=== PATIENT | male | born 1980 | race Caucasian/White ===

== ENCOUNTER 2019-11-09 22:14 | Emergency (ER) | payer BC, SELFPAY ==
[2019-11-09 22:17] VITALS: BP 108/89; PULSE 127; RESP 16; TEMP 36.7; O2SAT 100
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
[2019-11-09] MEDS: ziprasidone 20 mg/mL SDV IM (23:19)
--- NOTE | 2019-11-09 23:22 | PC.NURSE ---
PORTABLE XRAY AT BEDSIDE
--- NOTE | 2019-11-10 00:18 | PC.NURSE ---
pt return from CT by stretcher with RN
[2019-11-10 01:16] VITALS: BP 108/67; PULSE 117; O2SAT 95
[2019-11-10 02:26] VITALS: BP 118/78; PULSE 94; RESP 18; O2SAT 97
== END 2019-11-10 02:27 | disposition home or self-care (01) ==
PROVIDERS: Emergency Provider Emergency Medicine; Family Provider Family Medicine; PCP Family Medicine
DX: S51.812A Laceration without foreign body of left forearm, initial encounter (principal); S06.0X0A Concussion without loss of consciousness, initial encounter; F17.200 Nicotine dependence, unspecified, uncomplicated; F10.129 Alcohol abuse with intoxication, unspecified
CPT/HCPCS: 12002; 70450; 70486; 72125; 73090; 96372; 99281; 99283; J3486

== ENCOUNTER 2019-12-01 13:40 | Inpatient (IN) | payer BC, SELFPAY ==
[2019-12-01 13:42] VITALS: BP 142/90; PULSE 123; RESP 18; TEMP 36.4; O2SAT 98; BMI 24.3
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
[2019-12-01 14:33] LABS: Basophils # 0.1 10^3/uL (0.0-0.1); Basophils % 0.7 %; Eosinophils # 0.2 10^3/uL (0.0-0.8); Eosinophils % 2.7 %; Hematocrit 42.1 % (42.0-52.0); Lymphocytes # 1.5 10^3/uL (0.8-4.8); Mean Corpuscular HGB Conc 33.3 g/dL (30.0-36.0); Mean Corpuscular Hemoglobin 31.6 pg (28.0-34.0); Monocytes # 0.4 10^3/uL (0.2-0.9); Monocytes % 3.9 %; Neutrophils # 6.8 10^3/uL (1.8-7.7); Neutrophils % 75.5 %; Nucleated Red Blood Cells % 0 %; Platelet Count 316 10^3/cmm (130-400); Red Blood Count 4.43 10^6/uL (4.1-5.3); Red Cell Distribution Width 12.9 % (12.1-15.1)
[2019-12-01 14:50] LABS: Alanine Aminotransferase 25 U/L (0-41); Albumin Level 4.3 g/dL (3.5-5.2); Alkaline Phosphatase 78 IU/L (40-130); Anion Gap 15.5 (5-19); Aspartate Amino Transferase 21 U/L (0-40); Blood Urea Nitrogen 13 mg/dL (6-20); Calcium 9.4 mg/dL (8.5-10.5); Carbon Dioxide 26 mmol/L (22-29); Chloride 101 mmol/L (98-107); Globulin 3.1 g/dL (1.3-4.6); Glomerular Filtration Rate 107.1 mL/min (90-130); Glucose 101 mg/dL (65-115); Osmolality Calculated 282 mOsm/kg (285-295); Potassium 4.5 mmol/L (3.5-5.1); Sodium 138 mmol/L (136-145); Total Bilirubin 0.2 mg/dL (0.15-1.2); Total Protein 7.4 g/dL (6.6-8.7)
[2019-12-01 14:57] LABS: Acetaminophen < 5.0 ug/mL (10-30); Alcohol Level < 10 mg/dL (0-10); Salicylate < 0.3 mg/dL (3-10)
[2019-12-01 15:25] LABS: Amphetamines Screen Urine Positive (Negative); Barbiturates Screen Urine Negative (Negative); Benzodiazepines Screen Urine Positive (Negative); Cocaine Screen Urine Negative (Negative); Opiate Screen Urine Positive (Negative); PCP Screen Urine Negative (Negative); THC Screen Urine Negative (Negative)
[2019-12-01 15:29] VITALS: BP 119/75; PULSE 107; RESP 18
[2019-12-01 15:38] VITALS: BP 118/85; PULSE 109; RESP 18; O2SAT 96
[2019-12-01 22:00] VITALS: BP 107/63; PULSE 101; RESP 19; O2SAT 96
[2019-12-01] MEDS: nicotine 2 mg Gum BUCCAL (22:19)
[2019-12-01] MEDS: HYDROcodone-acetaminophen 10-325 mg Tablet 1 TAB PO (22:48)
--- NOTE | 2019-12-02 01:37 | PC.NURSE ---
Pt woke, after sleeping all evening, demanding to see the Dr, requesting meds, wanting to be discharged. was able to get pt calmed. pt c/o not having dinner, not being offered anything to drink. pt was reminded he was offered, and had eaten a sandwich. pt requested more food. pt reports he takes Xanax, and hydrocodone daily, and if I don't get it there will be hell to pay . Dr notified, a one time dose was ordered. Pt was thankful, and returned to room. Continue to monitor.
[2019-12-02 06:00] VITALS: BP 113/81; PULSE 95; RESP 15; TEMP 36.7; O2SAT 99
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
[2019-12-02] MEDS: nicotine 21 mg Patch 1 PATCH TRANSDERMA (10:16)
[2019-12-02] MEDS: HYDROcodone-acetaminophen 10-325 mg Tablet 1 TAB PO ×3 (10:32→22:37)
[2019-12-02 14:00] VITALS: BP 119/76; PULSE 68; RESP 18
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
[2019-12-02 22:00] VITALS: BP 105/67; PULSE 93; RESP 15; TEMP 36.8; O2SAT 96
[2019-12-02] MEDS: escitalopram 10 mg Tablet 20 MG PO (22:36)
[2019-12-03 06:00] VITALS: BP 120/76; PULSE 77; RESP 18; TEMP 36.8; O2SAT 97
[2019-12-03] MEDS: HYDROcodone-acetaminophen 10-325 mg Tablet 1 TAB PO (09:24)
[2019-12-03] MEDS: nicotine 21 mg Patch 1 PATCH TRANSDERMA (11:00)
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
[2019-12-03 14:33] VITALS: BP 120/76; PULSE 77; RESP 18; TEMP 36.8; O2SAT 97
== END 2019-12-03 15:13 | disposition home or self-care (01) | DRG 885 ==
LOC: ER 14:45 → NP 15:37
PROVIDERS: Emergency Provider Physician Assistant; Family Provider Family Medicine; PCP Family Medicine
DX: F31.63 Bipolar disorder, current episode mixed, severe, without psychotic features (principal); F19.20 Other psychoactive substance dependence, uncomplicated; F11.20 Opioid dependence, uncomplicated; R45.851 Suicidal ideations; F17.210 Nicotine dependence, cigarettes, uncomplicated
CPT/HCPCS: 12345; 36415; 80053; 80306; 80307; 85025; 99284; A9270

== ENCOUNTER 2020-04-06 18:26 | Inpatient (IN) | payer SELFPAY ==
[2020-04-06 18:29] VITALS: BMI 24.3
--- NOTE | 2020-04-06 18:31 | ECG_ITS ---
[facility] Test Date: 2020-04-06 Pat Name: Jay Kramer Department: Room: Gender: Male Manager Creative: : 1980 Requested By: Jaqueline Nicholson Order Number: [id number] Mehta MD: Gaby East M.D. Measurements Intervals Velma Rate: 90 P: 58 ID: [id number] QRS: 58 QRSD: 93 T: 45 QT: 344 QTc: 423 Interpretive Statements SINUS RHYTHM Compared to ECG 08/28/2019 08:37:14 No significant changes Electronically Signed On 04-06-2020 22:03:59 CDT by Gaby East M.D. [id number]
--- NOTE | 2020-04-06 18:37 | W.ED.GENADLT ---
HPI - General Adult General: Chief complaint: Psychiatric Symptoms Stated complaint: PSYCH EVAL Time Seen by Provider: 04/06/20 18:29 Review of Systems General: Reports: ROS unobtainable due to mental status PFSH ED PFSH: Social History Smoking and tobacco status: current every day smoker Physical Exam Const: COMMON NORMALS: patient oriented x3 HENMT: COMMON NORMALS: normocephalic, atraumatic, external ears normal, EAC's normal and Normal external nose present HEAD & SCALP: normal to inspection, normocephalic and atraumatic FACE & SINUS: normal facial exam and face symmetric NOSE: Normal external nose present and Normal nares present EXTERNAL EAR: Yes external ears normal EXTERNAL AUDITORY CANAL: EAC's normal MOUTH: Normal oral and palatal mucosa present, lip normal and tongue normal Eye: COMMON NORMALS: Equal, round and reactive pupils present and conjunctivae normal GENERAL EYE: appearance normal, both eyes and all related structures ALIGNMENT: Yes alignment normal PERIORBITAL: periorbital findings normal EYELID: eyelids normal CONJUNCTIVA: Yes conjunctivae normal SCLERA: sclerae normal PUPIL: Yes Equal, round and reactive pupils present Neck/C-Spine: COMMON NORMALS: full ROM, no lymphadenopathy, supple, no meningeal signs and no JVD GENERAL: Yes normal visual inspection and Yes trachea midline Chest: COMMONS NORMALS: normal inspection of the chest and normal palpation of entire chest wall Resp: COMMON NORMALS: normal respiratory effort, No retractions and No use of accessory muscles EFFORT & INSPECTION: Yes able to speak in complete sentences and Yes symmetric chest movement AUSCULTATION: no crackles, no rales, no rhonchi and no wheezes Cardio: COMMON NORMALS: no JVD, regular rate, regular rhythm, S1 normal heart sound present and S2 normal heart sound present RATE: regular rate RHYTHM: regular rhythm HEART SOUNDS: S1 normal heart sound present, S2 normal heart sound present, no click, no gallops, no murmurs, no rubs and abnormal split S2 GI: COMMON NORMALS: Soft to palpation and No hepatosplenomegaly present PALPATION: Yes Soft to palpation, No Tenderness to palpation present (GI), No Guarding due to palpation present (GI), No Rigid due to palpation, Yes No hepatosplenomegaly present, No Hernia present, No Palpable mass present and No Pulsatile mass present : COMMON NORMALS: Yes no CVA tenderness BLADDER/KIDNEY EXAM: Yes no CVA tenderness Back/Pelvis: COMMON NORMALS: no CVA tenderness, thoracic and lumbar spine normal to inspection, no thoracic nor lumbar tenderness and thoraco-lumbar ROM normal Extremity: COMMON NORMALS: normal to inspection, full ROM, capillary refill normal, no joint enlargement, no clubbing, cyanosis or edema and no calf tenderness Neuro: COMMON NORMALS: patient oriented x3, CN's II-XII intact bilaterally, moves all extremities, no focal motor deficits and no sensory deficits noted MENINGEAL SIGNS: Yes no meningeal signs SPEECH: speech normal Psych: APPEARANCE: Yes bizarre ATTITUDE: Yes evasive, Yes Guarded attititude/behavior present and Yes agitated ACTIVITY/MOTOR BEHAVIOR: Yes Avoids eye contact (attititude/behavior) SPEECH: Yes Pressured speech present Skin: COMMON NORMALS: no rashes or lesions noted, turgor normal, no jaundice, no petechiae and no mottling GENERAL SKIN EXAM: no rashes or lesions noted and turgor normal [facility] - General Adult EKG Data^: EKG 1: Attestation: I personally reviewed and interpreted this EKG as follows: EKG interpretation date: 04/06/20 EKG interpretation time: 18:55 Interpretation: Normal sinus rhythm at 90 beats a minute, normal intervals, no blocks. No acute ST-T wave changes. Discharge Plan Discharge Prescriptions: No Action Elvia-[place] Extra Strength See Rx Instructions .ROUTE .COMPLEX RF: 0 alprazolam 1 mg tablet 1 mg PO QID RF: 0 hydrocodone-acetaminophen 10-325 mg tablet 1 tab PO 6XD RF: 0 escitalopram oxalate 20 mg tablet 20 mg PO DAILY RF: 0 Coding Level of Care Code ED Appeals Examiner for Chg Fwd Exam Comprehensive
[2020-04-06] MEDS: haloperidol inj 5 mg/mL INJ 1 mL IM (18:43)
[2020-04-06] MEDS: LORazepam 2 mg/mL INJ 1 mL IM (18:44)
[2020-04-06 18:54] LABS: Basophils # 0.1 10^3/uL (0.0-0.1); Basophils % 0.6 %; Eosinophils # 0.2 10^3/uL (0.0-0.8); Eosinophils % 2.5 %; Hematocrit 43.3 % (42.0-52.0); Hemoglobin 14.8 g/dL (11.7-16.6); Lymphocytes # 2.1 10^3/uL (0.8-4.8); Lymphocytes % 22.9 %; Mean Corpuscular HGB Conc 34.2 g/dL (30.0-36.0); Mean Corpuscular Hemoglobin 31.2 pg (28.0-34.0); Mean Corpuscular Volume 91.4 fL (80-94); Mean Platelet Volume 9.9 fL (7.4-10.4); Monocytes # 0.3 10^3/uL (0.2-0.9); Monocytes % 3.5 %; Neutrophils # 6.56 10^3/uL (1.8-7.7); Neutrophils % 70.2 %; Nucleated Red Blood Cells % 0 %; Platelet Count 243 10^3/cmm (130-400); Red Blood Count 4.74 10^6/uL (4.1-5.3); White Blood Count 9.4 10^3/uL (4.0-10.0)
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
--- NOTE | 2020-04-06 19:15 | PC.NURSE ---
report recd from admitting RN. Pt resting comfortably in no apparent distress
[2020-04-06 19:18] LABS: Alanine Aminotransferase 17 U/L (0-41); Albumin Level 4.4 g/dL (3.5-5.2); Alkaline Phosphatase 89 IU/L (40-130); Anion Gap 14.6 (5-19); Aspartate Amino Transferase 15 U/L (0-40); Blood Urea Nitrogen 14 mg/dL (6-20); Calcium 8.9 mg/dL (8.5-10.5); Carbon Dioxide 27 mmol/L (22-29); Chloride 104 mmol/L (98-107); Globulin 3.2 g/dL (1.3-4.6); Glomerular Filtration Rate 74.1 mL/min (90-130); Glucose 109 mg/dL (65-115); Osmolality Calculated 291 mOsm/kg (285-295); Potassium 3.6 mmol/L (3.5-5.1); Sodium 142 mmol/L (136-145); Thyroid Stimulating Hormone 0.56 uIU/mL (0.27-4.20); Total Bilirubin 0.4 mg/dL (0.15-1.2); Total Protein 7.6 g/dL (6.6-8.7)
[2020-04-06 19:32] LABS: Acetaminophen < 5.0 ug/mL (10-30); Alcohol Level < 10 mg/dL (0-10); Salicylate < 0.3 mg/dL (3-10)
[2020-04-06 20:20] VITALS: BP 96/62; PULSE 81; RESP 12; TEMP 37; O2SAT 97
[2020-04-06 20:29] VITALS: BP 96/62; PULSE 81; RESP 12; TEMP 37; O2SAT 97
--- NOTE | 2020-04-06 21:31 | PC.NURSE ---
HOME MEDICATIONS UNABLE TO VERIFY PT HOME MEDS DUE TO PT SEDATION.
[2020-04-07 06:00] VITALS: BP 97/64; PULSE 81; RESP 16; TEMP 37.5; O2SAT 94
--- NOTE | 2020-04-07 10:52 | P.HP_ITS ---
Providers/Chief Complaint Admitting Physician: Oracio Senior MD Primary Care Provider: Ariel Bui DO Chief Complaint: PSYCH EVAL HPI NPU History of Present Illness Jay Kramer is a 39 year old male Jay presents today reporting having had presented to the emergency room on a 96-hour hold, wherein it was reported that he was telling the police that people were in the ceiling and reporting that things were being stolen from his house, and that he was called on a well-visit from his mother and they found him seemingly very disturbed and confused as to what was going on around him, somewhat agitated, and so he was brought to the emergency room on a 96-hour hold by the police. He was admitted to the neuropsychiatric unit for definitive treatment of these issues. This morning he is very adamant that the things that he said are accurate and that his family is stealing things from him, and that he needs to get home and manage his dogs. Attempts to try to redirect the conversation as to concerns about his drug use which was documented in his last hospitalization, but due to his irritability in the emergency room, they were unable to get a urine drug screen from him, so the likely diagnosis is going to be only arrived by rule outs and not by evidence of the methamphetamine in his urine. At one point, the situation got very dicey as he jumped to his feet and declared that he was going to be discharged today, right now, one way or another. I tried to explore what he meant by that, but he gave a look that somewhat answered the question and he was very posturing and so we finished the discussion by talking about his last hospitalization of which is included below, and some of the medications that were initiated in hopes that he would agree to at least restart his medication, but he refused medication, and only said that he would accept a discharge. PSYCHIATRIC HISTORY: As above. There is not a lot of information obtained from him, either now or even in the last evaluation. What we know is [facility] and he has had some connections to [facility] which was years ago, but he actually presented there such that there is no actual day that it was captured. No recent mental health treatment that can be seen or that he is sharing. SUBSTANCE ABUSE HISTORY: He endorses smoking and is very adamant about getting out and getting a smoke. He appears very much that he is on methamphetamine and was positive and exhibiting methamphetamine signs of using methamphetamine the last time he was here in November, but we do not have any drug screen to verify, and again he is not willing to discuss much more. Per November 2019 eval: History of Present Illness Jay Kramer is a 39 year old male who yesterday got into an argument with his family and became so angry he said he felt like blowing his head off. He does have firearms at home. I believe one of them is a shotgun. He was brought in by law enforcement, who had been called to the home by the patient's children, who became very concerned upon hearing his suicidal expression. He has been 96'd, as I understand it. I thought initially that this was nothing more than a family fracas. However, upon examining this man, it is apparent t hat he is floridly manic, with racing thoughts and flight of ideas, talking over me and interrupting me, distracting me as I tried to document his treatment and basically impaired in thought processes, communication, insight and judgment. He says he is responsible for his family and there are things he has to take care of and someone stole some money and he blew up and did not mean it. He says he feels terrible because he did not get his medicine. That may be because he is overmedicated with controlled substances, receiving alprazolam 1 mg p.o. 4 times daily, which I have not prescribed in years. He will need to be weaned down off of that and in the meantime got on a mood stabilizer. He does have multiple fractures in his history and the hydrocodone needs to be readjusted. He is basically unable to give me a coherent history. Review of Systems Narrative: It is nearly impossible to get a coherent review of systems from this man. The ED physicians ROS is probably correct with respect to physical symptoms but he is anxious, dysphoric and denies suicidal or homicidal ideation, plan or intent. Meds NPU Home Medications Medication Instructions Recorded Confirmed Type Elvia-Inez Extra Strength See Rx Instructions .ROUTE .COMPLEX 12/01/19 12/01/19 History alprazolam 1 mg PO QID 12/01/19 12/01/19 History escitalopram oxalate 20 mg PO DAILY 12/01/19 12/01/19 History hydrocodone-acetaminophen 1 tab PO 6XD 12/01/19 12/01/19 History Allergies Allergy/AdvReac Type Severity Reaction Status Date / Time No Known Allergies Allergy Verified 11/09/19 22:22 PFSH NPU PFSH: Social History Smoking and tobacco status: current every day smoker Other Psychiatric History: Other Psychiatric History: Right now, every time I start talking he starts talking and complete questions and coherent answers are hard to come by. He has been treated before and says with respect to bipolar disorder, I have heard of it. He then looks down at the floor. I asked him about lithium. Again, I have heard of it. Again he averts his gaze. Supplemental [facility] Information: This is a highly dysfunctional family but I am not able to elicit history that illuminates his past or family history. I strongly suspect he has been hospitalized before with bipolar disorder. Home Safety: Firearms in home: Yes (I believe this should be rectified. Firearm should be reviewed locked down and inaccessible to the patient.) Firearms unloaded and locked?: No Mental Status Exam MSE Comments: This is a 39-year-old male who looks much older, definitely heavily weathered. Mood is profoundly dysphoric and agitated and affect is labile and hyperbolic. Thought processes are completely disrupted, racing, with flight of ideas. Speech is greatly pressured. It is not possible to complete a sentence in his presence. Cognitive functions are impossible to accurately assess but they appear to be within an average range. Insight and judgment are gone. He now denies suicidal or homicidal ideation, plan or intent. Vitals/I&O/Wt Last Vital Signs Temp 98.1 F 12/02/19 06:00 Pulse 95 12/02/19 06:00 Resp 15 12/02/19 06:00 BP 113/81 12/02/19 06:00 Pulse Ox 99 12/02/19 06:00 Weight last 48 hrs Weight 227 lb 4 oz Weight 170 lb Data NPU : 12/01/19 14:22 document embedded image 12/01/19 14:22 document embedded image A&P Assessment and plan (1) Polysubstance abuse: Needless to say this man's UDS, behavior and prescribed controlled substances confirmed the diagnosis. The latter need to be rectified. I cannot see him on long-term controlled substances without resolution of his psychiatric disorder and establishment of competent pain management. Status: Acute Code(s): F19.10 - Other psychoactive substance abuse, uncomplicated (2) Suicidal ideation: This may have been a bit of hyperbole. However, taken with his current clinical condition combined with his substance abuse, this is a disaster waiting to happen. His pharmacotherapy needs to be revised. He refuses to take lithium or anything else that might stabilize his mood. He is definitely appropriately involuntarily hospitalized. Status: Acute Code(s): R45.851 - Suicidal ideations (3) Bipolar disorder, curr episode mixed, severe, w/o psychotic features: The patient displays multiple indicia of a florid mixed episode. Taken with his current clinical condition combined with his substance abuse, this is a disaster waiting to happen. His pharmacotherapy needs to be revised. He refuses to take lithium or anything else that might stabilize his mood. He is definitely appropriately involuntarily hospitalized. Status: Acute Code(s): F31.63 - Bipolar disorder, current episode mixed, severe, without psychotic features (4) Polysubstance dependence including opioid type drug, episodic abuse: A complete revision of the patient's pharmacotherapy and weaning off of controlled substances as much as is practicable and appropriate given his chronic pain problems must be undertaken Status: Acute Code(s): F11.20 - Opioid dependence, uncomplicated; F19.20 - Other psychoactive substance dependence, uncomplicated Meds NPU Home Medications Medication Instructions Recorded Confirmed Last Taken Type Elvia-Inez Extra Strength See Rx Instructions .ROUTE .COMPLEX 12/01/19 12/01/19 Unknown History alprazolam 1 mg PO QID 12/01/19 12/01/19 Unknown History escitalopram oxalate 20 mg PO DAILY 12/01/19 12/01/19 Unknown History hydrocodone-acetaminophen 1 tab PO 6XD 12/01/19 12/01/19 Unknown History Allergies Allergy/AdvReac Type Severity Reaction Status Date / Time No Known Allergies Allergy Verified 11/09/19 22:22 PFSH NPU PFSH: Social History Smoking and tobacco status: current every day smoker Mental Status Exam MSE Comments: This is a well-nourished, well-developed, white male, with ad equate dress, grooming, and eye contact. No abnormal movements except for psychomotor agitation. Mostly uncooperative with exam in moderate distress. Speech was fractured and increased rate, but decreased volume. Mood not described, but affect was irritable. Thought process, linear. Thought content: patient denied any suicidal or homicidal ideation, there were no delusions reported but clear paranoia and persecutory delusions existed. He did not appear to be attending to internal stimuli. Attention and concentration were limited, and memory was unreliable, but none were formally tested. He is alert and oriented to person and place. Insight and judgment are impaired. Impulse control is impaired. Vitals/I&O/Wt Last Vital Signs Temp 98.6 F 04/07/20 20:03 Pulse 84 04/07/20 20:03 Resp 17 04/07/20 20:03 BP 121/72 04/07/20 20:03 Pulse Ox 96 04/07/20 20:03 Weight last 48 hrs Weight 77.111 kg Data NPU : 04/06/20 18:47 04/06/20 18:47 A&P Assessment and plan (1) Methamphetamine dependence: Status: Acute (2) Psychosis: Status: Acute Additional A&P Information This is a 39 year old, white male, who presents with psychosis and likely methamphetamine intoxication, who is on a 96-hour hold, but demanding to leave. Continue current medications and continue to offer antipsychotics. Continue q 15-minute checks for safety. Encourage individual, group, and milieu therapy. Encourage discharge to a sober living facility at the highest level of treatment to which he is willing to commit. . Involuntary Hold Information 96 Hour Hold: 96 Hour Involuntary Admission: Yes 96 Hour Hold Ending Date: 04/11/20 96 Hour Hold Ending Time: 12:01 Attestations NPU Medical Necessity Statement*: Inpatient hospitalization is medically n ecessary, and the clinically appropriate intervention at this time. We will work with patient to try to get some medications on board, but he is currently resistant. He will be in the hospital for over two midnights. Likely length of stay two to four days Coding Level of Care Code Acute Medical Legal Investigator for Jessika Adrian Diagnoses Methamphetamine dependence F15.20 Psychosis F29
[2020-04-07 14:00] VITALS: BP 108/74; PULSE 92; RESP 20; TEMP 37; O2SAT 98
[2020-04-07] MEDS: nicotine 2 mg Gum BUCCAL (19:13)
[2020-04-07] MEDS: hyDROXYzine 25 mg Capsule 50 MG PO (19:26)
[2020-04-07 20:03] VITALS: BP 121/72; PULSE 84; RESP 17; TEMP 37; O2SAT 96
[2020-04-08 06:00] VITALS: BP 123/77; PULSE 78; RESP 17; TEMP 37; O2SAT 99
--- NOTE | 2020-04-08 11:58 | P.PN_ITS ---
Subjective NPU Subjective: Interval history: Jay presents today certainly less irritable than yesterday and not appearing as dangerous and volatile, however he did get into a conflict because of his irritability with another patient, who was also fairly high strung in this moment. He continued to downplay any report by the police or other affidavits and demanding to go home. He was much more reasoned and allowed for my opinion, that I have significant concerns about his safety and the safety of others, based on where he is and that is our job with a 96- hour hold to determine the safety for discharge. I again offered him medication to likely expedite his recovery from the methamphetamine, he continues to refuse, and continues to demand that he be discharged because he has so many things to do. Mental Status Exam MSE Comments: This is a well-nourished, well-developed, white male, with ad equate dress, grooming, and eye contact. No abnormal movements except for psychomotor agitation. Mostly uncooperative with exam in mild to moderate distress. Speech was less fractured and more normal rate and volume. Mood described as fine, but affect was irritable. Thought process, linear. Thought content: patient denied any suicidal or homicidal ideation, there were no delusions reported but clear paranoia and persecutory delusions existed. He did not appear to be attending to internal stimuli. Attention and concentration were limited but improving, and memory was unreliable, but none were formally tested. He is alert and oriented to person and place. Insight and judgment are impaired. Impulse control is impaired. Vitals/I&O/Wt Last Vital Signs Temp 98.2 F 04/08/20 20:04 Pulse 80 04/08/20 20:04 Resp 14 04/08/20 20:04 BP 126/84 04/08/20 20:04 Pulse Ox 97 04/08/20 20:04 Data NPU : 04/06/20 18:47 04/06/20 18:47 A&P Additional A&P Information (1) Methamphetamine dependence: (2) Psychosis: This is a 39 year old, white male, who presents with psychosis and likely methamphetamine intoxication, who is on a 96-hour hold, but demanding to leave. Continue current medications and continue to offer antipsychotics. Continue q 15-minute checks for safety. Encourage individual, group, and milieu therapy. Encourage discharge to a sober living facility at the highest level of treatment to which he is willing to commit. Involuntary Hold Information 96 Hour Hold: 96 Hour Involuntary Admission: Yes 96 Hour Hold Ending Date: 04/11/20 96 Hour Hold Ending Time: 12:01 Attestations NPU Medical Necessity Statement*: Inpatient hospitalization is medically necessary, and the clinically appropriate intervention at this time. We will work with patient to try to get some medications on board, but he is currently resistant. He will be in the hospital for over two midnights. Likely length of stay 1-3 days Coding Level of Care Code Acute Recreation Instructor for Jessika Adrian
[2020-04-08 13:58] VITALS: BP 128/86; PULSE 86; RESP 18; TEMP 36.3; O2SAT 97
[2020-04-08] MEDS: OLANZapine 5 mg ODT PO (15:30)
--- NOTE | 2020-04-08 15:31 | PC.NURSE ---
PATIENT C/O ANXIETY. REPORTS PEOPLE KEEP YELLING IN HIS DOORWAY, YET NO ONE IS PRESENT. ZYPREXA 5MG ADMINISTERED. WILL MONITOR FOR DRUG EFFECTIVENESS
[2020-04-08 20:04] VITALS: BP 126/84; PULSE 80; RESP 14; TEMP 36.8; O2SAT 97
[2020-04-08] MEDS: hyDROXYzine 25 mg Capsule 50 MG PO (20:21)
[2020-04-08] MEDS: trazodone 50 mg Tablet PO (20:21)
--- NOTE | 2020-04-09 00:06 | PC.NURSE ---
PRN TRAZODONE & VISTARIL PT REQUESTING SLEEP AID AND ANXIETY MEDICATION. ADMINISTERED TRAZODONE 50 MG PO FOR SLEEP & VISTARIL 50 MG PO FOR ANXIETY.
[2020-04-09 06:00] VITALS: BP 120/82; PULSE 69; RESP 13; TEMP 37; O2SAT 96
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
[2020-04-09 16:12] VITALS: BP 120/82; PULSE 69; RESP 13; TEMP 37; O2SAT 96
== END 2020-04-09 16:19 | disposition home or self-care (01) | DRG 885 ==
LOC: ER 18:42 → NP 19:18
PROVIDERS: Emergency Medicine; Admitting Provider Psychiatry & Neurology Psychiatry; PCP Family Medicine; Visit Provider Psychiatry & Neurology Psychiatry
DX: F31.63 Bipolar disorder, current episode mixed, severe, without psychotic features (principal); R45.851 Suicidal ideations; F11.20 Opioid dependence, uncomplicated; F19.10 Other psychoactive substance abuse, uncomplicated; F17.210 Nicotine dependence, cigarettes, uncomplicated
CPT/HCPCS: 12345; 80053; 80307; 84443; 85025; 93005; 96372; 99284; J1630; J2060

== ENCOUNTER 2020-05-19 03:01 | Emergency (ER) | payer SELFPAY ==
[2020-05-19 03:09] VITALS: BP 166/94; PULSE 109; RESP 23; TEMP 37.5; O2SAT 97; BMI 23.6
[2020-05-19] MEDS: LORazepam 2 mg/mL INJ 1 mL IM (03:26)
[2020-05-19] MEDS: ziprasidone 20 mg/mL SDV IM (03:26)
[2020-05-19 03:36] VITALS: BP 138/87; PULSE 113; RESP 22; O2SAT 98
[2020-05-19 03:38] LABS: Basophils # 0.1 10^3/uL (0.0-0.1); Basophils % 0.9 %; Eosinophils # 0.4 10^3/uL (0.0-0.8); Eosinophils % 4.7 %; Hematocrit 43.3 % (42.0-52.0); Hemoglobin 14.6 g/dL (11.7-16.6); Lymphocytes # 2.4 10^3/uL (0.8-4.8); Lymphocytes % 29.6 %; Mean Corpuscular HGB Conc 33.7 g/dL (30.0-36.0); Mean Corpuscular Hemoglobin 30.9 pg (28.0-34.0); Mean Corpuscular Volume 91.7 fL (80-94); Monocytes # 0.4 10^3/uL (0.2-0.9); Monocytes % 4.7 %; Neutrophils # 4.76 10^3/uL (1.8-7.7); Neutrophils % 59.8 %; Nucleated Red Blood Cells % 0 %; Platelet Count 263 10^3/cmm (130-400); Red Blood Count 4.72 10^6/uL (4.1-5.3); Red Cell Distribution Width 12.7 % (12.1-15.1); White Blood Count 7.9 10^3/uL (4.0-10.0)
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
[2020-05-19 04:02] LABS: Alanine Aminotransferase 16 U/L (0-41); Albumin Level 4.3 g/dL (3.5-5.2); Alkaline Phosphatase 77 IU/L (40-130); Anion Gap 14.8 (5-19); Aspartate Amino Transferase 12 U/L (0-40); Blood Urea Nitrogen 12 mg/dL (6-20); Calcium 8.9 mg/dL (8.5-10.5); Carbon Dioxide 22 mmol/L (22-29); Chloride 107 mmol/L (98-107); Globulin 2.8 g/dL (1.3-4.6); Glomerular Filtration Rate 74.1 mL/min (90-130); Glucose 183 mg/dL (65-115); Osmolality Calculated 291 mOsm/kg (285-295); Potassium 3.8 mmol/L (3.5-5.1); Sodium 140 mmol/L (136-145); Total Bilirubin 0.2 mg/dL (0.15-1.2); Total Protein 7.1 g/dL (6.6-8.7)
[2020-05-19 04:03] LABS: Acetaminophen < 5.0 ug/mL (10-30); Alcohol Level < 10 mg/dL (0-10); Salicylate < 0.3 mg/dL (3-10)
[2020-05-19 04:33] VITALS: BP 102/73; PULSE 104; RESP 15; O2SAT 94
--- NOTE | 2020-05-19 04:39 | PC.NURSE ---
Patient appears to be sleeping peacefully. VSS stable. NAD noted. Will continue to monitor.
[2020-05-19 05:57] VITALS: BP 105/73; PULSE 77; RESP 14; O2SAT 96
[2020-05-19 06:00] VITALS: BP 105/73; PULSE 77; RESP 14; O2SAT 96
--- NOTE | 2020-05-19 06:37 | PC.NURSE ---
Attempted to D/C patient for the second time. Patient is arousable but does not fully wake up. Unable to discharge patient at this time. intellectual property manager aware of situation. VS remain Stable.
== END 2020-05-19 07:37 | disposition home or self-care (01) ==
PROVIDERS: Emergency Provider Emergency Medicine; PCP Family Medicine
DX: F19.950 Other psychoactive substance use, unspecified with psychoactive substance-induced psychotic disorder with delusions (principal); F17.210 Nicotine dependence, cigarettes, uncomplicated
CPT/HCPCS: 12345; 80053; 80307; 85025; 96372; 99284; J2060; J3486

== ENCOUNTER 2020-05-20 13:43 | Inpatient (IN) | payer SELFPAY ==
--- NOTE | 2020-05-20 13:45 | ECG_ITS ---
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 Measurements Intervals [place] Rate: 99 P: 58 ID: [id number] QRS: 61 QRSD: 94 T: 57 QT: 334 QTc: 430 Interpretive Statements SINUS RHYTHM Compared to ECG 04/06/2020 18:55:23 No significant changes Electronically Signed On 05-20-2020 20:35:02 CDT by Melanie Ballard M.D. [email or web address]
[2020-05-20 13:49] VITALS: BP 137/112; PULSE 106; RESP 20; TEMP 36.8; O2SAT 95; BMI 24.3
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
[2020-05-20] MEDS: diphenhydrAMINE 50 mg/mL SDV 1mL 25 MG IM (14:08)
[2020-05-20] MEDS: haloperidol inj 5 mg/mL INJ 1 mL IM (14:09)
[2020-05-20] MEDS: LORazepam 2 mg/mL INJ 1 mL IM (14:09)
[2020-05-20 14:17] LABS: Basophils # 0.1 10^3/uL (0.0-0.1); Eosinophils # 0.3 10^3/uL (0.0-0.8); Eosinophils % 5.2 %; Hematocrit 45.6 % (42.0-52.0); Hemoglobin 15.4 g/dL (11.7-16.6); Lymphocytes # 2.1 10^3/uL (0.8-4.8); Lymphocytes % 34.5 %; Mean Corpuscular HGB Conc 33.8 g/dL (30.0-36.0); Mean Corpuscular Hemoglobin 30.7 pg (28.0-34.0); Mean Corpuscular Volume 90.8 fL (80-94); Mean Platelet Volume 9.7 fL (7.4-10.4); Monocytes # 0.3 10^3/uL (0.2-0.9); Monocytes % 4.7 %; Neutrophils # 3.34 10^3/uL (1.8-7.7); Neutrophils % 54.4 %; Nucleated Red Blood Cells % 0 %; Platelet Count 267 10^3/cmm (130-400); Red Blood Count 5.02 10^6/uL (4.1-5.3); Red Cell Distribution Width 12.8 % (12.1-15.1); White Blood Count 6.1 10^3/uL (4.0-10.0)
[2020-05-20 14:33] LABS: INR 0.88 (0.8-1.2)
[2020-05-20 14:48] LABS: Alanine Aminotransferase 18 U/L (0-41); Albumin Level 4.4 g/dL (3.5-5.2); Alkaline Phosphatase 83 IU/L (40-130); Anion Gap 12.8 (5-19); Aspartate Amino Transferase 15 U/L (0-40); Blood Urea Nitrogen 11 mg/dL (6-20); Calcium 9.3 mg/dL (8.5-10.5); Carbon Dioxide 27 mmol/L (22-29); Chloride 104 mmol/L (98-107); Glomerular Filtration Rate 67.1 mL/min (90-130); Glucose 113 mg/dL (65-115); Osmolality Calculated 287 mOsm/kg (285-295); Potassium 3.8 mmol/L (3.5-5.1); Sodium 140 mmol/L (136-145); Total Bilirubin 0.3 mg/dL (0.15-1.2); Total Protein 7.4 g/dL (6.6-8.7)
[2020-05-20 14:49] LABS: Acetaminophen < 5.0 ug/mL (10-30); Alcohol Level < 10 mg/dL (0-10); Salicylate < 0.3 mg/dL (3-10)
[2020-05-20 15:00] LABS: Lithium 0.1 mmol/L (0.6-1.2); Phenytoin Dilantin 0.8 ug/mL (10-20); Valproic Acid Level 2.8 ug/mL (50-100)
--- NOTE | 2020-05-20 16:49 | PC.SOCIAL ---
mom called Analy Kramer [phone].. patient is using drugs (meth)
[2020-05-20 17:13] VITALS: BP 121/79; PULSE 103; RESP 20; TEMP 36.7; O2SAT 98
[2020-05-20 17:15] VITALS: BP 110/68; PULSE 87; RESP 18; O2SAT 98
[2020-05-20 22:00] VITALS: RESP 15
[2020-05-21 06:00] VITALS: RESP 16
--- NOTE | 2020-05-21 06:06 | PC.NURSE ---
The patient was awakened for vital signs. He refused. He was cursing and complaining to the staff member that he doesn't need to be in the hospital. He is refusing to cooperate at this time and I am unable to complete his admission assessments.
--- NOTE | 2020-05-21 06:11 | PC.NURSE ---
Patient refused vitals. Respirations were taken.
[2020-05-21 13:26] VITALS: RESP 18
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
[2020-05-21] MEDS: quetiapine 100 mg Tablet 200 MG PO (20:49)
--- NOTE | 2020-05-21 21:06 | PC.SOCIAL ---
Patient is concerned about his pet dog that is not being cared for.
[2020-05-21 21:39] VITALS: RESP 17
[2020-05-22 06:00] VITALS: RESP 17
[2020-05-22 09:07] VITALS: RESP 17
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
== END 2020-05-22 11:44 | disposition home or self-care (01) | DRG 885 ==
LOC: ER 14:23 → NP 15:56
PROVIDERS: Emergency Medicine; Admitting Provider Psychiatry & Neurology Psychiatry; PCP Family Medicine; Visit Provider Psychiatry & Neurology Psychiatry
DX: F29 Unspecified psychosis not due to a substance or known physiological condition (principal)
CPT/HCPCS: 12345; 36415; 80053; 80156; 80164; 80178; 80185; 80307; 84443; 85025; 85610; 93005; 96372; 99284; J1200; J1630; J2060

== ENCOUNTER 2020-11-28 17:06 | Inpatient (IN) | payer SELFPAY ==
[2020-11-28 17:07] VITALS: BP 140/87; PULSE 118; RESP 15; TEMP 36.6; O2SAT 98; BMI 25.1
[2020-11-28] MEDS: LORazepam 2 mg/mL INJ 1 mL IM (17:14)
[2020-11-28] MEDS: haloperidol inj 5 mg/mL INJ 1 mL (17:14)
[2020-11-28] MEDS: diphenhydrAMINE 50 mg/mL SDV 1mL (17:14)
--- NOTE | 2020-11-28 17:18 | ECG_ITS ---
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
[2020-11-28] MEDS: sodium chloride 0.9% 1,000 ML 999 ML IV (18:02)
--- NOTE | 2020-11-28 18:04 | W.ED.PSYCH ---
HPI - Psych General: Chief Complaint: Psychiatric Symptoms Stated Complaint: 96 HOUR HOLD Time Seen by Provider: 11/28/20 17:08 History of Present Illness: HPI Narrative: The patient is a 40-year-old male known meth abuser who comes to the ER in police custody after he apparently used methamphetamines and walked into the police station combative and aggressive. He was brought to the ED in handcuffs very combative and aggressive towards staff with fast pressured speech. MD complaint: altered mental status Duration: constant Relieving factors: none Exacerbating factors: none Context: recent drug abuse Associated symptoms: Deny depression Treatments prior to arrival: physical restraints Review of Systems General: Reports: 10 or more systems reviewed and unremarkable except in HPI and below Const: Denies: fatigue Eyes: Denies: change in vision, blurry vision or eye redness ENMT: Denies: throat pain, swelling of lips/tongue, ear or mastoid pain or nasal congestion Card: Denies: chest pain, palpitations, irregular heart rhythm, edema, dyspnea on exertion or orthopnea Resp: Denies: dyspnea, productive cough or non-productive cough GI: Denies: abdominal pain, diarrhea or GI cramping : Denies: flank pain, urinary frequency or urinary urgency Musc: Denies: neck pain, back pain, extremity pain, joint pain, joint redness, limited range of motion or muscle weakness Skin/Breast: Denies: rash, pruritus, erythema, skin pain or skin tenderness Neuro: Denies: headache(s), numbness in extremities, weakness in extremities, sensory changes, difficulty walking, dizziness, confusion or Slurred speech present Psych: Denies: anxiety or depression Endo: Denies: polyuria All/Imm: Denies: urticaria, throat swelling or tongue swelling PFS ED PFSH: Social History Smoking and tobacco status: current every day smoker Physical Exam Const: COMMON NORMALS: alert GENERAL APPEARANCE: combative and disheveled ORIENTATION/CONSCIOUSNESS: Yes oriented to person, Yes oriented to place and Yes oriented to time OTHER: Acutely psychotic likely on methamphetamines he agitated and assaultive behaviors. In handcuffs. Placed in four-point restraints shortly after he was medicated HENMT: COMMON NORMALS: normocephalic, external ears normal and Normal external nose present HEAD & SCALP: normal to inspection and normocephalic NOSE: Normal external nose present EXTERNAL EAR: Yes external ears normal MOUTH: Normal oral and palatal mucosa present THROAT: posterior oropharynx normal Eye: COMMON NORMALS: Equal, round and reactive pupils present and EOMs intact bilaterally GENERAL EYE: appearance normal, both eyes and all related structures PUPIL: Yes Equal, round and reactive pupils present Neck/C-Spine: COMMON NORMALS: full ROM, no lymphadenopathy, no meningeal signs and no JVD GENERAL: Yes normal visual inspection Lymph: LYMPHATIC: no lymphadenopathy noted Chest: COMMONS NORMALS: normal inspection of the chest and normal palpation of entire chest wall Resp: COMMON NORMALS: normal respiratory effort, No retractions, No use of accessory muscles, clear to auscultation bilaterally and percussion normal EFFORT & INSPECTION: Yes able to speak in complete sentences AUSCULTATION: clear to auscultation bilaterally PERCUSSION: percussion normal Cardio: COMMON NORMALS: no JVD, regular rhythm, S1 normal heart sound present, S2 normal heart sound present and Peripheral pulses 2+ throughout RATE: tachycardic RHYTHM: regular rhythm HEART SOUNDS: S1 normal heart sound present and S2 normal heart sound present PERIPHERAL PULSES: Peripheral pulses 2+ throughout GI: COMMON NORMALS: Normal to inspection, nondistended, normoactive bowel sounds present, Soft to palpation, non-tender and no masses INSPECTION: Yes normal to inspection PALPATION: Yes Soft to palpation : COMMON NORMALS: Yes no CVA tenderness BLADDER/KIDNEY EXAM: Yes no CVA tenderness Back/Pelvis: COMMON NORMALS: no CVA tenderness, thoracic and lumbar spine normal to inspection, no thoracic nor lumbar tenderness and thoraco-lumbar ROM normal Extremity: COMMON NORMALS: normal to inspection, full ROM, capillary refill normal, no joint enlargement and no pedal edema GENERAL: Yes normal exam except as noted Neuro: COMMON NORMALS: CN's II-XII intact bilaterally, moves all extremities, no focal motor deficits, no sensory deficits noted and gait normal SENSORIUM/ORIENTATION: Yes alert, Yes oriented to person, Yes oriented to place and Yes oriented to time MENINGEAL SIGNS: Yes no meningeal signs Psych: APPEARANCE: Yes unkempt ATTITUDE: Yes agitated, Yes aggressive and Yes hostile ACTIVITY/MOTOR BEHAVIOR: Yes psychomotor agitation, Yes hyperactivity, Yes disorganized behavior and Yes restless SPEECH: Yes excessive, Yes rapid and Yes Pressured speech present MOOD & AFFECT: Yes hostile affect THOUGHT PROCESS: disorganized, Flight of ideas present, Tangential thought process present and racing thoughts INSIGHT: Poor insight present (Psych) JUDGEMENT: Poor judgement present (Psych) Skin: COMMON NORMALS: no rashes or lesions noted GENERAL SKIN EXAM: no rashes or lesions noted MDM - Psych MDM Narrative: Medical decision making narrative: Patient comes to the ER acutely psychotic and on methamphetamines. He was given Haldol, Ativan, and Benadryl as he was assaultive and aggressive towards staff. He is now resting comfortably. Discussed with Dr. Monroy who accepts for admission. Lab Data: Labs: Lab Results 11/28/20 11/28/20 11/28/20 Range/Units 17:51 17:51 18:00 WBC 9.8 (4.0-10.0) 10^3/ uL RBC 4.74 (4.1-5.3) 10^6/u L Hgb 14.6 (11.7-16.6) g/dL Hct 43.9 (42.0-52.0) % MCV 92.6 (80-94) fL MCH 30.8 (28.0-34.0) pg MCHC 33.3 (30.0-36.0) g/dL RDW 12.5 (12.1-15.1) % Plt Count 262 (130-400) 10^3/c mm MPV 10.9 H (7.4-10.4) fL Neut % (Auto) 70.0 % Lymph % (Auto) 21.6 % [place] % (Auto) 4.7 % Eos % (Auto) 2.8 % Baso % (Auto) 0.6 % Neut # (Auto) 6.88 (1.8-7.7) 10^3/u L Lymph # (Auto) 2.1 (0.8-4.8) 10^3/u L [place] # (Auto) 0.5 (0.2-0.9) 10^3/u L Eos # (Auto) 0.3 (0.0-0.8) 10^3/u L Baso # (Auto) 0.1 (0.0-0.1) 10^3/u L Nucleated RBC % (a uto) 0 % Nucleated RBCs # 0.0 /100WBC Sodium 141 (136-145) mmol/L Potassium 3.4 L (3.5-5.1) mmol/L Chloride 105 (98-107) mmol/L Carbon Dioxide 23 (22-29) mmol/L Anion Gap 16.4 (5-19) BUN 15 (6-20) mg/dL Creatinine 1.0 (0.7-1.2) mg/dL GFR Calculation 82.3 L (90-130) mL/min Glucose 104 (65-115) mg/dL Calculated Osmolal ity 293 (285-295) mOsm/k g Calcium 8.9 (8.5-10.5) mg/dL Total Bilirubin 0.3 (0.15-1.2) mg/dL AST 18 (0-40) U/L ALT 14 (0-41) U/L Alkaline Phosphata se 84 (40-130) IU/L Creatine Kinase 431 H* (39-308) U/L Total Protein 6.8 (6.6-8.7) g/dL Albumin 4.1 (3.5-5.2) g/dL Globulin 2.7 (1.3-4.6) g/dL Urine Color Yellow (Yellow) Urine Appearance Hazy A (CLEAR) Urine pH 6.5 (5-7) Ur Specific Gravit y 1.025 (1.005-1.030) Urine Protein Trace (Negative) Urine Glucose (UA) Norm (Normal) Urine Ketones Negative (Negative) Urine Blood 2+ H (Negative) Urine Nitrate Positive H (Negative) Urine Bilirubin Neg (Negative) Urine Urobilinogen 1 H (Negative) mg/dL Ur Leukocyte Beverly ase Negative (Negative) Urine RBC 0-4 H (0-2) /hpf Urine WBC None (0-5) /hpf Ur Squamous Epith Cells 0-4 H (0-5) /hpf Amorphous Sediment 2+ /hpf Urine Bacteria 1+ H (NONE) /hpf Salicylates 0.4 L (3-10) mg/dL Urine Opiates Scre en (Negative) ng/mL Acetaminophen < 5.0 L (10-30) ug/mL Ur Barbiturates Sc reen (Negative) ng/mL Ur Phencyclidine S crn (Negative) ng/mL Ur Amphetamines Sc reen (Negative) ng/mL U Benzodiazepines Scrn (Negative) ng/mL Urine Cocaine Scre en (Negative) ng/mL U Marijuana (THC) Screen (Negative) ng/mL Ethyl Alcohol < 10 (0-10) mg/dL 11/28/20 Range/Units 18:00 WBC (4.0-10.0) 10^3/ uL RBC (4.1-5.3) 10^6/u L Hgb (11.7-16.6) g/dL Hct (42.0-52.0) % MCV (80-94) fL MCH (28.0-34.0) pg MCHC (30.0-36.0) g/dL RDW (12.1-15.1) % Plt Count (130-400) 10^3/c mm MPV (7.4-10.4) fL Neut % (Auto) % Lymph % (Auto) % [place] % (Auto) % Eos % (Auto) % Baso % (Auto) % Neut # (Auto) (1.8-7.7) 10^3/u L Lymph # (Auto) (0.8-4.8) 10^3/u L [place] # (Auto) (0.2-0.9) 10^3/u L Eos # (Auto) (0.0-0.8) 10^3/u L Baso # (Auto) (0.0-0.1) 10^3/u L Nucleated RBC % (a uto) % Nucleated RBCs # /100WBC Sodium (136-145) mmol/L Potassium (3.5-5.1) mmol/L Chloride (98-107) mmol/L Carbon Dioxide (22-29) mmol/L Anion Gap (5-19) BUN (6-20) mg/dL Creatinine (0.7-1.2) mg/dL GFR Calculation (90-130) mL/min Glucose (65-115) mg/dL Calculated Osmolal ity (285-295) mOsm/k g Calcium (8.5-10.5) mg/dL Total Bilirubin (0.15-1.2) mg/dL AST (0-40) U/L ALT (0-41) U/L Alkaline Phosphata se (40-130) IU/L Creatine Kinase (39-308) U/L Total Protein (6.6-8.7) g/dL Albumin (3.5-5.2) g/dL Globulin (1.3-4.6) g/dL Urine Color (Yellow) Urine Appearance (CLEAR) Urine pH (5-7) Ur Specific Gravit y (1.005-1.030) Urine Protein (Negative) Urine Glucose (UA) (Normal) Urine Ketones (Negative) Urine Blood (Negative) Urine Nitrate (Negative) Urine Bilirubin (Negative) Urine Urobilinogen (Negative) mg/dL Ur Leukocyte Beverly ase (Negative) Urine RBC (0-2) /hpf Urine WBC (0-5) /hpf Ur Squamous Epith Cells (0-5) /hpf Amorphous Sediment /hpf Urine Bacteria (NONE) /hpf Salicylates (3-10) mg/dL Urine Opiates Scre en Negative (Negative) ng/mL Acetaminophen (10-30) ug/mL Ur Barbiturates Sc reen Negative (Negative) ng/mL Ur Phencyclidine S crn Negative (Negative) ng/mL Ur Amphetamines Sc reen Positive H (Negative) ng/mL U Benzodiazepines Scrn Negative (Negative) ng/mL Urine Cocaine Scre en Negative (Negative) ng/mL U Marijuana (THC) Screen Negative (Negative) ng/mL Ethyl Alcohol (0-10) mg/dL Discharge Plan Discharge Patient Disposition: Admitted As Inpatient Clinical Impression: Acute psychosis, Methamphetamine abuse Condition: Stable Coding Level of Care Code ED Diesel Engine Operator for Jessika Fwflako Exam Comprehensive
[2020-11-28 18:10] VITALS: BP 119/73; PULSE 88; RESP 16; O2SAT 97
--- NOTE | 2020-11-28 18:10 | PC.NURSE ---
resumed patient care at 1740, patient resting, easily arousable, no acute distress noted at this time
--- NOTE | 2020-11-28 18:15 | PC.NURSE ---
patient drowsy after medication administered, no acute distress noted at this time
--- NOTE | 2020-11-28 18:27 | PC.NURSE ---
patient cooperative restrains removed at 1800, continue to monitor
[2020-11-28 18:34] LABS: Basophils # 0.1 10^3/uL (0.0-0.1); Basophils % 0.6 %; Eosinophils # 0.3 10^3/uL (0.0-0.8); Eosinophils % 2.8 %; Hematocrit 43.9 % (42.0-52.0); Hemoglobin 14.6 g/dL (11.7-16.6); Lymphocytes # 2.1 10^3/uL (0.8-4.8); Lymphocytes % 21.6 %; Mean Corpuscular HGB Conc 33.3 g/dL (30.0-36.0); Mean Corpuscular Hemoglobin 30.8 pg (28.0-34.0); Mean Corpuscular Volume 92.6 fL (80-94); Mean Platelet Volume 10.9 fL (7.4-10.4); Monocytes # 0.5 10^3/uL (0.2-0.9); Monocytes % 4.7 %; Neutrophils # 6.88 10^3/uL (1.8-7.7); Nucleated Red Blood Cells % 0 %; Platelet Count 262 10^3/cmm (130-400); Red Blood Count 4.74 10^6/uL (4.1-5.3); Red Cell Distribution Width 12.5 % (12.1-15.1); White Blood Count 9.8 10^3/uL (4.0-10.0)
[2020-11-28 18:38] VITALS: PULSE 84; RESP 16; O2SAT 96
[2020-11-28 18:38] LABS: Amphetamines Screen Urine Positive (Negative); Barbiturates Screen Urine Negative (Negative); Benzodiazepines Screen Urine Negative (Negative); Cocaine Screen Urine Negative (Negative); Opiate Screen Urine Negative (Negative); PCP Screen Urine Negative (Negative); THC Screen Urine Negative (Negative)
[2020-11-28 18:42] LABS: Urine Appearance Hazy (CLEAR); Urine Color Yellow (Yellow)
[2020-11-28 18:43] LABS: Add Urine Microscopic? YES; Bilirubin Urine Neg (Negative); Blood Urine 2+ (Negative); Glucose Urine UA Norm (Normal); Ketones Urine Negative (Negative); Leukocyte Esterase Urine Negative (Negative); Nitrate Urine Positive (Negative); Protein Urine Trace (Negative); Specific Gravity, Urine 1.025 (1.005-1.030); Urobilinogen Urine 1 mg/dL (Negative); pH Urine 6.5 (5-7)
[2020-11-28 18:44] LABS: Alanine Aminotransferase 14 U/L (0-41); Albumin Level 4.1 g/dL (3.5-5.2); Alkaline Phosphatase 84 IU/L (40-130); Anion Gap 16.4 (5-19); Aspartate Amino Transferase 18 U/L (0-40); Blood Urea Nitrogen 15 mg/dL (6-20); Calcium 8.9 mg/dL (8.5-10.5); Carbon Dioxide 23 mmol/L (22-29); Chloride 105 mmol/L (98-107); Globulin 2.7 g/dL (1.3-4.6); Glomerular Filtration Rate 82.3 mL/min (90-130); Glucose 104 mg/dL (65-115); Osmolality Calculated 293 mOsm/kg (285-295); Potassium 3.4 mmol/L (3.5-5.1); Salicylate 0.4 mg/dL (3-10); Sodium 141 mmol/L (136-145); Total Bilirubin 0.3 mg/dL (0.15-1.2); Total Protein 6.8 g/dL (6.6-8.7)
[2020-11-28 18:45] LABS: Acetaminophen < 5.0 ug/mL (10-30)
[2020-11-28 18:46] LABS: Alcohol Level < 10 mg/dL (0-10); Creatine Phosphokinase 431 U/L (39-308)
[2020-11-28 18:47] LABS: Add Urine Culture? Yes; Amorphous Sediment Urine 2+ /hpf; Bacteria Urine 1+ /hpf; RBC Urine 0-4 /hpf (0-2); Squamous Epithelial Cell Urine 0-4 /hpf (0-5)
--- NOTE | 2020-11-28 19:03 | PC.NURSE ---
This nurse taking over patient care at this time. Pt resting quietly in bed at this time with eyes closed, respirations appear even and unlabored. 1:1 sitter at bedside.
[2020-11-28 19:48] VITALS: BP 106/64; PULSE 78; RESP 16; O2SAT 96
[2020-11-28 20:09] VITALS: BP 116/76; PULSE 86; RESP 17; TEMP 36.6; O2SAT 97
[2020-11-29 06:00] VITALS: RESP 16
--- NOTE | 2020-11-29 10:52 | PM.SDS ---
Short Stay Summary Providers Date of Admit/Discharge: 11/29/20 Attending Provider: Gaby Monroy DO Primary Care Provider: Ariel Bui DO Chief Complaint: 96 HOUR HOLD HPI History of Present Illness Jay Kramer is a 40 year old male with longstanding history of polysubstance abuse but notably methamphetamine abuse with frequent presentations to the police department requesting to be taken to the emergency department secondary to drug induced psychotic symptoms to include paranoia. Patient presented to the police yesterday and was placed on 96-hour hold and was brought to the emergency department in the same manner as usual with paranoia and psychotic symptoms. Patient refusing evaluation and refusing to participate in care stating that he has no interest in treatment and no interest in taking any medications for his symptoms. Remarkably, patient stated that he has no interest in substance counseling and treatment. Review of chart documents that the patient typically only has mood symptoms and psychotic symptoms in the context of acute methamphetamine intoxication and typically refuses care and typically requests discharge after being brought to the hospital by police at the patient's request. Review of Systems General: Reports: Other (Refuses to participate in interview) Home Meds/Allergies Home Medications and Allergies Allergies Allergy/AdvReac Type Severity Reaction Status Date / Time No Known Allergies Allergy Verified 05/19/20 03:16 PFSH Acute PFSH: Social History Smoking and tobacco status: current every day smoker Vitals/I&O/Wt Last Vital Signs Temp 97.9 F 11/28/20 20:09 Pulse 86 11/28/20 20:09 Resp 16 11/29/20 06:00 BP 116/76 11/28/20 20:09 Pulse Ox 97 11/28/20 20:09 11/28/20 11/29/20 11/29/20 22:59 06:59 14:59 Intake Total 1000 / 1000 Balance 1000 / 1000 Weight last 48 hrs Weight 79.379 kg Physical Exam Narrative: EXAM NARRATIVE: MSE: Appears stated age, tired appearing, appropriately dressed in hospital scrubs, angry, poor rapport, poor eye contact Some psychomotor restlessness, verbal agitation but no physical agitation Speech is loud, not pressured, fair articulation, spontaneous I am pissed, leave me alone, congruent affect, irritable and angry Alert and oriented to person, place, time, situation Memory and concentration appear to be fair to intact Intellectual functioning appears to be below average to average at best based on vocabulary, interview Thought process, linear but brief, no flight of ideas, no looseness of associations Thought content, overvalued ideas, paranoia, does not appear to be attending to any internal stimuli, no suicidal or homicidal ideation Insight and judgment appear to be fair given patient's ongoing use of substances Hospital Course Hospital Course Patient with longstanding history of polysubstance abuse, methamphetamine dependence, intermittently presents under same circumstances of going to police department requesting to be taken to the emergency department with paranoia and substance-induced psychotic symptoms, routinely refusing care and becoming angry and asking to leave hospital. Patient was volunteered treatment for symptoms as well as coordination for post discharge substance counseling/treatment but refused. Low to moderate risk of harm to self and others given no current suicidal ideation although patient continues to be an elevated risk under circumstances of longstanding history of noncompliance with recommendation to abstain from the use of substances and alcohol as well as noncompliance with follow-up psychiatric care to include medication management which will continue to elevate his risk for unexpected, impulsive behavior. Risk mitigation included psychiatric hospitalization for observation, medication stabilization although patient refused treatment and would not take medication as well as recommendation to abstain from the use of substances and alcohol. Patient was offered post discharge coordination of substance counseling/treatment but refused. Patient would not communicate his understanding of need to comply with recommendation of abstaining from the use of substances and alcohol and states that he would not take any medication or follow-up for any care post discharge. SSS Data Data Completed and Pending: Pending at discharge Category Date Time Status Urine Culture Sta t Lab 11/28/20 18:00 Received Diagnoses at Discharge Discharge Diagnosis (1) Methamphetamine-induced psychotic disorder: Status: Acute (2) Methamphetamine abuse: Status: Acute Discharge Plan Discharge Patient Disposition: Home Condition: Stable Prescriptions: Continued quetiapine 100 mg Tablet 200 mg PO BEDTIME Qty: 30 RF: 3 Discharge Orders: Discharge Order (Routine); Ordered 11/29/20 Ordered By: Gaby Monroy Referrals: Ariel Bui, DO [Primary Care Provider] - Discharge Diet: Regular Discharge Activity: Resume usual activity Attestations Medical Necessity Statement*: Patient was observed for any worsening psychotic behavior or self-harm behavior, patient refusing to participate in care and refusing to participate in post discharge care to include substance counseling/treatment. 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
[2020-11-29 11:04] VITALS: RESP 16
== END 2020-11-29 11:37 | disposition home or self-care (01) | DRG 897 ==
LOC: ER 19:22 → NP 19:25
PROVIDERS: Admitting Provider Psychiatry & Neurology Psychiatry; Emergency Provider Family Medicine; PCP Family Medicine; Visit Provider Psychiatry & Neurology Psychiatry
DX: F15.250 Other stimulant dependence with stimulant-induced psychotic disorder with delusions (principal); F15.20 Other stimulant dependence, uncomplicated; F17.210 Nicotine dependence, cigarettes, uncomplicated
CPT/HCPCS: 80053; 80306; 80307; 81001; 82550; 85025; 87086; 93005; 99285; J1200; J1630; J2060; J7030

== ENCOUNTER 2021-12-17 10:01 | Inpatient (IN) | payer SELFPAY ==
[2021-12-17] VITALS (10 sets, daily range): BP systolic 109–137; BP diastolic 64–98; PULSE 73–104; RESP 16–20; TEMP 36.6–37.2; O2SAT 94–99; BMI 24.3
[2021-12-17] MEDS: LORazepam 2 mg/mL INJ 1 mL IVP (10:15)
[2021-12-17] MEDS: haloperidol inj 5 mg/mL INJ 1 mL 10 MG IM (10:15)
[2021-12-17] MEDS: diphenhydrAMINE 50 mg/mL SDV 1mL IM (10:15)
--- NOTE | 2021-12-17 10:30 | PC.NURSE ---
PT WITH 4 POLICE OFFICERS, PLACED IN RESTRAINT BED WITH ALL FOUR RESTRAINTS APPLIED. PT HAS SITTER. PT ONLY WEARING JEANS, PT TOO AGGRESSIVE TO CHANGE INTO PSYCH CLOTHING.
--- NOTE | 2021-12-17 10:34 | ED.C_ITS ---
HPI - Psych General: Chief Complaint: Altered Mental Status Stated Complaint: PSYCH EVAL Time Seen by Provider: 12/17/21 10:08 Source: patient and police Mode of arrival: other (Custody of police) Limitations: other History of Present Illness: 41-year-old male brought into the custody of [place] [employer] appears to be under the influence of methamphetamine. Patient is aggressive yelling at emergency room staff and law enforcement. He is restrained in handcuffs on arrival. With the assistance of [facility] security and law enforcement he was transferred a restraint bed as soon as the room was cleared. Unable to get any history from the patient is extremely agitated yelling and screaming complaining of personal insults and difficulties he has had and refuses to speak with us. Law enforcement states he had a meth pipe in his pocket when they found him MD complaint: altered mental status Onset (ago): unknown Duration: constant History of same: Yes Relieving factors: none Exacerbating factors: none Context: recent drug abuse Associated psychiatric symptoms: none Associated symptoms: Reports delusions, homicidal ideation, suicidal ideation and racing thoughts Treatments prior to arrival: physical restraints If self harm: admits thoughts of self harm Review of Systems Const: Denies: fever(s), chills, body aches, change in appetite, fatigue or malaise ENMT: Denies: throat pain, ear or mastoid pain, nasal discharge or nasal congestion Card: Denies: chest pain, edema, dyspnea on exertion or orthopnea Resp: Denies: dyspnea, productive cough or non-productive cough GI: Denies: abdominal pain, nausea, vomiting, hematemesis, coffee ground emesis, diarrhea, constipation, bloating, hematochezia or melena : Denies: flank pain, dysuria, urinary frequency or urinary urgency Skin/Breast: Denies: rash or pruritus Psych: Reports: suicidal ideation and homicidal ideation REPLACED BY [facility] ED PFSH: Medical History (Updated 12/17/21 @ 15:06 by Ayad Salguero DO) Methamphetamine abuse Surgical History (Updated 12/17/21 @ 15:04 by Ayad Salguero DO) No significant past surgical history Social History Smoking and tobacco status: current every day smoker Physical Exam Const: ORIENTATION/CONSCIOUSNESS: Yes awake HENMT: COMMON NORMALS: normocephalic and atraumatic HEAD & SCALP: normocephalic and atraumatic Neck/C-Spine: COMMON NORMALS: no JVD Resp: COMMON NORMALS: normal respiratory effort, No retractions, No use of accessory muscles and clear to auscultation bilaterally AUSCULTATION: clear to auscultation bilaterally Cardio: COMMON NORMALS: no JVD, regular rate, regular rhythm and No murmurs present (Cardio) RATE: regular rate RHYTHM: regular rhythm GI: COMMON NORMALS: Soft to palpation and No hepatosplenomegaly present AUSCULTATION: Yes normoactive bowel sounds PALPATION: Yes Soft to palpation, No Tenderness to palpation present (GI), No Guarding due to palpation present (GI) and Yes No hepatosplenomegaly present Extremity: COMMON NORMALS: normal to inspection, capillary refill normal and no calf tenderness OTHER: Swelling of the left ankle Psych: THOUGHT CONTENT: Yes delusions Course Vital Signs: Vital signs: Vital Signs Temperature 98 F 12/17/21 13:51 Pulse Rate 82 12/17/21 13:51 Respiratory Rate 18 12/17/21 13:51 Blood Pressure 119/76 12/17/21 13:51 Pulse Oximetry 99 12/17/21 13:51 MDM - Psych Medical Decision Making Patient belligerent and difficult to manage very aggressive when he first gets she was given Haldol Benadryl and Ativan Restraint. Discussed with Dr. Senior due to his suicidal ideation will admit. Medical Records I reviewed the patient's medical records. Lab Data I reviewed the patient's lab results. : 12/17/21 10:25 12/17/21 10:25 Radiology Impressions Ankle X-Ray 12/17/21 10:39 IMPRESSION: 1. No acute fracture. Mild soft tissue swelling. Laboratory Results WBC 6.3 10^3/uL (4.0-10.0) 12/17/21 10:25 RBC 4.44 10^6/uL (4.1-5.3) 12/17/21 10:25 Hgb 13.8 g/dL (11.7-16.6) 12/17/21 10:25 Hct 41.9 % (42.0-52.0) L 12/17/21 10:25 MCV 94.4 fl (80-94) H 12/17/21 10:25 MCH 31.1 pg (28.0-34.0) 12/17/21 10:25 MCHC 32.9 g/dL (30.0-36.0) 12/17/21 10:25 RDW 12.7 % (12.1-15.1) 12/17/21 10:25 Plt Count 268 10^3/cmm (130-400) 12/17/21 10:25 MPV 10.6 fL (7.4-10.4) H 12/17/21 10:25 Neut % (Auto) 70.9 % 12/17/21 10:25 Lymph % (Auto) 21.4 % 12/17/21 10:25 [place] % (Auto) 4.5 % 12/17/21 10:25 Eos % (Auto) 2.2 % 12/17/21 10:25 Baso % (Auto) 0.8 % 12/17/21 10:25 Neut # (Auto) 4.45 10^3/uL (1.8-7.7) 12/17/21 10:25 Lymph # (Auto) 1.3 10^3/uL (0.8-4.8) 12/17/21 10:25 [place] # (Auto) 0.3 10^3/uL (0.2-0.9) 12/17/21 10:25 Eos # (Auto) 0.1 10^3/uL (0.0-0.8) 12/17/21 10:25 Baso # (Auto) 0.1 10^3/uL (0.0-0.1) 12/17/21 10:25 Nucleated RBC % (auto) 0 % 12/17/21 10:25 Nucleated RBCs # 0.0 /100WBC 12/17/21 10:25 Sodium 140 mmol/L (136-145) 12/17/21 10:25 Potassium 3.6 mmol/L (3.5-5.1) 12/17/21 10:25 Chloride 106 mmol/L (98-107) 12/17/21 10:25 Carbon Dioxide 18 mmol/L (22-29) L 12/17/21 10:25 Anion Gap 19.6 (5-19) H 12/17/21 10:25 BUN 18 mg/dL (6-20) 12/17/21 10:25 Creatinine 1.0 mg/dL (0.7-1.2) 12/17/21 10:25 GFR Calculation 81.9 mL/min (90-130) L 12/17/21 10:25 Glucose 175 mg/dL (65-115) H 12/17/21 10:25 Calculated Osmolality 296 mOsm/kg (285-295) H 12/17/21 10:25 Calcium 8.9 mg/dL (8.5-10.5) 12/17/21 10:25 Total Bilirubin 0.6 mg/dL (0.15-1.2) 12/17/21 10:25 AST 17 U/L (0-40) 12/17/21 10:25 ALT 18 U/L (0-41) 12/17/21 10:25 Alkaline Phosphatase 84 IU/L (40-130) 12/17/21 10:25 Total Protein 6.8 g/dL (6.6-8.7) 12/17/21 10:25 Albumin 4.4 g/dL (3.5-5.2) 12/17/21 10:25 Globulin 2.4 g/dL (1.3-4.6) 12/17/21 10:25 Salicylates 0.5 mg/dL (3-10) L 12/17/21 10:25 Acetaminophen < 5.0 ug/mL (10-30) L 12/17/21 10:25 Ethyl Alcohol < 10 mg/dL (0-10) 12/17/21 10:25 Discharge Plan Discharge Admit Provider: Oracio Senior Clinical Impression: Psychosis, Methamphetamine abuse, Suicidal ideation Condition: Stable Coding Level of Care Code ED Senior Software Test Engineer for Chg Fwd Exam Comprehensive
--- NOTE | 2021-12-17 10:39 | XR_ITS ---
WS: [id number] Exam: XR ankle LT min 3V* [id number] Date/Time of Exam: 12/17/2021 10:45 AM Reason For Exam: swelling No acute fracture or dislocation. Ankle mortise is well-maintained. Mild soft tissue swelling about t he ankle. XR/XR ankle LT min 3V* [id number] IMPRESSION: 1. No acute fracture. Mild soft tissue swelling.
[2021-12-17 10:41] LABS: Basophils # 0.1 10^3/uL (0.0-0.1); Basophils % 0.8 %; Eosinophils # 0.1 10^3/uL (0.0-0.8); Eosinophils % 2.2 %; Hematocrit 41.9 % (42.0-52.0); Hemoglobin 13.8 g/dL (11.7-16.6); Lymphocytes # 1.3 10^3/uL (0.8-4.8); Lymphocytes % 21.4 %; Mean Corpuscular HGB Conc 32.9 g/dL (30.0-36.0); Mean Corpuscular Hemoglobin 31.1 pg (28.0-34.0); Mean Corpuscular Volume 94.4 fl (80-94); Mean Platelet Volume 10.6 fL (7.4-10.4); Monocytes # 0.3 10^3/uL (0.2-0.9); Monocytes % 4.5 %; Neutrophils # 4.45 10^3/uL (1.8-7.7); Neutrophils % 70.9 %; Nucleated Red Blood Cells % 0 %; Platelet Count 268 10^3/cmm (130-400); Red Blood Count 4.44 10^6/uL (4.1-5.3); Red Cell Distribution Width 12.7 % (12.1-15.1); White Blood Count 6.3 10^3/uL (4.0-10.0)
[2021-12-17 10:58] LABS: Alanine Aminotransferase 18 U/L (0-41); Albumin Level 4.4 g/dL (3.5-5.2); Alkaline Phosphatase 84 IU/L (40-130); Anion Gap 19.6 (5-19); Aspartate Amino Transferase 17 U/L (0-40); Blood Urea Nitrogen 18 mg/dL (6-20); Calcium 8.9 mg/dL (8.5-10.5); Carbon Dioxide 18 mmol/L (22-29); Chloride 106 mmol/L (98-107); Creatinine Clr Calc Pharmacy 95.3731; Globulin 2.4 g/dL (1.3-4.6); Glomerular Filtration Rate 81.9 mL/min (90-130); Glucose 175 mg/dL (65-115); Osmolality Calculated 296 mOsm/kg (285-295); Potassium 3.6 mmol/L (3.5-5.1); Salicylate 0.5 mg/dL (3-10); Sodium 140 mmol/L (136-145); Total Bilirubin 0.6 mg/dL (0.15-1.2); Total Protein 6.8 g/dL (6.6-8.7)
[2021-12-17 11:00] LABS: Acetaminophen < 5.0 ug/mL (10-30); Alcohol Level < 10 mg/dL (0-10)
--- NOTE | 2021-12-17 11:04 | PC.NURSE ---
PT PLACED ON 2L OF O2 FOR SATING IN LOW 80'S. PT WAS STILL SATING IN MID 80'S TO PATIENT O2 RAISED TO 4L. PT ON 4L OF O2 SATING AT 98%.
--- NOTE | 2021-12-17 11:54 | PC.NURSE ---
PT GIVEN BLANKETS AND CHANGED TO 2L OF 02 AND IS SATING AT 99%
--- NOTE | 2021-12-17 12:01 | PC.NURSE ---
PT O2 TURNED OFF AND ALL FOUR RESTRAINTS REMOVED PER DO BULLARD.
--- NOTE | 2021-12-17 12:10 | PC.PHAR ---
PT UNABLE TO VERIFY MEDICATIONS-PT IS SEDATED-NO MEDS PULL UP EXT MED HISTORY
--- NOTE | 2021-12-17 17:23 | PC.NURSE ---
ADMISSION 41-year-old male brought into the custody of [employer] appears to be under the influence of methamphetamine. Patient is aggressive yelling at emergency room staff and law enforcement. He is restrained in handcuffs on arrival. IN ED With the assistance of [facility] security and law enforcement he was transferred a restraint bed as soon as the room was cleared. Unable to get any history from the patient is extremely agitated yelling and screaming complaining of personal insults and difficulties he has had and refuses to speak with us. Law enforcement states he had a meth pipe in his pocket when they found him. UPON ARRIVAL TO NPU- SEDATED, UNABLE TO ANSWER QUESTIONS. SKIN ASSESSMENT COMPLETED WITH NO ISSUES NOTED. PT UNABLE TO SIGN ANY ADMISSION PAPERS. [ End ]
[2021-12-17] MEDS: quetiapine 100 mg Tablet 200 MG PO (21:26)
[2021-12-18 06:00] VITALS: RESP 19
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
--- NOTE | 2021-12-18 10:53 | NPU.GN ---
[facility] Group Topic: Misty Rodriguez General Mood of Group: Patient did not attend group he was sleeping.
[2021-12-18 14:00] VITALS: BP 104/68; PULSE 88; RESP 17; TEMP 36.5; O2SAT 97
[2021-12-18] MEDS: quetiapine 100 mg Tablet 200 MG PO (20:32)
[2021-12-18 20:41] VITALS: BP 110/70; PULSE 70; RESP 18; O2SAT 98
[2021-12-19 05:58] VITALS: BP 116/87; PULSE 70; RESP 18; O2SAT 98
--- NOTE | 2021-12-19 12:35 | P.NPUPN_ITS ---
Subjective NPU Subjective: Patient presents today continuing to have significant irritability and anger about being here as well as significant thought disorder and tangentiality where he says things that you can glean what he means but he can never say it directly. At 1 point during interview he jumped up and was post uring because he was upset with a question that challenged his being here as being related to his addiction and he was angry because people are always saying that. But he then indirectly alluded to the fact that people do not know his situation and then angrily went on a rant about people stealing things from him stealing two homes from him etc. he was not open to a trial of medication. We discussed the fact that him getting out of here sooner rather than later would probably be impacted significantly by the trial of a medication Mental Status Exam MSE Comments: This is a well-nourished, well-developed, white male, with adequate dress, grooming, and eye contact. No abnormal movements except for psychomotor agitation. Mostly uncooperative with exam in moderate to extreme distress. Speech was tangential and increased rate, and volume. Mood not described, but affect was irritable. Thought process, disorganized. Thought content: patient denied any suicidal or homicidal ideation, there were no delusions reported but clear paranoia and persecutory delusions existed. He did not appear to be attending to internal stimuli. Attention and concentration were limited, and memory was unreliable, but none were formally tested. He is alert and oriented to person and place. Insight and judgment are impaired. Impulse control is impaired.?? Vitals/I&O/Wt Last Vital Signs Temp 97.7 F 12/18/21 14:00 Pulse 70 12/19/21 05:58 Resp 18 12/19/21 05:58 BP 116/87 12/19/21 05:58 Pulse Ox 98 12/19/21 05:58 Weight last 48 hrs Weight 72.575 kg Data NPU : 12/17/21 10:25 12/17/21 10:25 A&P Assessment and plan (1) Methamphetamine use disorder, severe: Status: Acute (2) Suicidal ideation: Status: Acute (3) Methamphetamine-induced psychotic disorder: Status: Acute (4) Psychosis: Status: Chronic Plan This is a 41-year-old white male with a long history of psychosis and active add iction including significant amphetamine use disorder severe however he did not get a UDS due to his combativeness and irritability confused and delirious and currently not able to make informed consent. 1.? Continue current medication.? Will continue to offer antipsychotic to assist in decreasing eliminating his psychosis. 2.? Continue every 15 minute checks for safety. 3.? Encourage individual, group and milieu therapies. 4.? Encourage sober living treatment after discharge at the highest level of care to which he is willing to commit. Involuntary Hold Information 96 Hour Hold: 96 Hour Involuntary Admission: Yes 96 Hour Hold Ending Date: 12/23/21 96 Hour Hold Ending Time: 11:00 Attestations NPU Medical Necessity Statement*: Inpatient hospitalization is medically necessary, and the clinically appropriate intervention at this time. We will work with patient to try to get some medications on board, but he is currently resistant. 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
[2021-12-19 14:00] VITALS: BP 130/65; PULSE 70; RESP 17; TEMP 36.7; O2SAT 97
[2021-12-19] MEDS: quetiapine 100 mg Tablet 200 MG PO (20:30)
[2021-12-19] MEDS: acetaminophen 325 mg Tablet 650 MG PO (20:33)
[2021-12-19 20:52] VITALS: BP 128/81; PULSE 81; RESP 20; TEMP 36.6; O2SAT 95
[2021-12-20 02:43] VITALS: BMI 27.6
[2021-12-20 06:00] VITALS: BP 122/84; PULSE 76; RESP 18; TEMP 36.9; O2SAT 97
--- NOTE | 2021-12-20 09:20 | W.PM.NPUPNS ---
Subjective NPU Subjective: Patient presents today with continued irritability and psychosis. He continues to be easily moved to frustration and aggressive speech and seems off and on the edge of exploding. Once again offered antipsychotic to assist in his thought disorder and to help with his aggression but he was very insistent that he should not have to take medication because other people are bad. Mental Status Exam MSE Comments: This is a well-nourished, well-developed, white male, with adequate dress, grooming, and eye contact. No abnormal movements except for psychomotor agitation. Mostly uncooperative with exam in moderate to extreme distress. Speech was tangential and increased rate, and volume. Mood described as fine, but affect was irritable. Thought process, disorganized. Thought content: patient denied any suicidal or homicidal ideation, there were no delusions reported but clear paranoia and persecutory delusions existed. He did not appear to be attending to internal stimuli. Attention and concentration were limited, and memory was unreliable, but none were formally tested. He is alert and oriented to person and place. Insight and judgment are impaired. Impulse control is impaired.?? Vitals/I&O/Wt Last Vital Signs Temp 98.4 F 12/20/21 06:00 Pulse 76 12/20/21 06:00 Resp 18 12/20/21 06:00 BP 122/84 12/20/21 06:00 Pulse Ox 97 12/20/21 06:00 Weight last 48 hrs Weight 84.822 kg Data NPU : 12/17/21 10:25 12/17/21 10:25 A&P Assessment and plan (1) Methamphetamine use disorder, severe: Status: Acute (2) Suicidal ideation: Status: Acute (3) Methamphetamine-induced psychotic disorder: Status: Acute (4) Psychosis: Status: Chronic Plan This is a 41-year-old white male with a long history of psychosis and active addiction including significant amphetamine use disorder severe however he did not get a UDS due to his combativeness and irritability confused and delirious and currently not able to make informed consent. 1.? Continue current medication.? Will continue to offer antipsychotic to assist in decreasing or eliminating his psychosis and irritability 2.? Continue every 15 minute checks for safety. 3.? Encourage individual, group and milieu therapies. 4.? Encourage sober living treatment after discharge at the highest level of care to which he is willing to commit. Involuntary Hold Information 96 Hour Hold: 96 Hour Involuntary Admission: Yes 96 Hour Hold Ending Date: 12/23/21 96 Hour Hold Ending Time: 11:00 Attestations NPU Medical Necessity Statement*: Inpatient hospitalization is medically necessary, and the clinically appropriate intervention at this time. We will work with patient to try to get some medications on board, but he is currently resistant. Likely length of stay 4-6 days. If he does not show significant improvement over the next 48 hours we may need to put him on a 96-hour hold. 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
[2021-12-20 14:00] VITALS: BP 104/70; PULSE 66; RESP 16; TEMP 36.4; O2SAT 97
[2021-12-20] MEDS: ibuprofen 600 mg Tablet PO (20:05)
[2021-12-20] MEDS: trazodone 50 mg Tablet PO (20:05)
[2021-12-20] MEDS: quetiapine 100 mg Tablet 200 MG PO (20:05)
[2021-12-20 20:10] VITALS: RESP 20
[2021-12-21 06:00] VITALS: RESP 18
[2021-12-21 14:00] VITALS: BP 105/74; PULSE 90; RESP 18; TEMP 36.7; O2SAT 95
[2021-12-21] MEDS: OLANZapine 5 mg ODT PO (15:24)
--- NOTE | 2021-12-21 15:57 | PC.NURSE ---
Prn note Patient c/o feeling very anxious. Prn zyprexa given for anxiety/agitation.
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
--- NOTE | 2021-12-21 16:31 | PC.SOCIAL ---
Patient did not attend group therapy.
[2021-12-21] MEDS: nicotine 2 mg Gum BUCCAL (16:49)
[2021-12-21] MEDS: hyDROXYzine 25 mg Capsule 50 MG PO (16:49)
[2021-12-21] MEDS: quetiapine 100 mg Tablet 200 MG PO (20:00)
[2021-12-21] MEDS: trazodone 50 mg Tablet PO (20:03)
[2021-12-21 20:43] VITALS: BP 122/74; PULSE 89; RESP 17; TEMP 37; O2SAT 96
[2021-12-22 06:00] VITALS: RESP 20
--- NOTE | 2021-12-22 08:48 | PC.NURSE ---
PATIENT IN HUFF LOUDLY COMPLAINING THAT THE DOCTOR ISNT HERE YET, AND C/O THAT HE HAS A ROOMMATE TO THE RUBBER TIRE AND TUBES SUPERVISOR. ROOMMATE HEARD PATIENT COMPLAINING, CAME OUT OF ROOM AND STATED YOU TALKING ABOUT ME? AND PROCEEDED TO SWING TO PUNCH PATIENT. PATIENT MADE CONTACT WITH THIS PATIENTS LEFT CHEEK, SECURITY HAD BEEN CALLED WHILE THESE PATIENTS WERE YELLING AT EACH OTHER AND APPROACHED PATIENTS TO REDIRECT TO BACK AWAY FROM ONE ANOTHER, WHILE THIS NURSE WAS ATTEMPTING TO VERBALLY DE-ESCALATE. PATIENTS CALMED AND WERE RE-DIRECTED AWAY FROM EACH OTHER. OTHER PATIENT MOVED TO OTHER SIDE. NO INJURIES NOTED. PHYSICIAN AND DIRECTOR AWARE OF SITUATION.
[2021-12-22] MEDS: LORazepam 1 mg Tablet PO (09:47)
[2021-12-22] MEDS: diphenhydrAMINE 50 mg Capsule PO (09:47)
[2021-12-22] MEDS: haloperidol 5 mg Tablet PO (09:47)
--- NOTE | 2021-12-22 11:28 | PC.NURSE ---
AFTER ALTERCATION WITH OTHER PT THIS MORNING PT VOICED THAT HE NEEDED MEDICATION FOR ANXIETY/AGITATION. GAVE ORDER FOR MEDICATIONS. PO MEDS GIVEN AT 0947. PT HAS BEEN IN BED RESTING SINCE. NO DISTRESS NOTED.
--- NOTE | 2021-12-22 11:35 | PC.NURSE ---
PATIENT BECAME AGITATED IN HUFF TALKING TO STAFF. ROOMMATE CAME OUT OF ROOM AND STATED YOU TALKING ABOUT ME? AND PROCEEDED TO SWING TO PUNCH THIS PATIENT. OTHER PATIENT MADE CONTACT WITH THIS PATIENT'S LEFT CHEEK, SECURITY HAD BEEN CALLED WHILE THESE PATIENTS WERE YELLING AT EACH OTHER AND APPROACHED PATIENTS TO REDIRECT TO BACK AWAY FROM ONE ANOTHER, WHILE STAFF WAS ATTEMPTING TO VERBALLY DE-ESCALATE. PATIENTS CALMED AND WERE RE-DIRECTED AWAY FROM EACH OTHER. OTHER PATIENT MOVED TO OTHER SIDE. NO INJURIES NOTED. PHYSICIAN AND DIRECTOR AWARE OF SITUATION.
--- NOTE | 2021-12-22 12:56 | PC.SOCIAL ---
Patient did not attend group.
[2021-12-22 14:00] VITALS: BP 130/80; PULSE 82; RESP 18; TEMP 36.6; O2SAT 97
--- NOTE | 2021-12-22 18:23 | W.PM.NPUPNS ---
Subjective NPU Subjective: Patient presents today continuing to have struggles with his impulse control and needing to leave by his estimation. He has been resistant to medication and continues to have paranoia and angry outburst. Today he is being verbally aggressive toward this typewriter mechanic but does not seem to get that his ability to discharge is related to his willingness to behave in a way that would be evaluated is safe. He continues to respond what does somewhat expect him to do in the situation. We discussed the risk of having a 21-day hold initiated given concerns about his safety. Mental Status Exam MSE Comments: This is a well-nourished, well-developed, white male, with adequate dress, grooming, and eye contact. No abnormal movements except for psychomotor agitation. Mostly uncooperative with exam in moderate to extreme distress. Speech was tangential and increased rate, and volume. Mood described as a need to go home, affect continued to be irritable. Thought process, disorganized, but a little better. Thought content: patient denied any suicidal or homicidal ideation, there were no delusions reported but clear paranoia and persecutory delusions existed. He did not appear to be attending to internal stimuli. Attention and concentration were limited, and memory was unreliable, but none were formally tested. He is alert and oriented to person and place. Insight and judgment are impaired. Impulse control is impaired.?? Vitals/I&O/Wt Last Vital Signs Temp 98.3 F 12/22/21 20:25 Pulse 74 12/22/21 20:25 Resp 20 H 12/22/21 20:25 BP 148/103 12/22/21 20:25 Pulse Ox 96 12/22/21 20:25 Data NPU : 12/17/21 10:25 12/17/21 10:25 A&P Assessment and plan (1) Methamphetamine use disorder, severe: Status: Acute (2) Suicidal ideation: Status: Acute (3) Methamphetamine-induced psychotic disorder: Status: Acute (4) Psychosis: Status: Chronic Plan This is a 41-year-old white male with a long history of psychosis and active addiction including significant amphetamine use disorder severe however he did not get a UDS due to his combativeness and irritability confused and delirious and currently not able to make informed consent. 1.? Continue current medication.? Will continue to offer antipsychotic to assist in decreasing or eliminating his psychosis and irritability 2.? Continue every 15 minute checks for safety. 3.? Encourage individual, group and milieu therapies. 4.? Encourage sober living treatment after discharge at the highest level of care to which he is willing to commit. 5.? 21-day hold filed. Involuntary Hold Information 96 Hour Hold: 96 Hour Involuntary Admission: Yes 96 Hour Hold Ending Date: 12/23/21 96 Hour Hold Ending Time: 11:00 Attestations NPU Medical Necessity Statement*: Inpatient hospitalization is medically necessary, and the clinically appropriate intervention at this time. We will work with patient to try to get some medications on board, but he is currently resistant. Likely length of stay 5-7 days.? Awaiting 21-day hold hearing.? Coding Level of Care Code Acute Ladle Liner Helper for Jessika Gerardd Diagnoses Methamphetamine use disorder, severe F15.20 Suicidal ideation R45.851 Methamphetamine-induced psychotic disorder F15.959 Psychosis F29
[2021-12-22] MEDS: quetiapine 100 mg Tablet 200 MG PO (20:24)
[2021-12-22 20:25] VITALS: BP 148/103; PULSE 74; RESP 20; TEMP 36.8; O2SAT 96
[2021-12-23 06:00] VITALS: RESP 18
--- NOTE | 2021-12-23 08:55 | PC.NURSE ---
PT OFF UNIT TO ATTEND COURT AT 0855. LEFT IN CUSTODY OF [employer] OFFICERS FOR TRANSPORT TO COURT. PT'S SHOES GIVEN TO PT TO WEAR TO COURT.
[2021-12-23] MEDS: hyDROXYzine 25 mg Capsule 50 MG PO (13:22)
[2021-12-23] MEDS: nicotine 2 mg Gum BUCCAL (13:22)
--- NOTE | 2021-12-23 13:40 | PC.SOCIAL ---
Patient attended the last half of group.
[2021-12-23 13:55] VITALS: BP 133/82; PULSE 88; RESP 18; TEMP 36.7; O2SAT 98
--- NOTE | 2021-12-23 14:18 | W.PM.NPUPNS ---
Subjective NPU Subjective: Patient presents today very angry after the 21-day hold hearing. He continues to have 0 insight into why he is being held and decisions were made. Once again discussed concerns about his aggressiveness and his ability to be safe in community and for the community to be safe. He continues to assert that this commercial insurance underwriter will somehow creating worse problems in his life and taking no responsibility for his aggressiveness. He suggested that this commercial insurance underwriter did believe that he can have properties and be collecting rent and was not open to what was really set in the court room. I explained to him that Dr. Vargas will be here tomorrow and independently assessed the patient and he was open to explain to him why he thinks he should be going sooner rather than later. He still was resistant to establishing a medication that he would be taking daily 20 to the fact that he has started taking as needed medications regularly but we discussed that is different than having something that is scheduled. Mental Status Exam MSE Comments: This is a well-nourished, well-developed, white male, in hospital scrubs with adequate grooming, and eye contact. No abnormal movements except for psychomotor agitation. Mostly uncooperative with exam in moderate to extreme distress. Speech was less tangential and still increased rate, and volume. Mood described as a need to go home, affect continued to be irritable. Thought process, more organized with less moments of disorganization. Thought content: patient denied any suicidal or homicidal ideation, there were no delusions reported but clear paranoia and persecutory delusions existed. He did not appear to be attending to internal stimuli. Attention and concentration were limited, and memory was unreliable, but none were formally tested. He is alert and oriented to person and place. Insight and judgment are impaired. Impulse control is impaired.?? Vitals/I&O/Wt Last Vital Signs Temp 98.1 F 12/23/21 13:55 Pulse 88 12/23/21 13:55 Resp 18 12/23/21 13:55 BP 133/82 12/23/21 13:55 Pulse Ox 98 12/23/21 13:55 Data NPU : 12/17/21 10:25 12/17/21 10:25 A&P Assessment and plan (1) Methamphetamine use disorder, severe: Status: Acute (2) Suicidal ideation: Status: Acute (3) Methamphetamine-induced psychotic disorder: Status: Acute (4) Psychosis: Status: Chronic Plan This is a 41-year-old white male with a long history of psychosis and active addiction including significant amphetamine use disorder severe however he did not get a UDS due to his combativeness and irritability confused and delirious and currently not able to make informed consent. 1.? Continue current medication.? Will continue to offer antipsychotic to assist in decreasing or eliminating his psychosis and irritability 2.? Continue every 15 minute checks for safety. 3.? Encourage individual, group and milieu therapies. 4.? Encourage sober living treatment after discharge at the highest level of care to which he is willing to commit. 5.?? Patient placed on 21-day hold. Involuntary Hold Information 96 Hour Hold: 96 Hour Involuntary Admission: Yes 96 Hour Hold Ending Date: 12/23/21 96 Hour Hold Ending Time: 11:00 Attestations NPU Medical Necessity Statement*: Inpatient hospitalization is medically necessary, and the clinically appropriate intervention at this time. We will work with patient to try to get some medications on board, but he is currently resistant. Likely length of stay 5-7 days.?? Coding Level of Care Code Acute Linderman Operator for Jessika Adrian Diagnoses Methamphetamine use disorder, severe F15.20 Suicidal ideation R45.851 Methamphetamine-induced psychotic disorder F15.959 Psychosis F29
[2021-12-23] MEDS: nicotine 21 mg Patch 1 PATCH TRANSDERMA (14:56)
[2021-12-23] MEDS: OLANZapine 5 mg ODT PO (16:43)
[2021-12-23] MEDS: ibuprofen 600 mg Tablet PO (17:43)
--- NOTE | 2021-12-23 18:37 | PC.NURSE ---
PRN medication Up to nurses station at 1740, request something for generalized pain, rates pain 7/10. Ibuprofen 600 mg given as ordered. Reassessed pain at 1835 and reports some relief. Reports pain 4/10. Offered Tylenol states he will wait to see if Ibuprofen works some more.
[2021-12-23] MEDS: trazodone 50 mg Tablet PO (20:35)
[2021-12-23] MEDS: quetiapine 100 mg Tablet 200 MG PO (20:38)
[2021-12-23] MEDS: acetaminophen 325 mg Tablet 650 MG PO (20:38)
[2021-12-23 20:55] VITALS: BP 136/77; PULSE 98; RESP 17; TEMP 36.7; O2SAT 95
--- NOTE | 2021-12-23 22:00 | PC.NURSE ---
2037 requested tylenol for pain and trazodone for sleep 2137 they were effective.
[2021-12-24 06:00] VITALS: BP 130/74; PULSE 86; RESP 17; TEMP 36.9; O2SAT 95
[2021-12-24] MEDS: nicotine 21 mg Patch 1 PATCH TRANSDERMA (11:21)
[2021-12-24] MEDS: OLANZapine 5 mg ODT PO ×2 (11:22→17:31)
[2021-12-24 14:00] VITALS: BP 120/80; PULSE 80; RESP 17; TEMP 36.6; O2SAT 99
[2021-12-24] MEDS: haloperidol 5 mg Tablet PO (14:16)
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
--- NOTE | 2021-12-24 16:54 | PC.SOCIAL ---
Client did not attend group.
[2021-12-24] MEDS: ibuprofen 600 mg Tablet PO (17:30)
[2021-12-24] MEDS: quetiapine 100 mg Tablet 200 MG PO (20:15)
[2021-12-24 20:42] VITALS: BP 100/68; PULSE 76; RESP 17; TEMP 36.8; O2SAT 95
[2021-12-25] MEDS: hyDROXYzine 25 mg Capsule 50 MG PO (12:03)
[2021-12-25] MEDS: ibuprofen 600 mg Tablet PO (12:04)
[2021-12-25] MEDS: OLANZapine 5 mg ODT PO ×2 (12:04→15:29)
--- NOTE | 2021-12-25 12:32 | W.PM.NPUPNS ---
Subjective NPU Subjective: He was noted in our morning meeting. He has been significantly better ever since the court date. He says that he feels a little better with the Seroquel. He also feels like the Zyprexa helps him. It works better than the Vistaril. He said that he was addicted to Xanax for about 8 years and had a very difficult time coming off of it. He got up to 8 mg daily and it was not doing anything for him. He had a similar experience with a narcotic pain medications. He thinks that he probably does have PTSD. We talked about the treatment of PTSD. He said that he did not do well with Zoloft or Abilify but did not have difficulties with the Lexapro. He agreed to restart that. He mentioned Seroquel I think during the day. Unfortunately we were interrupted by the health care social worker who his neighborhood conservation officer on the phone. He agreed with the plan that the team formulated to let him go home if he continues to maintain his good behavior through Tuesday. Mental Status Exam MSE Comments: This is a well-nourished, well-developed, white male, in hospital scrubs with adequate grooming, and eye contact. No abnormal movements except for psychomotor agitation which is mildly improved. cooperative with exam in moderate distress. Speech was normal rate, and volume. Mood better. Affect was mildly dysphoric.. Thought process, more organized with less moments of disorganization. Thought content: patient denied any suicidal or homicidal ideation, there were no delusions reported but clear paranoia and persecutory delusions existed. He did not appear to be attending to internal stimuli. Attention and concentration were limited, and memory was unreliable, but none were formally tested. He is alert and oriented to person and place. Insight and judgment seem to be improving. Impulse control is improving.?? Cognition: Patient Appearance: Appropriate Level of Consciousness: Drowsy Patient Orientation (long list): Person, Place, Name, Age and Birthday Hallucination Type: None Delusion Description: Not Present Thought Process: Appropriate Affect: Affect Description: Appropriate Behavior: Patient Behavior: Appropriate and Cooperative Speech Pattern: Appropriate and Clear Vitals/I&O/Wt Last Vital Signs Temp 98.2 F 12/24/21 20:42 Pulse 76 12/24/21 20:42 Resp 17 12/24/21 20:42 BP 100/68 12/24/21 20:42 Pulse Ox 95 12/24/21 20:42 Data NPU : 12/17/21 10:25 12/17/21 10:25 A&P Assessment and plan (1) Methamphetamine use disorder, severe: Status: Acute (2) Suicidal ideation: Status: Acute (3) Methamphetamine-induced psychotic disorder: Status: Acute (4) Psychosis: Status: Chronic Plan This is a 41-year-old white male with a long history of psychosis and active addiction including significant amphetamine use disorder severe however he did not get a UDS due to his combativeness and irritability confused and delirious and currently not able to make informed consent. 1.? Continue current medication.? Seroquel 200 mg at bedtime. Will add Lexapro 10 mg every morning. 2.? Continue every 15 minute checks for safety. 3.? Encourage individual, group and milieu therapies. 4.? Encourage sober living treatment after discharge at the highest level of care to which he is willing to commit. 5.?? Patient placed on 21-day hold. Involuntary Hold Information 96 Hour Hold: 96 Hour Involuntary Admission: Yes 96 Hour Hold Ending Date: 12/23/21 96 Hour Hold Ending Time: 11:00 Attestations NPU Medical Necessity Statement*: Inpatient hospitalization is medically necessary and the clinically appropriate intervention at this time. We will initiate medications and make changes as indicated. Coding Level of Care Code Acute Aws Consultant for Jessika Adrian Diagnoses Methamphetamine use disorder, severe F15.20 Suicidal ideation R45.851 Methamphetamine-induced psychotic disorder F15.959 Psychosis F29
[2021-12-25 14:00] VITALS: BP 126/76; PULSE 79; RESP 16; TEMP 36.7; O2SAT 97
--- NOTE | 2021-12-25 14:25 | PC.SOCIAL ---
Patient attended the last part of group and participated in the discussion.
[2021-12-25] MEDS: acetaminophen 325 mg Tablet 650 MG PO (15:31)
[2021-12-25] MEDS: quetiapine 100 mg Tablet 200 MG PO (20:52)
[2021-12-25 21:34] VITALS: BP 111/70; PULSE 67; RESP 16; O2SAT 96
[2021-12-26 05:48] VITALS: BP 132/86; PULSE 85; RESP 18; O2SAT 99
[2021-12-26] MEDS: escitalopram 10 mg Tablet PO (10:28)
[2021-12-26] MEDS: OLANZapine 5 mg ODT PO ×2 (10:30→15:50)
[2021-12-26] MEDS: nicotine 21 mg Patch 1 PATCH TRANSDERMA (10:52)
--- NOTE | 2021-12-26 10:56 | W.PM.NPUPNS ---
Subjective NPU Subjective: He continues to have good behavior. He is pleasant and cooperative. He wants to go home but understands that we have the agreement that he needs to maintain good behavior until Tuesday. He says that he slept well last night. Mental Status Exam MSE Comments: This is a well-nourished, well-developed, white male, in hospital scrubs with adequate grooming, and eye contact. No abnormal movements except for psychomotor agitation which is mildly improved. cooperative with exam in moderate distress. Speech was normal rate, and volume. Mood better. Affect was mildly dysphoric.. Thought process, more organized with less moments of disorganization. Thought content: patient denied any suicidal or homicidal ideation, there were no delusions reported but clear paranoia and persecutory delusions existed. He did not appear to be attending to internal stimuli. Attention and concentration were limited, and memory was unreliable, but none were formally tested. He is alert and oriented to person and place. Insight and judgment seem to be improving. Impulse control is improving.?? Cognition: Patient Appearance: Appropriate Level of Consciousness: Drowsy Patient Orientation (long list): Person, Place, Name, Age, Birthday and Month Hallucination Type: None Delusion Description: Not Present Thought Process: Appropriate Behavior: Speech Pattern: Appropriate Vitals/I&O/Wt Last Vital Signs Temp 98.0 F 12/25/21 14:00 Pulse 85 12/26/21 05:48 Resp 18 12/26/21 05:48 BP 132/86 12/26/21 05:48 Pulse Ox 99 12/26/21 05:48 Data NPU : 12/17/21 10:25 12/17/21 10:25 A&P Assessment and plan (1) Methamphetamine use disorder, severe: Status: Acute (2) Suicidal ideation: Status: Acute (3) Methamphetamine-induced psychotic disorder: Status: Acute (4) Psychosis: Status: Chronic Plan This is a 41-year-old white male with a long history of psychosis and active addiction including significant amphetamine use disorder severe however he did not get a UDS due to his combativeness and irritability confused and delirious and currently not able to make informed consent. 1.? Continue current medication.? Seroquel 200 mg at bedtime. Will add Lexapro 10 mg every morning. 2.? Continue every 15 minute checks for safety. 3.? Encourage individual, group and milieu therapies. 4.? Encourage sober living treatment after discharge at the highest level of care to which he is willing to commit. 5.?? Patient placed on 21-day hold. Involuntary Hold Information 96 Hour Hold: 96 Hour Involuntary Admission: Yes 96 Hour Hold Ending Date: 12/23/21 96 Hour Hold Ending Time: 11:00 Attestations NPU Medical Necessity Statement*: Inpatient hospitalization is medically necessary and the clinically appropriate intervention at this time. We will initiate medications and make changes as indicated. Coding Level of Care Code Acute [place] O[place] Controller for Jessika Adrian Diagnoses Methamphetamine use disorder, severe F15.20 Suicidal ideation R45.851 Methamphetamine-induced psychotic disorder F15.959 Psychosis F29
[2021-12-26] MEDS: hyDROXYzine 25 mg Capsule 50 MG PO (12:21)
[2021-12-26] MEDS: ibuprofen 600 mg Tablet PO ×2 (13:53→20:21)
[2021-12-26 14:00] VITALS: BP 129/83; PULSE 85; RESP 17; TEMP 36.6; O2SAT 96
--- NOTE | 2021-12-26 14:30 | PC.NURSE ---
Prn note Patient noted to c/o feeling anxious, Haldol administered. He stated he thinks it is starting to help.
--- NOTE | 2021-12-26 15:50 | PC.NURSE ---
Patient at nurses station stating he feels agitated. Zyprexa 5 mg sl given for this.
[2021-12-26 19:42] VITALS: BP 108/62; PULSE 76; RESP 16; TEMP 36.7; O2SAT 95
[2021-12-26] MEDS: quetiapine 100 mg Tablet 200 MG PO (20:21)
[2021-12-26] MEDS: trazodone 50 mg Tablet PO (20:21)
--- NOTE | 2021-12-26 22:25 | PC.NURSE ---
PATIENT HAS BEEN CALM AND COOPERATIVE THIS EVENING. REQUESTED TRAZADONE TO HELP HIM SLEEP AND IBUPROFEN FOR GENERALIZED BODY PAIN.
[2021-12-27 06:00] VITALS: BP 105/68; PULSE 78; RESP 18; TEMP 36.5; O2SAT 95
[2021-12-27] MEDS: escitalopram 10 mg Tablet PO (10:36)
[2021-12-27 14:00] VITALS: BP 121/66; PULSE 93; RESP 18; TEMP 36.9; O2SAT 97
[2021-12-27] MEDS: nicotine 21 mg Patch 1 PATCH TRANSDERMA (14:02)
[2021-12-27] MEDS: hyDROXYzine 25 mg Capsule 50 MG PO ×2 (14:02→17:20)
--- NOTE | 2021-12-27 14:03 | PC.NURSE ---
PRN VISTARIL 50 MG GIVEN PO PER PT C/O ANXIETY
--- NOTE | 2021-12-27 14:35 | P.NPUPN_ITS ---
Subjective NPU Subjective: He continues to do well. He has maintained his composure and has been generally pleasant and cooperative. He continues to be agreeable to discharge tomorrow but he would rather leave today. Mental Status Exam MSE Comments: This is a well-nourished, well-developed, white male, in hospital scrubs with adequate grooming, and eye contact. No abnormal movements except for psychomotor agitation which is mildly improved. cooperative with exam in moderate distress. Speech was normal rate, and volume. Mood better. Affect was mildly dysphoric.. Thought process, more organized with less moments of di sorganization. Thought content: patient denied any suicidal or homicidal ideation, there were no delusions reported but clear paranoia and persecutory delusions existed. He did not appear to be attending to internal stimuli. Attention and concentration were limited, and memory was unreliable, but none were formally tested. He is alert and oriented to person and place. Insight and judgment seem to be improving. Impulse control is improving.?? Cognition: Patient Appearance: Appropriate Level of Consciousness: Drowsy Patient Orientation (long list): Person, Place, Name, Age, Birthday and Month Hallucination Type: None Delusion Description: Not Present Thought Process: Appropriate Affect: Affect Description: Anxious Behavior: Patient Behavior: Cooperative Speech Pattern: Clear Vitals/I&O/Wt Last Vital Signs Temp 98.4 F 12/27/21 14:00 Pulse 93 12/27/21 14:00 Resp 18 12/27/21 14:00 BP 121/66 12/27/21 14:00 Pulse Ox 97 12/27/21 14:00 Data NPU : 12/17/21 10:25 12/17/21 10:25 A&P Assessment and plan (1) Methamphetamine use disorder, severe: Status: Acute (2) Suicidal ideation: Status: Acute (3) Methamphetamine-induced psychotic disorder: Status: Acute (4) Psychosis: Status: Chronic Plan This is a 41-year-old white male with a long history of psychosis and active addiction including significant amphetamine use disorder severe however he did not get a UDS due to his combativeness and irritability confused and delirious and currently not able to make informed consent. 1.? Continue current medication.? Seroquel 200 mg at bedtime. Will add Lexapro 10 mg every morning. 2.? Continue every 15 minute checks for safety. 3.? Encourage individual, group and milieu therapies. 4.? Encourage sober living treatment after discharge at the highest level of care to which he is willing to commit. 5.?? Patient placed on 21-day hold. Involuntary Hold Information 96 Hour Hold: 96 Hour Involuntary Admission: Yes 96 Hour Hold Ending Date: 12/23/21 96 Hour Hold Ending Time: 11:00 Attestations NPU Medical Necessity Statement*: Inpatient hospitalization is medically necessary and the clinically appropriate intervention at this time. We will initiate medications and make changes as indicated. Coding Level of Care Code Acute Mathematician Research for Jessika Adrian Diagnoses Methamphetamine use disorder, severe F15.20 Suicidal ideation R45.851 Methamphetamine-induced psychotic disorder F15.959 Psychosis F29
[2021-12-27] MEDS: OLANZapine 5 mg ODT PO (15:08)
--- NOTE | 2021-12-27 15:09 | PC.NURSE ---
PRN ZYPREXA ZYDIS 5 MG GIVEN PO PER PT C/O AGITATION. PT STATED HE WANTED THE PILL THAT DISSOLVES ON TONGUE
[2021-12-27] MEDS: trazodone 50 mg Tablet PO (20:20)
[2021-12-27] MEDS: quetiapine 100 mg Tablet 200 MG PO (20:20)
[2021-12-27] MEDS: ibuprofen 600 mg Tablet PO (20:20)
[2021-12-27 20:23] VITALS: BP 118/77; PULSE 81; RESP 16; TEMP 36.8; O2SAT 97
[2021-12-28 06:00] VITALS: RESP 17
--- NOTE | 2021-12-28 07:42 | P.NPUDS_ITS ---
Diagnoses at Discharge Discharge Diagnosis (1) Methamphetamine use disorder, severe: Status: Acute (2) Suicidal ideation: Status: Acute (3) Methamphetamine-induced psychotic disorder: Status: Acute (4) Psychosis: Status: Chronic Permanent problem details: Psychosis w severe cognitive distortion and deficit in reality testing. Reason for Visit Reason for Visit: PSYCH EVAL Brief History: [facility] [address] [address] History & Physical Report Signed Patient: Jay Kramer MR#: [id number] : 1980 Age/Sex: 41 / M ADM Date: 12/17/21 Loc: [facility]? Room/Bed: 152-2 History of Present Illness Jay Kramer is a 41 year old male who presented to the emergency department with the following report: 41-year-old male brought into the custody of [employer] [employer] appears to be under the influence of methamphetamine.? Patient is aggressive yelling at emergency room staff and law enforcement.? He is restrained in handcuffs on arrival.? With the assistance of [facility] security and law enforcement he was transferred a restraint bed as soon as the room was cleared.? Unable to get any history from the patient is extremely agitated yelling and screaming complaining of personal insults and difficulties he has had and refuses to speak with us. Law enforcement states he had a meth pipe in his pocket when they found him MD complaint: altered mental status Onset (ago): unknown Duration: constant History of same: Yes Relieving factors: none Exacerbating factors: none Context: recent drug abuse Associated psychiatric symptoms: none Associated symptoms: Reports delusions, homicidal ideation, suicidal ideation and racing thoughts Treatments prior to arrival: physical restraints If self harm: admits thoughts of self harm He was admitted to the neuropsychiatric unit for definitive treatment of those issues.? Patient is known to the journalists and other writers through numerous inpatient stays most recently seen by this journalists and other writers around March 2020 but seen for a short stay summary last year.? Patient presents today at hostile psychotic historian basically rambling about people taking things but in a tangential way where he does not specifically state any disturbances at in a sometimes confusing way.? But sometimes never completely random or things that this presents but the context and meaning would likely unknown even to him.? At 1 point I believe he said something about his letter showing him my penis.? Otherwise he had mostly paranoid ranting this impression Kimberly statements.? He tangentially was alluding to the fact that he did not need to be hospitalized on a 96-hour hold and should be allowed to leave when this journalists and other writers identified that he was not well enough mentally to be discharged or taken off a 96-hour hold he got somewhat upset and continued that he was granted.? An excerpt from his last? hospitalization is included below for context. Hospital Course Hospital Course He slowly acclimated to the individual, group and milieu therapies provided. He was started on Seroquel 200 mg at bedtime and Lexapro 10 mg daily was added for anxiety. He had difficulty maintaining his behavior until the 21-day commitment was approved and then he was much better. He tolerated these doses and showed steady improvement during his stay. He was able to contract for safety outside hospital prior to discharge. During the hospitalization, patient had routine laboratory studies which were within normal limits except for few outliers. Additionally there was a general medical evaluation which was also within normal limits and revealed no new acute processes. Discharge Summary: At the time of discharge, lethality was denied and psychosis was resolving. Mood and anxiety were well managed. Patient endorsed a plan to follow-up with the aftercare recommendations of the treatment team. Patient was evaluated and deemed to be absent credible lethality, and had achieved the maximum benefit from an inpatient hospitalization, so was discharged. Involuntary Hold Information 96 Hour Hold: 96 Hour Involuntary Admission: Yes 96 Hour Hold Ending Date: 12/23/21 96 Hour Hold Ending Time: 11:00 Mental Status Exam MSE Comments: This is a well-nourished, well-developed, white male, in hospital scrubs with adequate grooming, and eye contact. No abnormal movements except for psychomotor agitation which is mildly improved. cooperative with exam in moderate distress. Speech was normal rate, and volume. Mood better. Affect was mildly dysphoric.. Thought process, more organized with less moments of disorganization. Thought content: patient denied any suicidal or homicidal idea tion, there were no delusions or paranoia reported. He did not appear to be attending to internal stimuli. Attention and concentration were limited, and memory was unreliable, but none were formally tested. He is alert and oriented to person and place. Insight and judgment seem to be improving. Impulse control is improving.?? Cognition: Patient Appearance: Appropriate Level of Consciousness: Drowsy Patient Orientation (long list): Person, Place, Name, Age, Birthday and Month Hallucination Type: None Delusion Description: Not Present Thought Process: Appropriate Affect: Affect Description: Anxious Behavior: Patient Behavior: Cooperative Speech Pattern: Clear Discharge Data Studies Completed and Pending: Completed Studies During Hospitalization Category Date Time Status XR ankle LT min 3 V* [id number] Stat Exams 12/17/21 10:39 Completed Pending at discharge Category Date Time Status Drug Screen, Urin e Stat Lab 12/17/21 10:26 Uncollected Urinalysis Stat Lab 12/17/21 10:26 Uncollected Radiology Impressions Ankle X-Ray 12/17/21 10:39 IMPRESSION: 1. No acute fracture. Mild soft tissue swelling. Laboratory Results WBC 6.3 10^3/uL (4.0- 10.0) 12/17/21 10:25 RBC 4.44 10^6/uL (4.1 -5.3) 12/17/21 10:25 Hgb 13.8 g/dL (11.7-1 6.6) 12/17/21 10:25 Hct 41.9 % (42.0-52.0 ) L 12/17/21 10:25 MCV 94.4 fl (80-94) H 12/17/21 10:25 MCH 31.1 pg (28.0-34. 0) 12/17/21 10:25 MCHC 32.9 g/dL (30.0-3 6.0) 12/17/21 10:25 RDW 12.7 % (12.1-15.1 ) 12/17/21 10:25 Plt Count 268 10^3/cmm (130 -400) 12/17/21 10:25 MPV 10.6 fL (7.4-10.4 ) H 12/17/21 10:25 Neut % (Auto) 70.9 % 12/17/21 10:25 Lymph % (Auto) 21.4 % 12/17/21 10:25 [place] % (Auto) 4.5 % 12/17/21 10:25 Eos % (Auto) 2.2 % 12/17/21 10:25 Baso % (Auto) 0.8 % 12/17/21 10:25 Neut # (Auto) 4.45 10^3/uL (1.8 -7.7) 12/17/21 10:25 Lymph # (Auto) 1.3 10^3/uL (0.8- 4.8) 12/17/21 10:25 [place] # (Auto) 0.3 10^3/uL (0.2- 0.9) 12/17/21 10:25 Eos # (Auto) 0.1 10^3/uL (0.0- 0.8) 12/17/21 10:25 Baso # (Auto) 0.1 10^3/uL (0.0- 0.1) 12/17/21 10:25 Nucleated RBC % (a uto) 0 % 12/17/21 10:25 Nucleated RBCs # 0.0 /100WBC 12/17/21 10:25 Sodium 140 mmol/L (136-1 45) 12/17/21 10:25 Potassium 3.6 mmol/L (3.5-5 .1) 12/17/21 10:25 Chloride 106 mmol/L (98-10 7) 12/17/21 10:25 Carbon Dioxide 18 mmol/L (22-29) L 12/17/21 10:25 Anion Gap 19.6 (5-19) H 12/17/21 10:25 BUN 18 mg/dL (6-20) 12/17/21 10:25 Creatinine 1.0 mg/dL (0.7-1. 2) 12/17/21 10:25 GFR Calculation 81.9 mL/min (90-1 30) L 12/17/21 10:25 Glucose 175 mg/dL (65-115 ) H 12/17/21 10:25 Calculated Osmolal ity 296 mOsm/kg (285- 295) H 12/17/21 10:25 Calcium 8.9 mg/dL (8.5-10 .5) 12/17/21 10:25 Total Bilirubin 0.6 mg/dL (0.15-1 .2) 12/17/21 10:25 AST 17 U/L (0-40) 12/17/21 10:25 ALT 18 U/L (0-41) 12/17/21 10:25 Alkaline Phosphata se 84 IU/L (40-130) 12/17/21 10:25 Total Protein 6.8 g/dL (6.6-8.7 ) 12/17/21 10:25 Albumin 4.4 g/dL (3.5-5.2 ) 12/17/21 10:25 Globulin 2.4 g/dL (1.3-4.6 ) 12/17/21 10:25 Salicylates 0.5 mg/dL (3-10) L 12/17/21 10:25 Acetaminophen < 5.0 ug/mL (10-3 0) L 12/17/21 10:25 Ethyl Alcohol < 10 mg/dL (0-10) 12/17/21 10:25 Vitals: Last Vital Signs Temp 98.3 F 12/27/21 20:23 Pulse 81 12/27/21 20:23 Resp 17 12/28/21 06:00 BP 118/77 12/27/21 20:23 Pulse Ox 97 12/27/21 20:23 Discharge Plan Discharge Patient Disposition: Home Condition: Stable Prescriptions: New quetiapine 100 mg Tablet 200 mg PO BEDTIME 30 Days Qty: 60 1RF escitalopram oxalate 20 mg tablet 20 mg PO DAILY 30 Days Qty: 30 1RF olanzapine 5 mg Tablet 5 mg PO DAILY PRN (Reason: Anxiety) 30 Days Qty: 30 1RF Discharge Orders: Discharge Order (Routine); Ordered 12/28/21 Ordered By: Sammy Vargas Referrals: [facility] [Other] (Walk in Tuesday through Tuesday 7:30 am to 3:00 pm. ) Ariel Bui, [Primary Care Provider] - Discharge Diet: Regular Discharge Activity: Resume usual activity Patient Instructions: Opioid Safety Discharge Attestations NPU Time Spent in Discharge Care*: less than 30 min Specific Discharge Activities: Specific discharge activities: educating patient, discussing with housing case manager/social workers/dc planners, documenting/other paperwork and evaluating patient/reviewing data Status at Discharge: Cognitive status at discharge: cognitively intact , Behavioral status at discharge: can be uncooperative , Coding Level of Care Code Acute Chg FW DC note Diagnoses Methamphetamine use disorder, severe F15.20 Suicidal ideation R45.851 Methamphetamine-induced psychotic disorder F15.959 Psychosis F29
[2021-12-28] MEDS: escitalopram 10 mg Tablet 20 MG PO (08:18)
[2021-12-28 08:24] VITALS: RESP 17
== END 2021-12-28 08:45 | disposition home or self-care (01) | DRG 897 ==
LOC: ER 13:05 → NP 13:26
PROVIDERS: Admitting Provider Psychiatry & Neurology Psychiatry; Emergency Provider Family Medicine; PCP Family Medicine; Visit Provider Psychiatry & Neurology Psychiatry
DX: F15.159 Other stimulant abuse with stimulant-induced psychotic disorder, unspecified (principal); R45.851 Suicidal ideations; F15.10 Other stimulant abuse, uncomplicated; F17.210 Nicotine dependence, cigarettes, uncomplicated
CPT/HCPCS: 73610; 80053; 80307; 85025; 96372; 97150; 97165; 99285; J1200; J1630; J2060; Q0163

== ENCOUNTER 2022-12-01 16:55 | Emergency (ER) | payer SELFPAY ==
[2022-12-01 16:55] VITALS: BP 125/105; PULSE 126; RESP 26; O2SAT 96
[2022-12-01] MEDS: ziprasidone 20 mg/mL SDV 10 MG IM (16:58)
[2022-12-01] MEDS: LORazepam 2 mg/mL INJ 1 mL IM (16:58)
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
[2022-12-01 17:00] VITALS: BMI 23.6
[2022-12-01 17:10] VITALS: BP 122/78; PULSE 116; RESP 20; O2SAT 97
--- NOTE | 2022-12-01 17:21 | ED.C_ITS ---
Documented by User: Ayad Salguero DO 12/02/22 06:51 HPI - Psych General: Chief Complaint: Psychiatric Symptoms Stated Complaint: PSYCH Time Seen by Provider: 12/01/22 16:59 Source: patient and police Mode of arrival: other (Law enforcement) History of Present Illness: 42-year-old male presents emergency room custody of the [facility] department. Family had filled out an affidavit regarding his recurrent drug use and behaviors towards family. Patient tells me he recently was in halfway and was released 4 days ago he is very upset because he states that his family had stolen Percocet and Xanax from him he appears to be under the influence. He tells me that he was taking a shower when long force and removed him from the home on the 96-hour hold warrant. He denies any suicidal or homicidal ideation. Patient is very angry and aggressive. When he arrived here he was in restraints he continues to be verbally and physically aggressive and is kept in the restraint bed he did consent to allowing us to give him medications to help him with anxiety he was given Geodon and Ativan shortly after arrival. Was then able to get much more history from him. He expresses paranoid ideas about everyone stealing from him and trying to manipulate him but will not give any more information beyond that. Relieving factors: none Exacerbating factors: none Context: recent drug abuse (Suspected based on presentation) Associated symptoms: Reports racing thoughts; Deny auditory hallucinations or visual hallucinations Treatments prior to arrival: placed on mental health hold Review of Systems General: Reports: Other (Limited review of systems because of patient's ag gressive behavior and post) Const: Denies: fever(s) or chills Card: Denies: chest pain Resp: Reports: non-productive cough GI: Denies: abdominal pain Psych: Denies: visual hallucinations or auditory hallucinations PFS ED PFSH: Medical History Methamphetamine abuse Surgical History No significant past surgical history Social History Smoking and tobacco status: current every day smoker Physical Exam Const: ORIENTATION/CONSCIOUSNESS: Yes awake HENMT: COMMON NORMALS: normocephalic, atraumatic and hearing grossly normal bilaterally HEAD & SCALP: normocephalic and atraumatic Resp: COMMON NORMALS: normal respiratory effort, No retractions, No use of accessory muscles and clear to auscultation bilaterally AUSCULTATION: clear to auscultation bilaterally Cardio: COMMON NORMALS: regular rate, regular rhythm and No murmurs present (Cardio) RATE: regular rate RHYTHM: regular rhythm GI: COMMON NORMALS: Soft to palpation and No hepatosplenomegaly present AUSCULTATION: Yes normoactive bowel sounds PALPATION: Yes Soft to palpation, No Tenderness to palpation present (GI), No Guarding due to palpation present (GI) and Yes No hepatosplenomegaly present Extremity: COMMON NORMALS: normal to inspection, capillary refill normal, no c lubbing, cyanosis or edema, no calf tenderness and no pedal edema Skin: COMMON NORMALS: no rashes or lesions noted GENERAL SKIN EXAM: no rashes or lesions noted Face to Face: Restrn/Seclusion Events leading up to initiation: Verbalizing threat to self or others and Combative/Striking out at staff or others Patient reaction since intervention applied: Behaviors/threats have lessened, but still present Need for restraint or seclusion is: Continued Attending notified: Yes Course Vital Signs: Vital signs: Vital Signs Pulse Rate 100 12/02/22 05:29 Respiratory Rate 18 12/02/22 05:29 Blood Pressure 98/60 12/02/22 05:29 Pulse Oximetry 96 12/02/22 05:29 Oxygen Delivery Me thod 12/02/22 02:00 [facility] - Psych Medical Decision Making Patient is aggressive and difficult to deal with and appears to be under the influence of methamphetamines. 96-hour hold reviewed from the court. The affidavits do not explicitly state he had any homicidal or suicidal ideation. The patient denies both when asked specifically. Although he is very aggressive verbally and attempts to be physically but because of restraints he cannot harm anyone at the moment. He consented to receiving Geodon and Ativan. He normally does get atypical antipsychotics. Medications given were very sedating. I talked to Dr. River who is on-call for psychiatry. He will see the patient la ter and evaluate. Care signed out to Dr. Cadena at change of shift. See final notes for diagnosis and disposition. Patient presents here after methamphetamine use she is now awake and alert and able answer all my questions appropriately after he has been here for a while he is not suicidal or homicidal I did have patient evaluated by psychiatrist Dr. Senior over telemetry psych who agrees patient is not suicidal or homicidal we will discharge patient at this time. Lab Data 12/01/22 17:51 12/01/22 17:51 Laboratory Results WBC 7.2 10^3/uL (4.0-10.0) 12/01/22 17:51 RBC 4.06 10^6/uL (4.1-5.3) L 12/01/22 17:51 Hgb 12.3 g/dL (11.7-16.6) 12/01/22 17:51 Hct 36.7 % (42.0-52.0) L 12/01/22 17:51 MCV 90.4 fl (80-94) 12/01/22 17:51 MCH 30.3 pg (28.0-34.0) 12/01/22 17:51 MCHC 33.5 g/dL (30.0-36.0) 12/01/22 17:51 RDW 12.7 % (12.1-15.1) 12/01/22 17:51 Plt Count 218 10^3/cmm (130-400) 12/01/22 17:51 MPV 10.5 fL (7.4-10.4) H 12/01/22 17:51 Neut % (Auto) 68.8 % 12/01/22 17:51 Lymph % (Auto) 22.4 % 12/01/22 17:51 [place] % (Auto) 5.1 % 12/01/22 17:51 Eos % (Auto) 2.8 % 12/01/22 17:51 Baso % (Auto) 0.6 % 12/01/22 17:51 Neut # (Auto) 4.97 10^3/uL (1.8-7.7) 12/01/22 17:51 Lymph # (Auto) 1.6 10^3/uL (0.8-4.8) 12/01/22 17:51 [place] # (Auto) 0.4 10^3/uL (0.2-0.9) 12/01/22 17:51 Eos # (Auto) 0.2 10^3/uL (0.0-0.8) 12/01/22 17:51 Baso # (Auto) 0.0 10^3/uL (0.0-0.1) 12/01/22 17:51 Nucleated RBC % (auto) 0 % 12/01/22 17:51 Nucleated RBCs # 0.0 /100WBC 12/01/22 17:51 Sodium 144 mmol/L (136-145) 12/01/22 17:51 Potassium 3.1 mmol/L (3.5-5.1) L 12/01/22 17:51 Chloride 106 mmol/L (98-107) 12/01/22 17:51 Carbon Dioxide 25 mmol/L (22-29) 12/01/22 17:51 Anion Gap 16.1 (5-19) 12/01/22 17:51 BUN 18 mg/dL (6-20) 12/01/22 17:51 Creatinine 0.8 mg/dL (0.7-1.2) 12/01/22 17:51 GFR Calculation 105.5 mL/min (90-130) 12/01/22 17:51 Glucose 111 mg/dL (65-115) 12/01/22 17:51 Calculated Osmolality 301 mOsm/kg (285-295) H 12/01/22 17:51 Calcium 8.8 mg/dL (8.5-10.5) 12/01/22 17:51 Total Bilirubin 0.3 mg/dL (0.15-1.2) 12/01/22 17:51 AST 13 U/L (0-40) 12/01/22 17:51 ALT 11 U/L (0-41) 12/01/22 17:51 Alkaline Phosphatase 93 U/L (40-130) 12/01/22 17:51 Total Protein 6.5 g/dL (6.6-8.7) L 12/01/22 17:51 Albumin 3.8 g/dL (3.5-5.2) 12/01/22 17:51 Globulin 2.7 g/dL (1.3-4.6) 12/01/22 17:51 Urine Color Yellow (Yellow) 12/01/22 22:00 Urine Appearance Clear (CLEAR) 12/01/22 22:00 Urine pH 5 (5-7) 12/01/22 22:00 Ur Specific Eden 1.020 (1.005-1.030) 12/01/22 22:00 Urine Protein Neg (Negative) 12/01/22 22:00 Urine Glucose (UA) Norm (Normal) 12/01/22 22:00 Urine Ketones Negative (Negative) 12/01/22 22:00 Urine Blood Neg (Negative) 12/01/22 22:00 Urine Nitrate Negative (Negative) 12/01/22 22:00 Urine Bilirubin Neg (Negative) 12/01/22 22:00 Urine Urobilinogen Norm mg/dL (Negative) 12/01/22 22:00 Ur Leukocyte Esterase Negative (Negative) 12/01/22 22:00 Salicylates < 0.3 mg/dL (3-10) L 12/01/22 17:51 Urine Opiates Screen Negative ng/mL (Negative) 12/01/22 22:00 Acetaminophen < 5.0 ug/mL (10-30) L 12/01/22 17:51 Ur Barbiturates Screen Negative ng/mL (Negative) 12/01/22 22:00 Ur Phencyclidine Scrn Negative ng/mL (Negative) 12/01/22 22:00 Ur Amphetamines Screen Positive ng/mL (Negative) H 12/01/22 22:00 U Benzodiazepines Scrn Positive ng/mL (Negative) H 12/01/22 22:00 Urine Cocaine Screen Negative ng/mL (Negative) 12/01/22 22:00 U Marijuana (THC) Screen Negative ng/mL (Negative) 12/01/22 22:00 Ethyl Alcohol < 10 mg/dL (0-10) 12/01/22 17:51 Discharge Plan Discharge Patient Disposition: Home Clinical Impression: Methamphetamine abuse Condition: Stable Prescriptions: No Action quetiapine 100 mg Tablet 200 mg PO BEDTIME 30 Days Qty: 60 1RF escitalopram oxalate 20 mg tablet 20 mg PO DAILY 30 Days Qty: 30 1RF olanzapine 5 mg Tablet 5 mg PO DAILY PRN (Reason: Anxiety) 30 Days Qty: 30 1RF Discharge Orders: Discharge ED (Routine); Ordered 12/02/22 Ordered By: Praveena Cadena Referrals: Ariel Bui, [Primary Care Provider] - Discharge Diet: Advance as tolerated Discharge Activity: Resume usual activity Patient Instructions: Methamphetamine Abuse Coding Level of Care Code ED Engineering Project Manager for Elsig Fwd Documented by User: Praveena Cadena MD 12/02/22 05:37 HPI - Psych General: Chief Complaint: Psychiatric Symptoms Stated Complaint: PSYCH Time Seen by Provider: 12/01/22 16:59 PFSH ED PFSH: Medical History Methamphetamine abuse Surgical History No significant past surgical history Social History Smoking and tobacco status: current every day smoker Course Vital Signs: Vital signs: Vital Signs Pulse Rate 100 12/02/22 05:29 Respiratory Rate 18 12/02/22 05:29 Blood Pressure 98/60 12/02/22 05:29 Pulse Oximetry 96 12/02/22 05:29 Oxygen Delivery Me thod 12/02/22 02:00 MDM - Psych Medical Decision Making Patient presents here after methamphetamine use she is now awake and alert and able answer all my questions appropriately after he has been here for a while he is not suicidal or homicidal I did have patient evaluated by psychiatrist Dr. Senior over telemetry psych who agrees patient is not suicidal or homicidal we will discharge patient at this time. Lab Data 12/01/22 17:51 12/01/22 17:51 Laboratory Results WBC 7.2 10^3/uL (4.0-10.0) 12/01/22 17:51 RBC 4.06 10^6/uL (4.1-5.3) L 12/01/22 17:51 Hgb 12.3 g/dL (11.7-16.6) 12/01/22 17:51 Hct 36.7 % (42.0-52.0) L 12/01/22 17:51 MCV 90.4 fl (80-94) 12/01/22 17:51 MCH 30.3 pg (28.0-34.0) 12/01/22 17:51 MCHC 33.5 g/dL (30.0-36.0) 12/01/22 17:51 RDW 12.7 % (12.1-15.1) 12/01/22 17:51 Plt Count 218 10^3/cmm (130-400) 12/01/22 17:51 MPV 10.5 fL (7.4-10.4) H 12/01/22 17:51 Neut % (Auto) 68.8 % 12/01/22 17:51 Lymph % (Auto) 22.4 % 12/01/22 17:51 [place] % (Auto) 5.1 % 12/01/22 17:51 Eos % (Auto) 2.8 % 12/01/22 17:51 Baso % (Auto) 0.6 % 12/01/22 17:51 Neut # (Auto) 4.97 10^3/uL (1.8-7.7) 12/01/22 17:51 Lymph # (Auto) 1.6 10^3/uL (0.8-4.8) 12/01/22 17:51 [place] # (Auto) 0.4 10^3/uL (0.2-0.9) 12/01/22 17:51 Eos # (Auto) 0.2 10^3/uL (0.0-0.8) 12/01/22 17:51 Baso # (Auto) 0.0 10^3/uL (0.0-0.1) 12/01/22 17:51 Nucleated RBC % (auto) 0 % 12/01/22 17:51 Nucleated RBCs # 0.0 /100WBC 12/01/22 17:51 Sodium 144 mmol/L (136-145) 12/01/22 17:51 Potassium 3.1 mmol/L (3.5-5.1) L 12/01/22 17:51 Chloride 106 mmol/L (98-107) 12/01/22 17:51 Carbon Dioxide 25 mmol/L (22-29) 12/01/22 17:51 Anion Gap 16.1 (5-19) 12/01/22 17:51 BUN 18 mg/dL (6-20) 12/01/22 17:51 Creatinine 0.8 mg/dL (0.7-1.2) 12/01/22 17:51 GFR Calculation 105.5 mL/min (90-130) 12/01/22 17:51 Glucose 111 mg/dL (65-115) 12/01/22 17:51 Calculated Osmolality 301 mOsm/kg (285-295) H 12/01/22 17:51 Calcium 8.8 mg/dL (8.5-10.5) 12/01/22 17:51 Total Bilirubin 0.3 mg/dL (0.15-1.2) 12/01/22 17:51 AST 13 U/L (0-40) 12/01/22 17:51 ALT 11 U/L (0-41) 12/01/22 17:51 Alkaline Phosphatase 93 U/L (40-130) 12/01/22 17:51 Total Protein 6.5 g/dL (6.6-8.7) L 12/01/22 17:51 Albumin 3.8 g/dL (3.5-5.2) 12/01/22 17:51 Globulin 2.7 g/dL (1.3-4.6) 12/01/22 17:51 Urine Color Yellow (Yellow) 12/01/22 22:00 Urine Appearance Clear (CLEAR) 12/01/22 22:00 Urine pH 5 (5-7) 12/01/22 22:00 Ur Specific [place] 1.020 (1.005-1.030) 12/01/22 22:00 Urine Protein Neg (Negative) 12/01/22 22:00 Urine Glucose (UA) Norm (Normal) 12/01/22 22:00 Urine Ketones Negative (Negative) 12/01/22 22:00 Urine Blood Neg (Negative) 12/01/22 22:00 Urine Nitrate Negative (Negative) 12/01/22 22:00 Urine Bilirubin Neg (Negative) 12/01/22 22:00 Urine Urobilinogen Norm mg/dL (Negative) 12/01/22 22:00 Ur Leukocyte Esterase Negative (Negative) 12/01/22 22:00 Salicylates < 0.3 mg/dL (3-10) L 12/01/22 17:51 Urine Opiates Screen Negative ng/mL (Negative) 12/01/22 22:00 Acetaminophen < 5.0 ug/mL (10-30) L 12/01/22 17:51 Ur Barbiturates Screen Negative ng/mL (Negative) 12/01/22 22:00 Ur Phencyclidine Scrn Negative ng/mL (Negative) 12/01/22 22:00 Ur Amphetamines Screen Positive ng/mL (Negative) H 12/01/22 22:00 U Benzodiazepines Scrn Positive ng/mL (Negative) H 12/01/22 22:00 Urine Cocaine Screen Negative ng/mL (Negative) 12/01/22 22:00 U Marijuana (THC) Screen Negative ng/mL (Negative) 12/01/22 22:00 Ethyl Alcohol < 10 mg/dL (0-10) 12/01/22 17:51 Discharge Plan Discharge Patient Disposition: Home Clinical Impression: Methamphetamine abuse Condition: Stable Prescriptions: No Action quetiapine 100 mg Tablet 200 mg PO BEDTIME 30 Days Qty: 60 1RF escitalopram oxalate 20 mg tablet 20 mg PO DAILY 30 Days Qty: 30 1RF olanzapine 5 mg Tablet 5 mg PO DAILY PRN (Reason: Anxiety) 30 Days Qty: 30 1RF Discharge Orders: Discharge ED (Routine); Ordered 12/02/22 Ordered By: Praveena Cadena Referrals: Ariel Bui, [Primary Care Provider] - Discharge Diet: Advance as tolerated Discharge Activity: Resume usual activity Patient Instructions: Methamphetamine Abuse Coding Level of Care Code ED Engineering Project Manager for Jessika Adrian
[2022-12-01 17:23] VITALS: BP 116/77; PULSE 104; RESP 16; O2SAT 92
--- NOTE | 2022-12-01 17:46 | PC.NURSE ---
PT RESTING IN BED EYES CLOSED RR 16 EVEN AND UNLABORED. O2 SATS 92% RA.
[2022-12-01 17:53] VITALS: BP 100/74; PULSE 98; RESP 16; O2SAT 93
[2022-12-01 18:02] LABS: Basophils % 0.6 %; Eosinophils # 0.2 10^3/uL (0.0-0.8); Eosinophils % 2.8 %; Hematocrit 36.7 % (42.0-52.0); Hemoglobin 12.3 g/dL (11.7-16.6); Lymphocytes # 1.6 10^3/uL (0.8-4.8); Lymphocytes % 22.4 %; Mean Corpuscular HGB Conc 33.5 g/dL (30.0-36.0); Mean Corpuscular Hemoglobin 30.3 pg (28.0-34.0); Mean Corpuscular Volume 90.4 fl (80-94); Mean Platelet Volume 10.5 fL (7.4-10.4); Monocytes # 0.4 10^3/uL (0.2-0.9); Monocytes % 5.1 %; Neutrophils # 4.97 10^3/uL (1.8-7.7); Neutrophils % 68.8 %; Nucleated Red Blood Cells % 0 %; Platelet Count 218 10^3/cmm (130-400); Red Blood Count 4.06 10^6/uL (4.1-5.3); Red Cell Distribution Width 12.7 % (12.1-15.1); White Blood Count 7.2 10^3/uL (4.0-10.0)
[2022-12-01 18:20] LABS: Acetaminophen < 5.0 ug/mL (10-30); Alanine Aminotransferase 11 U/L (0-41); Albumin Level 3.8 g/dL (3.5-5.2); Alcohol Level < 10 mg/dL (0-10); Alkaline Phosphatase 93 U/L (40-130); Anion Gap 16.1 (5-19); Aspartate Amino Transferase 13 U/L (0-40); Blood Urea Nitrogen 18 mg/dL (6-20); Calcium 8.8 mg/dL (8.5-10.5); Carbon Dioxide 25 mmol/L (22-29); Chloride 106 mmol/L (98-107); Creatinine Clr Calc Pharmacy 120.3238; Globulin 2.7 g/dL (1.3-4.6); Glomerular Filtration Rate 105.5 mL/min (90-130); Glucose 111 mg/dL (65-115); Osmolality Calculated 301 mOsm/kg (285-295); Potassium 3.1 mmol/L (3.5-5.1); Salicylate < 0.3 mg/dL (3-10); Sodium 144 mmol/L (136-145); Total Bilirubin 0.3 mg/dL (0.15-1.2); Total Protein 6.5 g/dL (6.6-8.7)
[2022-12-01 19:45] VITALS: BP 113/80; PULSE 82; RESP 18; O2SAT 96
--- NOTE | 2022-12-01 19:47 | PC.NURSE ---
This nurse received report from GLADYS Soto. When nurse walked into room patient was hooked up to BP and pulse ox machine, vital signs WNL at this time. patient present was sleep with snoring audible from doorway. patient is not in restraints upon nurses arrival. Patient was stimulated for assessment purpose but was unsuccessful not able to get patient to talk with nurse (patient rolled over onto his other side and went back to sleep). patient is clothed in his own jeans. patient safety and health manager outside room in visual distance.
[2022-12-01 20:39] VITALS: BP 120/80; PULSE 65; RESP 17; O2SAT 96
--- NOTE | 2022-12-01 21:35 | PC.NURSE ---
patient is awake and talking. patient alert and oriented X3. patient is shaking and rocking back and forth. patient is not aggressive or harmful to self or staff at this time. MD aware of patient status
[2022-12-01 22:09] LABS: Add Urine Microscopic? NO; Charge for UA Resulting for Rev
[2022-12-01 22:11] LABS: Bilirubin Urine Neg (Negative); Blood Urine Neg (Negative); Glucose Urine UA Norm (Normal); Ketones Urine Negative (Negative); Leukocyte Esterase Urine Negative (Negative); Nitrate Urine Negative (Negative); Protein Urine Neg (Negative); Urine Appearance Clear (CLEAR); Urine Color Yellow (Yellow); Urobilinogen Urine Norm (Negative); pH Urine 5 (5-7)
[2022-12-01 22:20] LABS: Amphetamines Screen Urine Positive (Negative); Barbiturates Screen Urine Negative (Negative); Benzodiazepines Screen Urine Positive (Negative); Cocaine Screen Urine Negative (Negative); Opiate Screen Urine Negative (Negative); PCP Screen Urine Negative (Negative); THC Screen Urine Negative (Negative)
--- NOTE | 2022-12-02 00:34 | PC.NURSE ---
Attempted to Call via Telemedicine at 1130 and 0035 with no answer
[2022-12-02 02:00] VITALS: BP 100/60; PULSE 72; RESP 18; O2SAT 96
--- NOTE | 2022-12-02 02:53 | PC.NURSE ---
attempted to talk with patient. patient not able to answer questions at this time and is still pretty sedated. MD notified. will attempt again around 5 am
--- NOTE | 2022-12-02 04:59 | PC.NURSE ---
patient awake and talking with staff. called and interview patient.
[2022-12-02 05:29] VITALS: BP 98/60; PULSE 100; RESP 18; O2SAT 96
--- NOTE | 2022-12-02 05:35 | PC.NURSE ---
nurse provided patient with socks and a paper scrub top upon DC. nurse asked if she could call him a ride and patient stated i dont know who i would call. i can just walk home. i live right around the [facility], [facility] [facility] [address] [address] nurse offered patient water to take upon DC but patient refused.
== END 2022-12-02 05:37 | disposition home or self-care (01) ==
PROVIDERS: Family Medicine; Emergency Provider Emergency Medicine; PCP Family Medicine
DX: F15.10 Other stimulant abuse, uncomplicated (principal); F17.200 Nicotine dependence, unspecified, uncomplicated
CPT/HCPCS: 36415; 80053; 80306; 80307; 81003; 85025; 96372; 99284; J2060; J3486; Q3014

== ENCOUNTER → 2024-07-30 10:55 | Outpatient (BNVA) | payer OTHER, SELFPAY | PROVIDERS: PCP Family Medicine; Visit Provider Nurse Practitioner Psychiatric/Mental Health | DX: F33.2 Major depressive disorder, recurrent severe without psychotic features (principal); F41.1 Generalized anxiety disorder; F15.20 Other stimulant dependence, uncomplicated | CPT/HCPCS: 80061; 83036 ==

== ENCOUNTER 2024-08-23 17:10 | Inpatient (IN) | payer SELFPAY ==
[2024-08-01 11:15] VITALS: BP 134/94; BMI 26.8
[2024-08-23 17:12] VITALS: BP 132/87; PULSE 117; RESP 16; TEMP 36.8; O2SAT 99; BMI 20.7
--- NOTE | 2024-08-23 17:23 | ECG_ITS ---
[employer] [facility] Test Date: 2024-08-23 Pat Name: Jay Kramer Department: Room: Gender: Male Lead Designer: : 1980 Requested By: Praveena Cadena Order Number: [id number] Mehta MD: Teo Malagon M.D. Measurements Intervals [place] Rate: 114 P: 50 ID: [id number] QRS: 53 QRSD: 98 T: 37 QT: 297 QTc: 410 Interpretive Statements SINUS TACHYCARDIA NONSPECIFIC ST & T-WAVE ABNORMALITY Compared to ECG 11/28/2020 17:46:11 T-wave abnormality now present Sinus rhythm no longer present Electronically Signed On 08-23-2024 17:57:05 ERP CONSULTANT by Teo Malagon M.D. [email or web address]
--- NOTE | 2024-08-23 17:25 | W.ED.PSYCHS ---
HPI - Psych General: Chief Complaint: Psychiatric Symptoms Stated Complaint: 96 Time Seen by Provider: 08/23/24 17:11 Source: patient and police Mode of arrival: ambulatory Limitations: no limitations History of Present Illness: 44-year-old male is here with police under a court ordered 96-hour hold. Patient has history of meth abuse along with psychosis patient's been extremely paranoid thinking that people are out to get him patient's mother to place my 6-year-old for this. He has been admitted in the past. He denies any SI but is quite paranoid here Associated symptoms: Reports delusions Related Data Previous Rx's Medication Instructions Recorded escitalopram oxalate 20 mg tablet 20 mg PO DAILY 30 days #30 tabs 12/28/21 olanzapine 5 mg tablet 5 mg PO DAILY PRN Anxiety 30 days 12/28/21 #30 tabs quetiapine 100 mg tablet 200 mg (2 x 100 mg) PO BEDTIME 30 12/28/21 days #60 tabs Allergies Allergy/AdvReac Type Severity Reaction Status Date / Time No Known Allergies Allergy Verified 02/29/24 15:58 [facility] ED PFSH: Medical History Psychiatric care Methamphetamine abuse Surgical History No significant past surgical history Social History Smoking and tobacco/nicotine status: current every day tobacco/nicotine user Physical Exam Const: COMMON NORMALS: no acute distress, patient oriented x3 and healthy appearing HENMT: COMMON NORMALS: normocephalic and atraumatic HEAD & SCALP: normocephalic and atraumatic Neck/C-Spine: COMMON NORMALS: full ROM and supple Chest: COMMONS NORMALS: normal inspection of the chest and normal palpation of entire chest wall Resp: COMMON NORMALS: normal respiratory effort Cardio: COMMON NORMALS: regular rate RATE: regular rate Extremity: COMMON NORMALS: normal to inspection and full ROM Neuro: COMMON NORMALS: patient oriented x3, moves all extremities and no focal motor deficits Psych: COMMON NORMALS: mental status grossly normal and cooperative THOUGHT PROCESS: Flight of ideas present and Illogical thought process present THOUGHT CONTENT: Yes delusions Skin: COMMON NORMALS: no rashes or lesions noted and no wounds GENERAL SKIN EXAM: no rashes or lesions noted Course Vital Signs: Vital signs: Vital Signs Temperature 98.3 F 08/23/24 17:55 Pulse Rate 117 H 08/23/24 17:55 Respiratory Rate 16 08/23/24 17:55 Blood Pressure 132/87 08/23/24 17:55 Pulse Oximetry 99 08/23/24 17:55 Oxygen Delivery Me thod Room Air 08/23/24 17:55 MDM - Psych Medical Decision Making Patient presents here with acute psychosis likely drug-induced he is brought in under 96-hour hold he is medically cleared I spoke to psychiatrist will admit at this time Medical Records I reviewed the patient's medical records. Lab Data I reviewed the patient's lab results. 08/23/24 17:36 08/23/24 17:36 Laboratory Results WBC 10.23 10^3/uL (3.29-11.43) 08/23/24 17:36 RBC 5.02 10^6/uL (3.85-5.65) 08/23/24 17:36 Hgb 15.30 g/dL (11.27-16.99) 08/23/24 17:36 Hct 45.8 % (37-53) 08/23/24 17:36 MCV 91.2 fl (82-101) 08/23/24 17:36 MCH 30.5 pg (27-33) 08/23/24 17:36 MCHC 33.4 g/dL (30-55) 08/23/24 17:36 RDW 13.2 % (12.1-15.1) 08/23/24 17:36 Plt Count 267 10^3/cmm (157-399) 08/23/24 17:36 MPV 10.0 fL (7.4-10.4) 08/23/24 17:36 Neut % (Auto) 76.4 % 08/23/24 17:36 Lymph % (Auto) 15.0 % 08/23/24 17:36 [place] % (Auto) 5.4 % 08/23/24 17:36 Eos % (Auto) 2.4 % 08/23/24 17:36 Baso % (Auto) 0.5 % 08/23/24 17:36 Neut # (Auto) 7.82 10^3/uL (1.8-7.7) H 08/23/24 17:36 Lymph # (Auto) 1.5 10^3/uL (0.8-4.8) 08/23/24 17:36 [place] # (Auto) 0.6 10^3/uL (0.2-0.9) 08/23/24 17:36 Eos # (Auto) 0.3 10^3/uL (0.0-0.8) 08/23/24 17:36 Baso # (Auto) 0.1 10^3/uL (0.0-0.1) 08/23/24 17:36 Nucleated RBC % (auto) 0 % 08/23/24 17:36 Nucleated RBCs # 0.0 /100WBC 08/23/24 17:36 Sodium 141 mmol/L (136-145) 08/23/24 17:36 Potassium 3.3 mmol/L (3.5-5.1) L 08/23/24 17:36 Chloride 101 mmol/L (98-107) 08/23/24 17:36 Carbon Dioxide 30 mmol/L (22-29) H 08/23/24 17:36 Anion Gap 13.3 (5-19) 08/23/24 17:36 BUN 24 mg/dL (6-20) H 08/23/24 17:36 Creatinine 0.9 mg/dL (0.7-1.2) 08/23/24 17:36 GFR Calculation 91.3 mL/min (90-130) 08/23/24 17:36 Glucose 135 mg/dL (65-115) H 08/23/24 17:36 Calculated Osmolality 298 mOsm/kg (285-295) H 08/23/24 17:36 Calcium 9.6 mg/dL (8.5-10.5) 08/23/24 17:36 Total Bilirubin 0.5 mg/dL (0.15-1.2) 08/23/24 17:36 AST 14 U/L (0-40) 08/23/24 17:36 ALT 31 U/L (0-41) 08/23/24 17:36 Alkaline Phosphatase 102 U/L (40-130) 08/23/24 17:36 Total Protein 7.5 g/dL (6.6-8.7) 08/23/24 17:36 Albumin 4.5 g/dL (3.5-5.2) 08/23/24 17:36 Globulin 3.0 g/dL (1.3-4.6) 08/23/24 17:36 Salicylates < 0.3 mg/dL (3-10) L 08/23/24 17:36 Acetaminophen < 5.0 ug/mL (10-30) L 08/23/24 17:36 Ethyl Alcohol < 10 mg/dL (0-10) 08/23/24 17:36 Coronavirus (PCR) Negative (Negative) 08/23/24 17:16 Influenza A (PCR) Negative (Negative) 08/23/24 17:16 Influenza Type B (PCR) Negative (Negative) 08/23/24 17:16 RSV (PCR) Negative (Negative) 08/23/24 17:16 No radiology studies performed this visit EKG Data EKG 1: I personally reviewed and interpreted this EKG as follows: EKG interpretation date: 08/23/24 EKG interpretation time: 17:23 Interpretation: sinus tach hr [address] elevation qrs 98 qtc 365 Discharge Plan Discharge Patient Disposition: Admitted As Inpatient Clinical Impression: Acute psychosis Condition: Stable Prescriptions: No Action quetiapine 100 mg Tablet 200 mg PO BEDTIME 30 Days Qty: 60 1RF escitalopram oxalate 20 mg tablet 20 mg PO DAILY 30 Days Qty: 30 1RF olanzapine 5 mg Tablet 5 mg PO DAILY PRN (Reason: Anxiety) 30 Days Qty: 30 1RF Referrals: Ariel Bui DO [Primary Care Provider] - Coding Level of Care Code ED Certified Ophthalmic Technician for Chg Nguyễn
--- NOTE | 2024-08-23 17:30 | PC.NURSE ---
pt dressed out into paper scrubs with this nurse and x3 [employer] deputies present. pt shirt, pants placed into belonging bag and placed in locker outside room 9. pt denies any weapons/drugs on body. HCSO states they checked patient prior to arrival.
[2024-08-23] MEDS: LORazepam 2 mg/mL INJ 1 mL IM (17:33)
[2024-08-23] MEDS: haloperidol inj 5 mg/mL INJ 1 mL IM (17:33)
[2024-08-23 17:55] VITALS: BP 132/87; PULSE 117; RESP 16; TEMP 36.8; O2SAT 99
[2024-08-23 17:57] LABS: Basophils # 0.1 10^3/uL (0.0-0.1); Basophils % 0.5 %; Eosinophils # 0.3 10^3/uL (0.0-0.8); Eosinophils % 2.4 %; Hematocrit 45.8 % (37-53); Lymphocytes # 1.5 10^3/uL (0.8-4.8); Mean Corpuscular HGB Conc 33.4 g/dL (30-55); Mean Corpuscular Hemoglobin 30.5 pg (27-33); Mean Corpuscular Volume 91.2 fl (82-101); Monocytes # 0.6 10^3/uL (0.2-0.9); Monocytes % 5.4 %; Neutrophils # 7.82 10^3/uL (1.8-7.7); Neutrophils % 76.4 %; Nucleated Red Blood Cells % 0 %; Platelet Count 267 10^3/cmm (157-399); Red Blood Count 5.02 10^6/uL (3.85-5.65); Red Cell Distribution Width 13.2 % (12.1-15.1); White Blood Count 10.23 10^3/uL (3.29-11.43)
[2024-08-23 18:15] LABS: Alanine Aminotransferase 31 U/L (0-41); Albumin Level 4.5 g/dL (3.5-5.2); Alkaline Phosphatase 102 U/L (40-130); Anion Gap 13.3 (5-19); Aspartate Amino Transferase 14 U/L (0-40); Blood Urea Nitrogen 24 mg/dL (6-20); Calcium 9.6 mg/dL (8.5-10.5); Carbon Dioxide 30 mmol/L (22-29); Chloride 101 mmol/L (98-107); Creatinine Clr Calc Pharmacy 99.4292; Glomerular Filtration Rate 91.3 mL/min (90-130); Glucose 135 mg/dL (65-115); Osmolality Calculated 298 mOsm/kg (285-295); Potassium 3.3 mmol/L (3.5-5.1); Sodium 141 mmol/L (136-145); Total Bilirubin 0.5 mg/dL (0.15-1.2); Total Protein 7.5 g/dL (6.6-8.7)
[2024-08-23 18:16] LABS: Acetaminophen < 5.0 ug/mL (10-30); Alcohol Level < 10 mg/dL (0-10); Salicylate < 0.3 mg/dL (3-10)
--- NOTE | 2024-08-23 18:25 | PC.NURSE ---
96 hr rights reviewed with pt @0330 with assistance of [facility] sea air land officer a[place]ron. All education reviewed. No verbalized questions at this time. Patient copy left with pt.
[2024-08-23 18:42] LABS: Covid PCR NEGATIVE (Negative); Influenza A NEGATIVE (Negative); Influenza B NEGATIVE (Negative); Respiratory Syncytial Virus Ce NEGATIVE (Negative)
[2024-08-23 21:58] VITALS: BP 132/87; PULSE 117; RESP 18; O2SAT 100
[2024-08-23 22:05] VITALS: BP 118/69; PULSE 84; RESP 18; TEMP 36.5; O2SAT 95
[2024-08-24 06:00] VITALS: BP 95/60; PULSE 82; RESP 16; TEMP 36.7; O2SAT 96
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
--- NOTE | 2024-08-24 11:19 | PC.NURSE ---
Admission assessment During admission assessment, patient cooperative. Some responses are delayed. Patient laughs frequently. This nurse asked what was so funny. Patient said that this nurse is cute and remind me of somebody. Patient denies thoughts of suicide. Patient reports AVH sometimes .
[2024-08-24 14:00] VITALS: BP 107/67; PULSE 90; RESP 16; O2SAT 95
[2024-08-24] MEDS: nicotine 2 mg Gum BUCCAL (14:10)
[2024-08-24 18:12] LABS: Amphetamines Screen Urine Positive (Negative); Barbiturates Screen Urine Negative (Negative); Benzodiazepines Screen Urine Positive (Negative); Cocaine Screen Urine Negative (Negative); Opiate Screen Urine Negative (Negative); PCP Screen Urine Negative (Negative); THC Screen Urine Negative (Negative)
[2024-08-24 21:22] VITALS: BP 132/66; PULSE 85; RESP 18; O2SAT 95
[2024-08-25 06:00] VITALS: BP 138/90; PULSE 76; RESP 17; O2SAT 96
--- NOTE | 2024-08-25 09:25 | P.NPUPN_ITS ---
Subjective NPU 2 Subjective: Patient presented today reporting that he is doing okay. He identifies that he is struggling with his addiction still but he is appreciative of being brought into the hospital and apologized for any difficulty he because as he was in a bad state when he presented. He endorsed an openness to the trial of medication and we discussed the risks, benefits and alternatives of the Invega and he understood and agreed to proceed as is documented in this note. He denied any side effects of the medications. Mental Status Exam 2 MSE Comments: This is a well-nourished, well-developed, white male in hospital scrubs with limited grooming and eye contact. No abnormal movements except for some psychomotor retardation. Somewhat uncooperative with exam in mild to moderate distress. Speech was limited but increased rate, and slightly decreased volume. Mood described as anxious, affect was somewhat irritable. Thought process, mostly organized. Thought content: patient denied any suicidal or homicidal ideation, there were no delusions reported but some paranoia and persecutory delusions noted he did not appear to be attending to internal stimuli. Attention and concentration were limited, and memory was unreliable, but none were formally tested. He is alert and oriented to person and place. Insight and judgment are impaired. Impulse control is impaired.? ? Vitals/I&O/Wt Last Vital Signs Temp 98.0 F 08/24/24 06:00 Pulse 76 08/25/24 06:00 Resp 17 08/25/24 06:00 BP 138/90 08/25/24 06:00 Pulse Ox 96 08/25/24 06:00 O2 Del Method Room Air 08/24/24 14:00 Weight last 48 hrs Weight 63.503 kg Data NPU 08/23/24 17:36 08/23/24 17:36 A&P Assessment and plan (1) Suicidal ideation: (2) Methamphetamine-induced psychotic disorder: (3) Psychosis: (4) Methamphetamine use disorder, severe: Plan This is a 44-year-old white male with a long history of psychosis and active addiction including significant amphetamine use disorder severe and likely substance-induced psychosis. 1. Continue current medication. Initiate Invega 6 mg p.o. daily. Consider medication for anxiety. 2. Continue every 15 minute checks for safety. 3. Encourage individual, group and milieu therapies. 4. Encourage sober living treatment after discharge at the highest level of care to which he is willing to commit. 5. Obtain collateral information. Involuntary Hold Information 2 96 Hour Hold: 96 Hour Involuntary Admission: Yes Other Hold: Hold End Date: 08/29/24 Attestations NPU 2 Medical Necessity Statement*: Inpatient hospitalization is medically necessary, and the clinically appropriate intervention at this time. We will monitor/initiate medications and make changes as indicated. Likely length of stay 3-5 days Coding Level of Care Code Acute Code for g Fwd Diagnoses Suicidal ideation R45.851 Methamphetamine-induced psychotic disorder F15.959 Psychosis F29 Methamphetamine use disorder, severe F15.20
[2024-08-25 10:00] VITALS: BP 106/58; PULSE 90; RESP 18; TEMP 37.1; O2SAT 96
[2024-08-25 14:00] VITALS: BP 123/83; PULSE 88; RESP 16; TEMP 37.2; O2SAT 98
[2024-08-25] MEDS: nicotine 2 mg Gum BUCCAL ×2 (14:39→17:15)
[2024-08-25] MEDS: hyDROXYzine 25 mg Capsule 50 MG PO (16:01)
[2024-08-25] MEDS: paliperidone ER 6 mg Tablet PO (19:02)
[2024-08-26 06:00] VITALS: BP 102/64; PULSE 86; RESP 17; O2SAT 95
[2024-08-26] MEDS: nicotine 21 mg Patch 1 PATCH TRANSDERMA (10:03)
[2024-08-26] MEDS: paliperidone ER 6 mg Tablet PO (10:03)
--- NOTE | 2024-08-26 11:56 | P.NPUPN_ITS ---
Subjective NPU 2 Subjective: Patient presented today reported that he is doing okay. He reports the medications have been very helpful and he is hoping to get himself back on track from a treatment standpoint. We agreed he would work with the social work team tomorrow to look at discharge possibilities. We discussed the likelihood of discharge in the next few days. He denied any side effects to the medication. Mental Status Exam 2 MSE Comments: This is a well-nourished, well-developed, white male in hospital scrubs with limited grooming and eye contact. No abnormal movements except for some psychomotor retardation. Cooperative with exam in mild distress. Speech more spontaneous and more normal rate, and volume. Mood described as getting better, affect was congruent. Thought process, mostly organized. Thought content: patient denied any suicidal or homicidal ideation, there were no delusions reported or noted he did not appear to be attending to internal stimuli. Attention and concentration were intact, and memory was more reliable, but none were formally tested. He is alert and oriented to person and place. Insight and judgment are improving. Impulse control is limited but improving.? ? Vitals/I&O/Wt Last Vital Signs Temp 98.9 F 08/25/24 14:00 Pulse 86 08/26/24 06:00 Resp 17 08/26/24 06:00 BP 102/64 08/26/24 06:00 Pulse Ox 95 08/26/24 06:00 O2 Del Method Room Air 08/24/24 14:00 Weight last 48 hrs Weight 86.183 kg Data NPU 08/23/24 17:36 08/23/24 17:36 A&P Assessment and plan (1) Suicidal ideation: (2) Methamphetamine-induced psychotic disorder: (3) Psychosis: (4) Methamphetamine use disorder, severe: Plan This is a 44-year-old white male with a long history of psychosis and active addiction including significant amphetamine use disorder severe and likely substance-induced psychosis. 1. Continue current medication. Initiate Invega 6 mg p.o. daily. Consider medication for anxiety. 2. Continue every 15 minute checks for safety. 3. Encourage individual, group and milieu therapies. 4. Encourage sober living treatment after discharge at the highest level of care to which he is willing to commit. 5. Obtain collateral information. Involuntary Hold Information 2 96 Hour Hold: 96 Hour Involuntary Admission: Yes Other Hold: Hold End Date: 08/29/24 Attestations NPU 2 Medical Necessity Statement*: Inpatient hospitalization is medically necessary, and the clinically appropriate intervention at this time. We will monitor/initiate medications and make changes as indicated. 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
[2024-08-26 14:00] VITALS: BP 131/88; PULSE 102; RESP 17; TEMP 36.6; O2SAT 100
[2024-08-26] MEDS: OLANZapine 5 mg ODT PO (20:12)
[2024-08-26] MEDS: trazodone 50 mg Tablet PO (20:12)
[2024-08-26 21:41] VITALS: BP 126/93; PULSE 86; RESP 18; TEMP 36.8; O2SAT 96
[2024-08-27 06:00] VITALS: BP 97/62; PULSE 84; RESP 18; TEMP 36.4; O2SAT 95
[2024-08-27] MEDS: paliperidone ER 6 mg Tablet PO (07:58)
[2024-08-27 14:00] VITALS: BP 102/78; PULSE 74; RESP 16; TEMP 36.9; O2SAT 98
[2024-08-27] MEDS: nicotine 2 mg Gum BUCCAL (15:59)
--- NOTE | 2024-08-27 16:05 | W.PM.NPUPNS ---
Subjective NPU Subjective: Patient presented today reporting that he is feeling better and was lobbying to discharge. We discussed his conversation with his vocational case manager and her concerns about him discharging which she did not seem capable of responding in any way other than seeming confused. We discussed the fact that his mother had significant concerns about him returning home due to aggressive talk. He was denying any aggressiveness towards his mother. We discussed the plan to get collateral information related to his mom and try to understand what he might be saying to others that is raising their fear. He denied any side effects to the medication. Mental Status Exam MSE Comments: This is a well-nourished, well-developed, white male in hospital scrubs with limited grooming and eye contact. No abnormal movements except for some psychomotor retardation. Cooperative with exam in mild distress. Speech more spontaneous and more normal rate, and volume. Mood described as getting better, affect was congruent. Thought process, mostly organized. Thought content: patient denied any suicidal or homicidal ideation, there were no delusions reported or noted he did not appear to be attending to internal stimuli. Attention and concentration were intact, and memory was more reliable, but none were formally tested. He is alert and oriented to person and place. Insight and judgment are improving. Impulse control is limited but improving.? ? Vitals/I&O/Wt Last Vital Signs Temp 98.5 F 08/27/24 14:00 Pulse 74 08/27/24 14:00 Resp 16 08/27/24 14:00 BP 102/78 08/27/24 14:00 Pulse Ox 98 08/27/24 14:00 O2 Del Method Room Air 08/27/24 14:00 Weight last 48 hrs Weight 86.183 kg Data NPU 08/23/24 17:36 08/23/24 17:36 A&P Assessment and plan (1) Suicidal ideation: (2) Methamphetamine-induced psychotic disorder: (3) Psychosis: (4) Methamphetamine use disorder, severe: Plan This is a 44-year-old white male with a long history of psychosis and active addiction including significant amphetamine use disorder severe and likely substance-induced psychosis. 1. Continue current medication. Initiate Invega 6 mg p.o. daily. Consider medication for anxiety. 2. Continue every 15 minute checks for safety. 3. Encourage individual, group and milieu therapies. 4. Encourage sober living treatment after discharge at the highest level of care to which he is willing to commit. 5. Obtain collateral information. His vocational case manager came to see him today with some additional regulations about his concerning behaviors at home have his mother somewhat scared and talking about guardianship. She reports that she spoke with him today and he continues to be threatening and expressed odd desires. Involuntary Hold Information 96 Hour Hold: 96 Hour Involuntary Admission: Yes Other Hold: Hold End Date: 08/29/24 Attestations NPU Medical Necessity Statement*: Inpatient hospitalization is medically necessary, and the clinically appropriate intervention at this time. We will monitor/initiate medications and make changes as indicated. Likely length of stay 1-3 days. Unless a 21-day hold extension is necessary. Coding Level of Care Code Acute Code for [facility] Fwd Diagnoses Suicidal ideation R45.851 Methamphetamine-induced psychotic disorder F15.959 Psychosis F29 Methamphetamine use disorder, severe F15.20
--- NOTE | 2024-08-27 20:41 | PC.NURSE ---
this nurse tech documented under Sasha Breaux for 1900 rounding. charge nurse and head housekeeper notified.
[2024-08-27 22:00] VITALS: BP 111/74; PULSE 74; RESP 16; TEMP 36.6; O2SAT 94
[2024-08-27] MEDS: trazodone 50 mg Tablet PO (22:03)
[2024-08-27] MEDS: nicotine 4 mg lozenge MUCOUS MEM (22:03)
[2024-08-28 06:00] VITALS: BP 105/69; PULSE 75; RESP 16; O2SAT 95
[2024-08-28] MEDS: paliperidone ER 6 mg Tablet PO (08:59)
[2024-08-28 14:00] VITALS: BP 110/74; PULSE 88; RESP 16; TEMP 37; O2SAT 98
--- NOTE | 2024-08-28 15:13 | P.NPUPN_ITS ---
Subjective NPU 2 Subjective: Patient presented today reporting that he is doing all right. He seems somewhat frustrated with the idea that he was not going to be discharged today. We discussed the concern surrounding how he is with his mother when he is in this state and queried as to how he imagine he would correct the situation. He identified his addiction has been a significant problem and was asking about whether Suboxone would seem like a good idea. We discussed the need for more information about his background. We discussed the possibility of him being placed on a 21-day hold tomorrow and he is hopeful that that is not necessary. He denied any side effects to his medication. Mental Status Exam 2 MSE Comments: This is a well-nourished, well-developed, white male in hospital scrubs with limited grooming and eye contact. No abnormal movements except for some psychomotor retardation. Cooperative with exam in mild distress. Speech more spontaneous and more normal rate, and volume. Mood described as getting better, affect was congruent. Thought process, mostly organized. Thought content: patient denied any suicidal or homicidal ideation, there were no delusions reported or noted he did not appear to be attending to internal stimuli. Attention and concentration were intact, and memory was more reliable, but none were formally tested. He is alert and oriented to person and place. Insight and judgment are improving. Impulse control is limited but improving.? ? Vitals/I&O/Wt Last Vital Signs Temp 98 F 08/27/24 22:00 Pulse 75 08/28/24 06:00 Resp 16 08/28/24 06:00 BP 105/69 08/28/24 06:00 Pulse Ox 95 08/28/24 06:00 O2 Del Method Room Air 08/28/24 06:00 Data NPU 08/23/24 17:36 08/23/24 17:36 A&P Assessment and plan (1) Suicidal ideation: (2) Methamphetamine-induced psychotic disorder: (3) Psychosis: (4) Methamphetamine use disorder, severe: Plan This is a 44-year-old white male with a long history of psychosis and active addiction including significant amphetamine use disorder severe and likely substance-induced psychosis. 1. Continue current medication. Initiate Invega 6 mg p.o. daily. Consider medication for anxiety. 2. Continue every 15 minute checks for safety. 3. Encourage individual, group and milieu therapies. 4. Encourage sober living treatment after discharge at the highest level of care to which he is willing to commit. 5. Obtain collateral information. His counter caser came to see him 08/27/2024 with some additional revelations about him concerning behaviors at home that have his mother somewhat scared and talking about guardianship. She reports that she spoke with him today and he continues to be threatening and expressed odd desires. Involuntary Hold Information 2 96 Hour Hold: 96 Hour Involuntary Admission: Yes Other Hold: Hold End Date: 08/30/24 Attestations NPU 2 Medical Necessity Statement*: Inpatient hospitalization is medically necessary, and the clinically appropriate intervention at this time. We will monitor/initiate medications and make changes as indicated. Likely length of stay 1-3 days. Unless a 21-day hold extension is necessary. Coding Level of Care Code Acute Code for [facility] Fwd Diagnoses Suicidal ideation R45.851 Methamphetamine-induced psychotic disorder F15.959 Psychosis F29 Methamphetamine use disorder, severe F15.20
[2024-08-28] MEDS: nicotine 4 mg lozenge MUCOUS MEM ×3 (16:27→20:09)
[2024-08-28] MEDS: hyDROXYzine 25 mg Capsule 50 MG PO ×2 (18:07→20:09)
[2024-08-28] MEDS: acetaminophen 325 mg Tablet 650 MG PO (18:41)
[2024-08-28 19:40] VITALS: BP 114/82; PULSE 85; RESP 16; TEMP 36.5; O2SAT 96
[2024-08-28] MEDS: trazodone 50 mg Tablet PO (20:12)
[2024-08-29 06:00] VITALS: BP 122/79; PULSE 71; RESP 16; TEMP 36.6; O2SAT 96
[2024-08-29] MEDS: paliperidone ER 6 mg Tablet PO (08:41)
--- NOTE | 2024-08-29 09:02 | P.NPUPN_ITS ---
Subjective NPU 2 Subjective: Patient presented today reporting that he is doing okay. He reports that he reached out to his mother and she was oblivious to what he was talking about in relation to concerns she had expressed. We discussed working with the social work team as well as his outpatient watch caser and possibly having a family meeting to make sure we have clarity as to what is going on and what we should do. We continue to discuss his sobriety issues and concerns that that might be what is contributing to these poor moments. He denied any side effects to the medication. Mental Status Exam 2 MSE Comments: This is a well-nourished, well-developed, white male in hospital scrubs with limited grooming and eye contact. No abnormal movements except for some psychomotor retardation. Cooperative with exam in mild distress. Speech more spontaneous and more normal rate, and volume. Mood described as getting better, affect was congruent. Thought process, mostly organized. Thought content: patient denied any suicidal or homicidal ideation, there were no delusions reported or noted he did not appear to be attending to internal stimuli. Attention and concentration were intact, and memory was more reliable, but none were formally tested. He is alert and oriented to person and place. Insight and judgment are improving. Impulse control is limited but improving.? ? Vitals/I&O/Wt Last Vital Signs Temp 98 F 08/29/24 06:00 Pulse 71 08/29/24 06:00 Resp 16 08/29/24 06:00 BP 122/79 08/29/24 06:00 Pulse Ox 96 08/29/24 06:00 O2 Del Method Room Air 08/29/24 06:00 Data NPU 08/23/24 17:36 08/23/24 17:36 A&P Assessment and plan (1) Suicidal ideation: (2) Methamphetamine-induced psychotic disorder: (3) Psychosis: (4) Methamphetamine use disorder, severe: Plan This is a 44-year-old white male with a long history of psychosis and active addiction including significant amphetamine use disorder severe and likely substance-induced psychosis. 1. Continue current medication. Initiate Invega 6 mg p.o. daily. Consider medication for anxiety. 2. Continue every 15 minute checks for safety. 3. Encourage individual, group and milieu therapies. 4. Encourage sober living treatment after discharge at the highest level of care to which he is willing to commit. 5. Obtain collateral information. His watch caser came to see him 08/27/2024 with some additional revelations about him concerning behaviors at home that have his mother somewhat scared and talking about guardianship. She reports that she spoke with him today and he continues to be threatening and expressed odd desires. We are trying to get collateral information from mother again to make sure we have an understanding of how she feels about his return and what it will take for her to feel comfortable. He acknowledged yesterday that his addiction is a problem but he continues to be ambivalent about follow-up. Involuntary Hold Information 2 96 Hour Hold: 96 Hour Involuntary Admission: Yes Other Hold: Hold End Date: 08/30/24 Attestations NPU 2 Medical Necessity Statement*: Inpatient hospitalization is medically necessary, and the clinically appropriate intervention at this time. We will monitor/initiate medications and make changes as indicated. Likely length of stay 1-3 days. Unless a 21-day hold extension is necessary. Coding Level of Care Code Acute Code for [facility] Fwd Diagnoses Suicidal ideation R45.851 Methamphetamine-induced psychotic disorder F15.959 Psychosis F29 Methamphetamine use disorder, severe F15.20
[2024-08-29] MEDS: nicotine 4 mg lozenge MUCOUS MEM ×5 (10:05→19:40)
[2024-08-29 14:00] VITALS: BP 119/84; PULSE 109; RESP 16; TEMP 36.6; O2SAT 96
[2024-08-29] MEDS: OLANZapine 5 mg ODT PO (15:28)
[2024-08-29] MEDS: trazodone 50 mg Tablet PO (20:05)
[2024-08-29] MEDS: hyDROXYzine 25 mg Capsule 50 MG PO (20:07)
[2024-08-29 22:00] VITALS: BP 130/78; PULSE 124; RESP 18; TEMP 36.4; O2SAT 97
[2024-08-30 06:00] VITALS: BP 116/75; PULSE 83; RESP 16; O2SAT 95
[2024-08-30] MEDS: paliperidone ER 6 mg Tablet PO (08:21)
[2024-08-30] MEDS: nicotine 4 mg lozenge MUCOUS MEM ×4 (10:35→18:25)
[2024-08-30 14:00] VITALS: BP 166/89; PULSE 86; RESP 16; TEMP 36.6; O2SAT 97
--- NOTE | 2024-08-30 14:46 | P.NPUPN_ITS ---
Subjective NPU 2 Subjective: Patient presented today reporting that he is open to considering some medication changes and continue to report a desire to be a part of a consideration of Suboxone moving forward. We discussed our hope to hear from his treatment team outpatient to see with they think about that option and if that is been something they have been considering. He does not want to stay and will be going to the hearing to fight his 21-day hold but we discussed considering medication changes after we return from the hearing. Mental Status Exam 2 MSE Comments: This is a well-nourished, well-developed, white male in hospital scrubs with limited grooming and eye contact. No abnormal movements except for some psychomotor retardation. Cooperative with exam in mild distress. Speech more spontaneous and more normal rate, and volume. Mood described as getting better, affect was congruent. Thought process, mostly organized. Thought content: patient denied any suicidal or homicidal ideation, there were no delusions reported or noted he did not appear to be attending to internal stimuli. Attention and concentration were intact, and memory was more reliable, but none were formally tested. He is alert and oriented to person and place. Insight and judgment are improving. Impulse control is limited but improving.? ? Vitals/I&O/Wt Last Vital Signs Temp 97.9 F 08/30/24 14:00 Pulse 86 08/30/24 14:00 Resp 16 08/30/24 14:00 BP 166/89 08/30/24 14:00 Pulse Ox 97 08/30/24 14:00 O2 Del Method Room Air 08/30/24 14:00 Data NPU 08/23/24 17:36 08/23/24 17:36 A&P Assessment and plan (1) Suicidal ideation: (2) Methamphetamine-induced psychotic disorder: (3) Psychosis: (4) Methamphetamine use disorder, severe: Plan This is a 44-year-old white male with a long history of psychosis and active addiction including significant amphetamine use disorder severe and likely substance-induced psychosis. 1. Continue current medication. Initiate Invega 6 mg p.o. daily. Consider medication for anxiety. 2. Continue every 15 minute checks for safety. 3. Encourage individual, group and milieu therapies. 4. Encourage sober living treatment after discharge at the highest level of care to which he is willing to commit. 5. Obtain collateral information. His keycase assembler came to see him 08/27/2024 with some additional revelations about him concerning behaviors at home that have his mother somewhat scared and talking about guardianship. She reports that she spoke with him today and he continues to be threatening and expressed odd desires. We are trying to get collateral information from mother again to make sure we have an understanding of how she feels about his return and what it will take for her to feel comfortable. He acknowledged yesterday that his addiction is a problem but he continues to be ambivalent about follow-up. 21- day hold filed 21-day hold hearing today. Involuntary Hold Information 2 96 Hour Hold: 96 Hour Involuntary Admission: Yes Other Hold: Hold End Date: 08/30/24 Attestations NPU 2 Medical Necessity Statement*: Inpatient hospitalization is medically necessary, and the clinically appropriate intervention at this time. We will monitor/initiate medications and make changes as indicated. Likely length of stay 5-7 days. Coding Level of Care Code Acute Code for [facility] Fwd Diagnoses Suicidal ideation R45.851 Methamphetamine-induced psychotic disorder F15.959 Psychosis F29 Methamphetamine use disorder, severe F15.20
[2024-08-30] MEDS: hyDROXYzine 25 mg Capsule 50 MG PO (17:52)
[2024-08-30 22:00] VITALS: BP 123/82; PULSE 91; RESP 16; TEMP 36.7; O2SAT 98
[2024-08-31 06:00] VITALS: BP 104/67; PULSE 83; RESP 18; O2SAT 93
[2024-08-31] MEDS: paliperidone ER 6 mg Tablet PO (08:32)
[2024-08-31] MEDS: nicotine 4 mg lozenge MUCOUS MEM ×6 (08:32→21:17)
--- NOTE | 2024-08-31 10:16 | P.NPUPN_ITS ---
Subjective NPU 2 Subjective: Patient presented today reporting that he is doing okay. He discussed continuing to be interested in the possibility of Suboxone. We discussed continuing to work with him towards hopeful sober living treatment. He denied any side effects to his medication at this time. Mental Status Exam 2 MSE Comments: This is a well-nourished, well-developed, white male in hospital scrubs with limited grooming and eye contact. No abnormal movements except for some psychomotor retardation. Cooperative with exam in mild distress. Speech more spontaneous and more normal rate, and volume. Mood described as getting better, affect was congruent. Thought process, mostly organized. Thought content: patient denied any suicidal or homicidal ideation, there were no delusions reported or noted he did not appear to be attending to internal stimuli. Attention and concentration were intact, and memory was more reliable, but none were formally tested. He is alert and oriented to person and place. Insight and judgment are improving. Impulse control is limited but improving.? ? Vitals/I&O/Wt Last Vital Signs Temp 98.1 F 08/30/24 22:00 Pulse 83 08/31/24 06:00 Resp 18 08/31/24 06:00 BP 104/67 08/31/24 06:00 Pulse Ox 93 08/31/24 06:00 O2 Del Method Room Air 08/31/24 06:00 Data NPU 08/23/24 17:36 08/23/24 17:36 A&P Assessment and plan (1) Suicidal ideation: (2) Methamphetamine-induced psychotic disorder: (3) Psychosis: (4) Methamphetamine use disorder, severe: Plan This is a 44-year-old white male with a long history of psychosis and active addiction including significant amphetamine use disorder severe and likely substance-induced psychosis. 1. Continue current medication. Initiate Invega 6 mg p.o. daily. Consider medication for anxiety. 2. Continue every 15 minute checks for safety. 3. Encourage individual, group and milieu therapies. 4. Encourage sober living treatment after discharge at the highest level of care to which he is willing to commit. 5. Obtain collateral information. His home health care case manager came to see him 08/27/2024 with some additional revelations about him concerning behaviors at home that have his mother somewhat scared and talking about guardianship. She reports that she spoke with him today and he continues to be threatening and expressed odd desires. We are trying to get collateral information from mother again to make sure we have an understanding of how she feels about his return and what it will take for her to feel comfortable. He acknowledged yesterday that his addiction is a problem but he continues to be ambivalent about follow-up. 21- day hold hearing yesterday and inpatient placed on a 21-day hold. Involuntary Hold Information 2 96 Hour Hold: 96 Hour Involuntary Admission: Yes Other Hold: Hold End Date: 08/30/24 Attestations NPU 2 Medical Necessity Statement*: Inpatient hospitalization is medically necessary, and the clinically appropriate intervention at this time. We will monitor/initiate medications and make changes as indicated. Likely length of stay 5-7 days. Coding Level of Care Code Acute Code for [facility] Fwd Diagnoses Suicidal ideation R45.851 Methamphetamine-induced psychotic disorder F15.959 Psychosis F29 Methamphetamine use disorder, severe F15.20
[2024-08-31 14:00] VITALS: BP 97/66; PULSE 95; RESP 12; TEMP 37.1; O2SAT 94
[2024-08-31] MEDS: hyDROXYzine 25 mg Capsule 50 MG PO ×2 (15:45→21:13)
[2024-08-31] MEDS: acetaminophen 325 mg Tablet 650 MG PO (15:50)
[2024-08-31 20:27] VITALS: BP 125/90; PULSE 101; RESP 18; TEMP 36.4; O2SAT 99
[2024-08-31] MEDS: trazodone 50 mg Tablet PO (21:09)
[2024-09-01 06:00] VITALS: BP 99/68; PULSE 86; RESP 16; O2SAT 94
[2024-09-01] MEDS: paliperidone ER 6 mg Tablet PO (08:49)
--- NOTE | 2024-09-01 09:33 | P.NPUPN_ITS ---
Subjective NPU 2 Subjective: Patient presented today reporting that he is doing all right in general. He continues to be hopeful that Suboxone might be started. We discussed concerns that being on the Suboxone might create difficulties in sober living placement. He continues to be ambivalent about going to any intensive treatment scenario. He denied any side effects to the medications. Mental Status Exam 2 MSE Comments: This is a well-nourished, well-developed, white male in hospital scrubs with limited grooming and eye contact. No abnormal movements except for some psychomotor retardation. Cooperative with exam in mild distress. Speech more spontaneous and more normal rate, and volume. Mood described as getting better, affect was congruent. Thought process, mostly organized. Thought content: patient denied any suicidal or homicidal ideation, there were no delusions reported or noted he did not appear to be attending to internal stimuli. Attention and concentration were intact, and memory was more reliable, but none were formally tested. He is alert and oriented to person and place. Insight and judgment are improving. Impulse control is limited but improving.? ? Vitals/I&O/Wt Last Vital Signs Temp 97.5 F L 08/31/24 20:27 Pulse 86 09/01/24 06:00 Resp 16 09/01/24 06:00 BP 99/68 09/01/24 06:00 Pulse Ox 94 09/01/24 06:00 O2 Del Method Room Air 08/31/24 14:00 Data NPU 08/23/24 17:36 08/23/24 17:36 A&P Assessment and plan (1) Suicidal ideation: (2) Methamphetamine-induced psychotic disorder: (3) Psychosis: (4) Methamphetamine use disorder, severe: Plan This is a 44-year-old white male with a long history of psychosis and active addiction including significant amphetamine use disorder severe and likely substance-induced psychosis. 1. Continue current medication. Initiate Invega 6 mg p.o. daily. Consider medication for anxiety. 2. Continue every 15 minute checks for safety. 3. Encourage individual, group and milieu therapies. 4. Encourage sober living treatment after discharge at the highest level of care to which he is willing to commit. 5. Obtain collateral information. His case packer and sealer came to see him 08/27/2024 with some additional revelations about him concerning behaviors at home that have his mother somewhat scared and talking about guardianship. She reports that she spoke with him today and he continues to be threatening and expressed odd desires. We are trying to get collateral information from mother again to make sure we have an understanding of how she feels about his return and what it will take for her to feel comfortable. He acknowledged yesterday that his addiction is a problem but he continues to be ambivalent about follow-up. 21- day hold hearing yesterday and inpatient placed on a 21-day hold. Involuntary Hold Information 2 96 Hour Hold: 96 Hour Involuntary Admission: Yes Other Hold: Hold End Date: 08/30/24 Attestations NPU 2 Medical Necessity Statement*: Inpatient hospitalization is medically necessary, and the clinically appropriate intervention at this time. We will monitor/initiate medications and make changes as indicated. Likely length of stay 5-7 days. Coding Level of Care Code Acute Code for [facility] Fwd Diagnoses Suicidal ideation R45.851 Methamphetamine-induced psychotic disorder F15.959 Psychosis F29 Methamphetamine use disorder, severe F15.20
[2024-09-01] MEDS: nicotine 4 mg lozenge MUCOUS MEM ×5 (11:19→21:11)
[2024-09-01] MEDS: hyDROXYzine 25 mg Capsule 50 MG PO ×2 (12:29→16:00)
[2024-09-01 14:00] VITALS: BP 113/77; PULSE 106; RESP 12; TEMP 37; O2SAT 100
[2024-09-01 20:56] VITALS: BP 109/64; PULSE 88; RESP 17; O2SAT 93
[2024-09-01] MEDS: trazodone 50 mg Tablet PO (21:11)
[2024-09-01] MEDS: OLANZapine 5 mg ODT PO (21:11)
[2024-09-02 06:00] VITALS: BP 107/66; PULSE 80; RESP 17; O2SAT 95
[2024-09-02] MEDS: paliperidone ER 6 mg Tablet PO (08:21)
[2024-09-02] MEDS: acetaminophen 325 mg Tablet 650 MG PO ×2 (08:21→17:10)
[2024-09-02] MEDS: nicotine 4 mg lozenge MUCOUS MEM ×5 (08:21→20:15)
[2024-09-02 14:00] VITALS: BP 145/73; PULSE 88; RESP 16; TEMP 36.6; O2SAT 98
[2024-09-02] MEDS: OLANZapine 5 mg ODT PO (15:56)
--- NOTE | 2024-09-02 16:36 | P.NPUPN_ITS ---
Subjective NPU 2 Subjective: 44-year-old male history of paranoia and psychosis along with history of polysubstance abuse. The patient had continued to report feeling paranoid all of the time. He had reported a significant problem with managing his anxiety. He had requested Suboxone and reported a significant history of opiate withdrawal symptoms. Patient presented today reporting that he is doing all right in general. He continues to be hopeful that Suboxone might be started. He had reported that he wished to go to a sober living situation. He had expressed having chronic pain issues in the neck and body that is led him back to using opiates for several years with the longest period of sobriety being only 4 months. He reported no side effects from his medication. Mental Status Exam 2 MSE Comments: This is a well-nourished, well-developed, white male in hospital scrubs with limited grooming and eye contact. No abnormal movements except for some psychomotor retardation. He was cooperative with exam in mild distress. His speech more spontaneous and more normal rate, and volume. Mood described as getting better, affect was congruent. Thought process, mostly organized. Thought content: patient denied any suicidal or homicidal ideation, there were no delusions reported or noted he did not appear to be attending to internal stimuli. Attention and concentration were intact, and memory was more reliable, but none were formally tested. He is alert and oriented to person and place. Insight and judgment are improving. Impulse control is limited but improving.? ? Vitals/I&O/Wt Last Vital Signs Temp 97.9 F 09/02/24 14:00 Pulse 88 09/02/24 14:00 Resp 16 09/02/24 14:00 BP 145/73 09/02/24 14:00 Pulse Ox 98 09/02/24 14:00 O2 Del Method Room Air 09/02/24 14:00 Weight last 48 hrs Weight 88.541 kg Data NPU 08/23/24 17:36 08/23/24 17:36 A&P Assessment and plan (1) Suicidal ideation: (2) Methamphetamine-induced psychotic disorder: (3) Psychosis: (4) Methamphetamine use disorder, severe: Plan This is a 44-year-old white male with a long history of psychosis and active addiction including significant amphetamine use disorder severe and likely substance-induced psychosis. 1. Continue current medication. Continue Invega 6 mg p.o. daily. Start Suboxone 4/1mg SL bid. 2. Continue every 15 minute checks for safety. 3. Encourage individual, group and milieu therapies. 4. Encourage sober living treatment after discharge at the highest level of care to which he is willing to commit. 5. Obtain collateral information. His vocational case manager came to see him 08/27/2024 with some additional revelations about him concerning behaviors at home that have his mother somewhat scared and talking about guardianship. She reports that she spoke with him today and he continues to be threatening and expressed odd desires. We are trying to get collateral information from mother again to make sure we have an understanding of how she feels about his return and what it will take for her to feel comfortable. He acknowledged yesterday that his addiction is a problem but he continues to be ambivalent about follow-up. 21- day hold hearing yesterday and inpatient placed on a 21-day hold. Consider inpatient substance abuse treatment. Involuntary Hold Information 2 96 Hour Hold: 96 Hour Involuntary Admission: Yes Other Hold: Hold End Date: 08/30/24 Attestations NPU 2 Medical Necessity Statement*: Inpatient hospitalization is medically necessary, and the clinically appropriate intervention at this time. We will monitor/initiate medications and make changes as indicated. Likely length of stay 5-7 days. Coding Level of Care Code Acute Code for [facility] Fwd Diagnoses Suicidal ideation R45.851 Methamphetamine-induced psychotic disorder F15.959 Psychosis F29 Methamphetamine use disorder, severe F15.20
[2024-09-02] MEDS: buprenorphine-naloxone 4-1 mg Film 1 EACH SUBLINGUAL (17:08)
[2024-09-02] MEDS: trazodone 50 mg Tablet PO (20:15)
[2024-09-02 22:00] VITALS: BP 137/96; PULSE 99; RESP 18; TEMP 37.1; O2SAT 95
[2024-09-03 06:00] VITALS: BP 130/84; PULSE 112; RESP 18; O2SAT 94
[2024-09-03] MEDS: buprenorphine-naloxone 4-1 mg Film 1 EACH SUBLINGUAL ×2 (08:17→17:29)
[2024-09-03] MEDS: nicotine 4 mg lozenge MUCOUS MEM ×4 (08:17→21:24)
[2024-09-03] MEDS: paliperidone ER 6 mg Tablet PO (08:17)
[2024-09-03] MEDS: ondansetron 4 MG Tablet PO (11:32)
[2024-09-03] MEDS: OLANZapine 5 mg ODT PO (12:59)
[2024-09-03 14:00] VITALS: BP 136/99; PULSE 88; RESP 16; TEMP 36.9; O2SAT 96
--- NOTE | 2024-09-03 15:54 | P.NPUPN_ITS ---
Subjective NPU 2 Subjective: 44-year-old male with a history of metha mphetamine abuse, opiate dependence and history of psychosis likely induced by substances. The patient had reported feeling better on Suboxone. He had continued to refuse any inpatient substance abuse treatment at this time. He had reported feeling less paranoid. He had stated that he had a place to return home but this remained in question as his had been living there and had recently filed charges against the patient regarding assault. Patient had reported no side effects from his current medication. He had reported having difficulties with concentration. He had reported having issues with chronic pain but reported no cravings for opiates at this time. Mental Status Exam 2 MSE Comments: This is a well-nourished, well-developed, white male in hospital scrubs with limited grooming and eye contact. No abnormal movements except for some increased pacing. He was cooperative with exam in mild distress. His speech more spontaneous and more normal rate, and volume. Mood described as getting better, affect was flat. Thought process, mostly organized. Thought content: patient denied any suicidal or homicidal ideation, there were no delusions reported or noted he did not appear to be attending to internal stimuli. Attention and concentration were intact, and memory was more reliable, but none were formally tested. He is alert and oriented to person and place. Insight and judgment are improving. Impulse control is limited but improving.? ? Vitals/I&O/Wt Last Vital Signs Temp 98.5 F 09/03/24 14:00 Pulse 88 09/03/24 14:00 Resp 16 09/03/24 14:00 BP 136/99 09/03/24 14:00 Pulse Ox 96 09/03/24 14:00 O2 Del Method Room Air 09/03/24 14:00 Weight last 48 hrs Weight 88.541 kg Data NPU 08/23/24 17:36 08/23/24 17:36 A&P Assessment and plan (1) Suicidal ideation: (2) Methamphetamine-induced psychotic disorder: (3) Psychosis: (4) Methamphetamine use disorder, severe: Plan This is a 44-year-old white male with a long history of psychosis and active addiction including significant amphetamine use disorder severe and likely substance-induced psychosis. 1. Continue current medication. Continue Invega 6 mg p.o. daily. Continue Suboxone 4/1mg SL bid. 2. Continue every 15 minute checks for safety. 3. Encourage individual, group and milieu therapies. 4. Encourage sober living treatment after discharge at the highest level of care to which he is willing to commit. 5. Patient remains ambivalent regarding substance abuse treatment on inpatient basis. 21-day hold hearing yesterday and inpatient placed on a 21-day hold. Involuntary Hold Information 2 96 Hour Hold: 96 Hour Involuntary Admission: Yes Other Hold: Hold End Date: 08/30/24 Attestations NPU 2 Medical Necessity Statement*: Inpatient hospitalization is medically necessary, and the clinically appropriate intervention at this time. We will monitor/initiate medications and make changes as indicated. Likely length of stay 5-7 days. Coding Level of Care Code Acute Code for [facility] Fwd Diagnoses Suicidal ideation R45.851 Methamphetamine-induced psychotic disorder F15.959 Psychosis F29 Methamphetamine use disorder, severe F15.20
[2024-09-03] MEDS: calcium carbonate 500 mg Chew Tablet 1000 MG PO (17:13)
[2024-09-03] MEDS: trazodone 50 mg Tablet PO (21:24)
[2024-09-03] MEDS: acetaminophen 325 mg Tablet 650 MG PO (21:26)
[2024-09-03 22:00] VITALS: BP 128/91; PULSE 89; RESP 16; TEMP 36.5; O2SAT 94
[2024-09-04 05:59] VITALS: BP 96/60; PULSE 74; RESP 16; TEMP 36.8; O2SAT 93
[2024-09-04] MEDS: acetaminophen 325 mg Tablet 650 MG PO ×2 (06:28→17:59)
[2024-09-04] MEDS: buprenorphine-naloxone 4-1 mg Film 1 EACH SUBLINGUAL ×2 (08:20→17:36)
[2024-09-04] MEDS: nicotine 4 mg lozenge MUCOUS MEM ×5 (08:21→20:36)
[2024-09-04] MEDS: paliperidone ER 6 mg Tablet PO (08:21)
[2024-09-04] MEDS: OLANZapine 5 mg ODT PO (10:16)
[2024-09-04 14:00] VITALS: BP 130/84; PULSE 104; RESP 17; O2SAT 94
--- NOTE | 2024-09-04 15:51 | P.NPUPN_ITS ---
Subjective NPU 2 Subjective: 44-year-old male with a history of metha mphetamine abuse, opiate dependence and history of psychosis likely induced by substances. The patient had appeared better. He he had reported that he had felt nauseous on Suboxone yesterday but stated that it had been helpful for managing his cravings for opiates. He continued to state that he would be able to return home but information gathered by the team had suggested that there appeared to be a equivalent of a restraining order against him by his mother at the home that they both resided in at the time. He had denied any depression. He had reported that he had not been feeling as suspicious or paranoid. Mental Status Exam 2 MSE Comments: This is a well-nourished, well-developed, white male in hospital scrubs with limited grooming and eye contact. No abnormal movements except for mild pacing. He was cooperative with exam in mild distress. His speech was more spontaneous and more normal in rate, and volume. Mood described as getting better, Affect was more restricted. Thought process was linear and organized. Thought content: patient denied any suicidal or homicidal ideation, there were no delusions reported or noted he did not appear to be attending to internal stimuli. Attention and concentration were intact, and memory was more reliable, but none were formally tested. He is alert and oriented to person and place. Insight and judgment are improving. Impulse control is limited but improving.? ? Vitals/I&O/Wt Last Vital Signs Temp 98.3 F 09/04/24 05:59 Pulse 74 09/04/24 05:59 Resp 16 09/04/24 05:59 BP 96/60 09/04/24 05:59 Pulse Ox 93 09/04/24 05:59 O2 Del Method Room Air 09/04/24 05:59 Data NPU 08/23/24 17:36 08/23/24 17:36 A&P Assessment and plan (1) Suicidal ideation: (2) Methamphetamine-induced psychotic disorder: (3) Psychosis: (4) Methamphetamine use disorder, severe: Plan This is a 44-year-old white male with a long history of psychosis and active addiction including significant amphetamine use disorder severe and likely substance-induced psychosis. 1. Continue current medication. Continue Invega 6 mg p.o. daily. Continue Suboxone 4/1mg SL bid. 2. Continue every 15 minute checks for safety. 3. Encourage individual, group and milieu therapies. 4. Encourage sober living treatment after discharge at the highest level of care to which he is willing to commit. 5. Patient continues to remain ambivalent regarding substance abuse treatment on inpatient basis. Involuntary Hold Information 2 96 Hour Hold: 96 Hour Involuntary Admission: Yes Other Hold: Hold End Date: 08/30/24 Attestations NPU 2 Medical Necessity Statement*: Inpatient hospitalization is medically necessary, and the clinically appropriate intervention at this time. We will monitor/initiate medications and make changes as indicated. Likely length of stay 1-2 days. Coding Level of Care Code Acute Code for g Fwd Diagnoses Suicidal ideation R45.851 Methamphetamine-induced psychotic disorder F15.959 Psychosis F29 Methamphetamine use disorder, severe F15.20
[2024-09-04] MEDS: hyDROXYzine 25 mg Capsule 50 MG PO (17:36)
[2024-09-04] MEDS: trazodone 50 mg Tablet PO (20:36)
[2024-09-04 22:00] VITALS: BP 104/68; PULSE 88; RESP 16; TEMP 37.1; O2SAT 93
[2024-09-05 05:39] VITALS: BP 109/79; PULSE 87; RESP 16; TEMP 36.5; O2SAT 95
[2024-09-05] MEDS: hyDROXYzine 25 mg Capsule 50 MG PO (08:20)
[2024-09-05] MEDS: nicotine 4 mg lozenge MUCOUS MEM ×3 (08:20→15:00)
[2024-09-05] MEDS: buprenorphine-naloxone 4-1 mg Film 1 EACH SUBLINGUAL ×2 (08:20→16:57)
[2024-09-05] MEDS: paliperidone ER 6 mg Tablet PO (12:09)
[2024-09-05 14:00] VITALS: RESP 17
[2024-09-05] MEDS: acetaminophen 325 mg Tablet 650 MG PO (15:00)
[2024-09-05 15:05] VITALS: BP 132/78; PULSE 89; RESP 16; TEMP 36.8; O2SAT 98
--- NOTE | 2024-09-05 16:57 | PC.NURSE ---
DR. VASQUEZ APPROVED PT TAKING EVENING SCHEDULED MEDICATION OF BUPRENORPOHINE NALOXONE 4MG/1MG SUBLINGUAL FILM NOW THEN TO BE DISCHARGED.
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
== END 2024-09-05 17:08 | disposition home or self-care (01) | DRG 897 ==
LOC: ER 21:14 → NP 21:50
PROVIDERS: Admitting Provider Psychiatry & Neurology Psychiatry; Emergency Provider Emergency Medicine; PCP Family Medicine; Visit Provider Psychiatry & Neurology Psychiatry
DX: F15.259 Other stimulant dependence with stimulant-induced psychotic disorder, unspecified (principal); R45.851 Suicidal ideations; F17.210 Nicotine dependence, cigarettes, uncomplicated
CPT/HCPCS: 0241U; 36415; 80053; 80306; 80307; 85025; 93005; 96372; 97150; 97165; 99285; J0573; J1630; J2060; Q0162

== ENCOUNTER → 2024-09-17 10:53 | Outpatient (BNVA) | payer OTHER, SELFPAY ==
[2024-08-31 12:48] VITALS: BP 134/94; BMI 26.8
== END ==
PROVIDERS: PCP Family Medicine; Visit Provider Nurse Practitioner Psychiatric/Mental Health
DX: Z79.899 Other long term (current) drug therapy
CPT/HCPCS: 80307

== ENCOUNTER 2024-10-31 12:02 | Outpatient (CLI) | payer BC, MEDICAID, SELFPAY ==
[2024-08-31 12:48] VITALS: BP 134/94; BMI 26.8
--- NOTE | 2024-10-31 | ECG_ITS ---
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 Interpretive Statements Lung unchanged pre/post procedure; Intraprocedure shortess of breath; Symptoms resoled by discharge PROCEDURE: The baseline electrocardiogram showed sinus tachycardia with some nonspecific T wave changes.. At the baseline, the patient's blood pressure was 132/83 mm Hg with a heart rate of 120/min. The patient exercised for 8 minutes and 59 seconds on a standard Kody protocol. Patient attained a maximum heart rate of 170 beats per minute(98% of the maximum predicted heart rate) with a blood pressure at the peak exercise of 163/84 mm Hg. The EKG at the peak exercise revealed no significant changes. Patient did not have any chest pain or any significant arrhythmis with the exercise Sestamibi was injected 1 minute prior to the peak exercise During the recovery phase, there were no new changes. Blood pressure at the end of the recovery phase was 135/94 mm Hg with a heart rate of 117 per minute. CONCLUSION: 1. No significant EKG changes with the treadmill exercise 2. No exercise-induced chest pain or cardiac arrhythmia 3. Fair exercise tolerance, attained a maximum of 10.2 testing test METs 4. Sestamibi/Sestamibi perfusion results pending; see separate report. Electronically Signed On 11-05-2024 05:44:38 [employer] by Fitz Muller M.D. [email or web address]
[2024-10-31 12:05] VITALS: BMI 28.3
[2024-10-31 12:44] VITALS: BP 135/94; PULSE 115
== END 2024-10-31 12:03 | disposition home or self-care (01) ==
PROVIDERS: PCP Family Medicine; Visit Provider Family Medicine
DX: R07.9 Chest pain, unspecified (principal)
CPT/HCPCS: 93017

== ENCOUNTER → 2025-01-24 11:47 | Outpatient (BNVA) | payer BC, SELFPAY ==
[2024-08-31 12:48] VITALS: BP 134/94; BMI 26.8
== END ==
PROVIDERS: PCP Family Medicine; Visit Provider Nurse Practitioner Psychiatric/Mental Health
DX: Z79.899 Other long term (current) drug therapy (principal)
CPT/HCPCS: 80053; 80061; 80307; 83036

== ENCOUNTER 2025-01-25 13:46 | Outpatient (CLI) | payer BC, MEDICAID, SELFPAY ==
[2024-08-31 12:48] VITALS: BP 134/94; BMI 26.8
--- NOTE | 2025-01-25 13:45 | MR_ITS ---
WS: [id number] MRI BRAIN WITH AND WITHOUT CONTRAST HISTORY: S06.9XAA - Unspecified intracranial injury with loss of c... COMPARISON: CT head 11/10/2019 TECHNIQUE: Multiplanar imaging performed through the brain with MultiHance 20 ml's IV. No acute infarcts are seen. Mcclain-white matter differentiation is well preserved. No susceptibility artifacts or prior lacunar infarcts. Ventricles and extra-axial spaces are normal. Clivus and pituitary gland are normal. Visualized posterior fossa and brainstem are also normal. Postcontrast images are negative for masses or vascular malformations. Dural venous sinuses are normal. Paranasal sinuses: Mild mucoperiosteal thickening in the maxillary sinuses. Small air-fluid level RIGHT sphenoid sinus. Mastoid air cells: RIGHT mastoid air cells fluid. Calvarium and scalp: Normal. MR/MR head wo/w con [id number] IMPRESSION: 1. No acute infarct or hemorrhage. 2. No volume loss or atrophy. 3. No enhancing masses or vascular malformations. 4. Maxillary and RIGHT sphenoid sinus disease.
--- NOTE | 2025-01-25 14:30 | MR_ITS ---
WS: [id number] MRA CAROTID ARTERIES HISTORY: S06.9XAA - Unspecified intracranial injury with loss of consciousness. COMPARISON: None available. TECHNIQUE: MRA is performed with intravenous gadolinium. MIP and source images are reviewed. Right: Cervical carotid artery is patent. Internal/external carotid arteries are patent with no significant stenosis. Left: Cervical carotid arteries patent. Internal/external carotid arteries are also patent with no stenosis. Subclavian Arteries: Normal subclavian arteries. Vertebral Arteries: Normal vertebral arteries. MR/MR angio neck w con* [id number] IMPRESSION: Normal MR angiogram carotid arteries. Normal vertebral arteries.
--- NOTE | 2025-01-25 15:15 | MR_ITS ---
WS: [email or web address] MRA ANGIOGRAPHY [place] HISTORY: S06.9XAA - Unspecified intracranial injury with loss of consciousness. COMPARISON: None available. TECHNIQUE: 3-D MR angiography is performed of the [place]. All images are reviewed including source images. Distal vertebral and basilar arteries are intact with no significant stenosis or plaque. Posterior cerebral arteries are normal course and caliber. Posterior communicating arteries are hypoplastic. Intracranial portion of the internal carotid arteries are normal course and caliber. No significant atherosclerosis, stenosis or aneurysm identified. Middle and anterior cerebral arteries are both patent with no significant disease. Anterior communicating artery is also normal. MR/MR angio head wo con [id number] IMPRESSION: Normal MRA [place].
== END 2025-01-25 13:47 | disposition home or self-care (01) ==
PROVIDERS: PCP Family Medicine; Visit Provider Psychiatry & Neurology Neurology
DX: S06.9XAA Unspecified intracranial injury with loss of consciousness status unknown, initial encounter (principal); Q28.3 Other malformations of cerebral vessels; R93.0 Abnormal findings on diagnostic imaging of skull and head, not elsewhere classified; J34.89 Other specified disorders of nose and nasal sinuses; H74.8X1 Other specified disorders of right middle ear and mastoid; X58.XXXA Exposure to other specified factors, initial encounter
CPT/HCPCS: 70544; 70548; 70553

== ENCOUNTER 2025-02-15 14:42 | Inpatient (IN) | payer BC, MEDICAID, SELFPAY ==
[2024-08-31 12:48] VITALS: BP 134/94; BMI 26.8
--- NOTE | 2025-02-15 14:45 | ED.C_ITS ---
HPI - Psych 2 General: Chief Complaint: Psychiatric Symptoms Stated Complaint: 96 Time Seen by Provider: 02/15/25 14:42 Source: police Limitations: no limitations History of Present Illness: 44-year-old male is here with police und er 96-hour hold has a history of methamphetamine abuse he is placed on a hold has been having some hallucinations he did make statements of suicide as well. Patient here is extremely paranoid talking about terrorists Associated symptoms: Reports auditory hallucinations, delusions and depression Related Data Previous Rx's ?Medication ?Instructions ?Recorded buspirone 10 mg tablet 10 mg PO TID #90 tabs aripiprazole 10 mg tablet (Abilify) 10 mg PO .morning #30 tabs 01/24/25 fluoxetine 10 mg capsule 10 mg PO .morning #30 caps 0 01/24/25 hydroxyzine pamoate 50 mg capsule 50 mg PO TID PRN anx iety #90 caps 01/24/25 deutetrabenazine 6 mg tablet 6 mg PO .morning #30 tabs 02/07/25 (A[place]) Allergies Allergy/AdvReac Type Severity Reaction Status Date / Time No Known Allergies Allergy Verified 01/24/25 10:45 Review of Systems 2 Const: Denies: fever(s), chills, body aches or change in appetite ENMT: Denies: throat pain or dental pain Card: Denies: chest pain Resp: Denies: dyspnea GI: Denies: abdominal pain, nausea, vomiting or diarrhea Musc: Denies: neck pain or back pain Skin/Breast: Denies: rash Neuro: Denies: headache(s) Psych: Reports: depression and auditory hallucinations [facility] 2 PFSH: Medical History Tardive dyskinesia oral Major depressive disorder, recurrent episode, moderate with anxious distress Other stimulant dependence with stimulant-induced mood disorder Methamphetamines Marijuana dependence Generalized anxiety disorder Personal history of traumatic brain injury Nicotine dependence, cigarettes, uncomplicated Psychiatric care Surgical History No significant past surgical history Social History Smoking and tobacco/nicotine status: current every day tobacco/nicotine user Physical Exam 2 Const: COMMON NORMALS: negative for patient oriented x3 HENMT: COMMON NORMALS: normocephalic and atraumatic HEAD & SCALP: n ormocephalic and atraumatic Eye: COMMON NORMALS: conjunctivae normal CONJUNCTIVA: Yes conjunctivae normal Neck/C-Spine: COMMON NORMALS: full ROM and supple Chest: COMMONS NORMALS: normal inspection of the chest Resp: COMMON NORMALS: normal respiratory effort Cardio: COMMON NORMALS: regular rate RATE: regular rate Extremity: COMMON NORMALS: normal to inspection and full ROM Neuro: COMMON NORMALS: moves all extremities and no focal motor deficits; negative for patient oriented x3 Psych: COMMON NORMALS: cooperative APPEARANCE: Yes unkempt A CTIVITY/MOTOR BEHAVIOR: Yes fidgeting and Yes hyperactivity MOOD & AFFECT: Y es elevated mood THOUGHT CONTENT: Yes delusions and Yes Hallucination(s) present Skin: COMMON NORMALS: no rashes or lesions noted and no wounds GENERAL SKIN EXAM: no rashes or lesions noted Course 2 Vital Signs: Vital signs: Vital Signs Temperature 98.3 F 02/15/25 14:46 Pulse Rate 113 H 02/15/25 14:46 Respiratory Rate 16 02/15/25 14:46 Blood Pressure 148/106 02/15/25 14:46 Pulse Oximetry 96 02/15/25 14:46 Oxygen Delivery Me thod Room Air 02/15/25 14:46 MDM - Psych Medical Decision Making Patient presents here with acute psychosis along with methamphetamine abuse spoke to psychiatrist will admit here on a 96-hour hold Medical Records I reviewed the patient's medical records. Lab Data I reviewed the patient's lab results. 02/15/25 15:08 02/15/25 15:08 Laboratory Results WBC 7.57 10^3/uL (3.29-11.43) 02/15/25 15:08 RBC 4.51 10^6/uL (3.85-5.65) 02/15/25 15:08 Hgb 14.00 g/dL (11.27-16.99) 02/15/25 15:08 Hct 42.1 % (37-53) 02/15/25 15:08 MCV 93.3 fl (82-101) 02/15/25 15:08 MCH 31.0 pg (27-33) 02/15/25 15:08 MCHC 33.3 g/dL (30-55) 02/15/25 15:08 RDW 12.9 % (12.1-15.1) 02/15/25 15:08 Plt Count 268 10^3/cmm (157-399) 02/15/25 15:08 MPV 10.4 fL (7.4-10.4) 02/15/25 15:08 Neut % (Auto) 63.2 % 02/15/25 15:08 Lymph % (Auto) 26.8 % 02/15/25 15:08 [place] % (Auto) 7.0 % 02/15/25 15:08 Eos % (Auto) 1.7 % 02/15/25 15:08 Baso % (Auto) 1.2 % 02/15/25 15:08 Neut # (Auto) 4.78 10^3/uL (1.8-7.7) 02/15/25 15:08 Lymph # (Auto) 2.0 10^3/uL (0.8-4.8) 02/15/25 15:08 [place] # (Auto) 0.5 10^3/uL (0.2-0.9) 02/15/25 15:08 Eos # (Auto) 0.1 10^3/uL (0.0-0.8) 02/15/25 15:08 Baso # (Auto) 0.1 10^3/uL (0.0-0.1) 02/15/25 15:08 Nucleated RBC % (auto) 0 % 02/15/25 15:08 Nucleated RBCs # 0.0 /100WBC 02/15/25 15:08 Sodium 139 mmol/L (136-145) 02/15/25 15:08 Potassium 3.0 mmol/L (3.5-5.1) L 02/15/25 15:08 Chloride 101 mmol/L (98-107) 02/15/25 15:08 Carbon Dioxide 23 mmol/L (22-29) 02/15/25 15:08 Anion Gap 18.0 (5-19) 02/15/25 15:08 BUN 14 mg/dL (6-20) 02/15/25 15:08 Creatinine 1.1 mg/dL (0.7-1.2) 02/15/25 15:08 GFR Calculation 72.4 mL/min (90-130) L 02/15/25 15:08 Glucose 113 mg/dL (65-115) 02/15/25 15:08 Calculated Osmolality 289 mOsm/kg (285-295) 02/15/25 15:08 Calcium 9.0 mg/dL (8.5-10.5) 02/15/25 15:08 Total Bilirubin 0.5 mg/dL (0.15-1.2) 02/15/25 15:08 AST 19 U/L (0-40) 02/15/25 15:08 ALT 21 U/L (0-41) 02/15/25 15:08 Alkaline Phosphatase 104 U/L (40-130) 02/15/25 15:08 Total Protein 7.4 g/dL (6.6-8.7) 02/15/25 15:08 Albumin 4.1 g/dL (3.5-5.2) 02/15/25 15:08 Globulin 3.3 g/dL (1.3-4.6) 02/15/25 15:08 Salicylates < 0.3 mg/dL (3-10) L 02/15/25 15:08 Acetaminophen < 5.0 ug/mL (10-30) L 02/15/25 15:08 Ethyl Alcohol < 10 mg/dL (0-10) 02/15/25 15:08 No radiology studies performed this visit Discharge Plan Discharge Patient Disposition: Admitted As Inpatient Clinical Impression: Acute psychosis Condition: Stable Coding Level of Care Code ED [place] Guide for Jessika Adrian
[2025-02-15 14:46] VITALS: BP 148/106; PULSE 113; RESP 16; TEMP 36.8; O2SAT 96; BMI 27.3
[2025-02-15] MEDS: LORazepam 1 MG/0.5 ML injection 2 MG IM (15:19)
[2025-02-15 15:20] LABS: Basophils # 0.1 10^3/uL (0.0-0.1); Basophils % 1.2 %; Eosinophils # 0.1 10^3/uL (0.0-0.8); Eosinophils % 1.7 %; Hematocrit 42.1 % (37-53); Lymphocytes % 26.8 %; Mean Corpuscular HGB Conc 33.3 g/dL (30-55); Mean Corpuscular Volume 93.3 fl (82-101); Mean Platelet Volume 10.4 fL (7.4-10.4); Monocytes # 0.5 10^3/uL (0.2-0.9); Neutrophils # 4.78 10^3/uL (1.8-7.7); Neutrophils % 63.2 %; Nucleated Red Blood Cells % 0 %; Platelet Count 268 10^3/cmm (157-399); Red Blood Count 4.51 10^6/uL (3.85-5.65); Red Cell Distribution Width 12.9 % (12.1-15.1); White Blood Count 7.57 10^3/uL (3.29-11.43)
--- NOTE | 2025-02-15 15:32 | PC.NURSE ---
96 hour hold rights read and reviewed with patient. Bayron from security present during reading of rights. Patient verbalized understandings. Copy of rights given to patient.
[2025-02-15 15:33] LABS: Acetaminophen < 5.0 ug/mL (10-30); Alanine Aminotransferase 21 U/L (0-41); Albumin Level 4.1 g/dL (3.5-5.2); Alcohol Level < 10 mg/dL (0-10); Alkaline Phosphatase 104 U/L (40-130); Aspartate Amino Transferase 19 U/L (0-40); Blood Urea Nitrogen 14 mg/dL (6-20); Carbon Dioxide 23 mmol/L (22-29); Chloride 101 mmol/L (98-107); Creatinine Clr Calc Pharmacy 88.4013; Globulin 3.3 g/dL (1.3-4.6); Glomerular Filtration Rate 72.4 mL/min (90-130); Glucose 113 mg/dL (65-115); Osmolality Calculated 289 mOsm/kg (285-295); Salicylate < 0.3 mg/dL (3-10); Sodium 139 mmol/L (136-145); Total Bilirubin 0.5 mg/dL (0.15-1.2); Total Protein 7.4 g/dL (6.6-8.7)
--- NOTE | 2025-02-15 15:58 | PC.NURSE ---
accidental override on Ketamine for this pt, pt did not receive medication; non-administered in NOV and wasted 500mg in the Pyxis by this nurse and Beata Yee RN.
--- NOTE | 2025-02-15 16:16 | PC.PHAR ---
pt unable to verify his medications. Med rec completed via [facility]. Last fill dates and day supply added.
--- NOTE | 2025-02-15 16:23 | PC.NURSE ---
attempted report @[id number], unable to take report at this time; states will call back
[2025-02-15 16:41] VITALS: BP 123/81; PULSE 103; RESP 16; TEMP 36.4; O2SAT 90
[2025-02-15 16:45] VITALS: PULSE 105; O2SAT 96
[2025-02-15 19:58] VITALS: BP 105/66; PULSE 91; RESP 18; O2SAT 93
[2025-02-15] MEDS: trazodone 50 mg Tablet PO (21:45)
[2025-02-15] MEDS: hyDROXYzine 25 mg Capsule 50 MG PO (21:45)
[2025-02-16 05:33] VITALS: RESP 16
[2025-02-16] MEDS: fluoxetine 10 mg Capsule PO (08:56)
[2025-02-16] MEDS: ARIPiprazole 10 mg Tablet PO (08:56)
[2025-02-16] MEDS: BuSPIRONE 10 mg Tablet PO ×3 (08:56→21:52)
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
[2025-02-16 14:00] VITALS: BP 95/62; PULSE 90; RESP 18; TEMP 36.6; O2SAT 99
[2025-02-16 14:53] LABS: Amphetamines Screen Urine Positive (Negative); Barbiturates Screen Urine Negative (Negative); Benzodiazepines Screen Urine Positive (Negative); Cocaine Screen Urine Negative (Negative); Opiate Screen Urine Negative (Negative); PCP Screen Urine Negative (Negative); THC Screen Urine Positive (Negative)
[2025-02-16 20:17] VITALS: BP 115/69; PULSE 100; RESP 18; TEMP 36.6; O2SAT 96
[2025-02-16] MEDS: hyDROXYzine 25 mg Capsule 50 MG PO (21:52)
[2025-02-16] MEDS: trazodone 50 mg Tablet PO (21:52)
[2025-02-16] MEDS: OLANZapine 5 mg ODT PO (21:53)
[2025-02-17 06:00] VITALS: BP 98/66; PULSE 76; RESP 18; O2SAT 96; BMI 28.8
[2025-02-17] MEDS: ARIPiprazole 10 mg Tablet PO (08:38)
[2025-02-17] MEDS: BuSPIRONE 10 mg Tablet PO ×3 (08:38→20:32)
[2025-02-17] MEDS: fluoxetine 10 mg Capsule PO (08:38)
[2025-02-17 14:00] VITALS: BP 107/67; PULSE 90; RESP 18; TEMP 36.6; O2SAT 97
--- NOTE | 2025-02-17 18:10 | P.NPUPN_ITS ---
Subjective NPU 2 Subjective: 44-year-old male with a history of polys ubstance abuse admitted with suicidal ideation. The patient was positive for methamphetamine as well as THC on admission. He had admitted to using methamphetamine and stated that he was feeling better today. He had stated that he had quit taking his Invega and reported that he had stopped his Suboxone as well. He reports that he had been on Prozac and reported that his mood was better. The patient denied any feelings of hopelessness or worthlessness currently. The patient denied any hallucinations at this time. He had remained isolative on the milieu. He had reported that he had been feeling more paranoid recently. Mental Status Exam 2 MSE Comments: This is a well-nourished, well-developed, white male in hospital scrubs with limited grooming and eye contact. No abnormal involuntary motor movements appreciated except for some psychomotor retardation. He was somewhat uncooperative with exam in mild to moderate distress. Speech was limited but increased rate, and slightly decreased volume. Mood described as okay. His affect was somewhat irritable. Thought process, mostly organized. Thought content: patient denied any suicidal or homicidal ideation, there were no delusions reported but some paranoia and persecutory delusions noted he did not appear to be attending to internal stimuli. Attention and concentration were limited, and memory was unreliable, but none were formally tested. He is alert and oriented to person and place. Insight and judgment are impaired. Impulse control is impaired.? ? Vitals/I&O/Wt Last Vital Signs Temp 97.8 F 02/17/25 14:00 Pulse 90 02/17/25 14:00 Resp 18 02/17/25 14:00 BP 107/67 02/17/25 14:00 Pulse Ox 97 02/17/25 14:00 O2 Del Method Room Air 02/17/25 06:00 Weight last 48 hrs Weight 85.842 kg Data NPU 02/15/25 15:08 02/15/25 15:08 A&P Assessment and plan (1) Suicidal ideation: (2) Methamphetamine-induced psychotic disorder: (3) Psychosis: (4) Methamphetamine use disorder, severe: Plan This is a 44-year-old white male with a long history of psychosis and active addiction including significant amphetamine use disorder severe and likely substance-induced psychosis. 1. Continue current medication. Continue Abilify 10mg p.o. daily. Increase Prozac to 20mg daily. Continue Buspar 10mg po tid. 2. Continue every 15 minute checks for safety. 3. Encourage individual, group and milieu therapies. 4. Encourage sober living treatment after discharge at the highest level of care to which he is willing to commit. 5. Obtain collateral information. PDMP PDMP Reviewed: Not Reviewed Involuntary Hold Information 2 Hold Status: Legal Status: 96 Hour Hold Date/Time Hold Expires: 0 02/21/2025@1445 96 Hour Hold: 96 Hour Involuntary Admission: Yes Other Hold: Hold End Date: 08/30/24 Attestations NPU 2 Medical Necessity Statement*: Inpatient hospitalization is medically necessary, and the clinically appropriate intervention at this time. We will monitor/initiate medications and make changes as indicated. His likely length of stay is 4-6 days. Coding Level of Care Code Acute Code for [facility] Fwd Diagnoses Suicidal ideation R45.851 Methamphetamine-induced psychotic disorder F15.959 Psychosis F29 Methamphetamine use disorder, severe F15.20
[2025-02-17] MEDS: hyDROXYzine 25 mg Capsule 50 MG PO (20:32)
[2025-02-17] MEDS: trazodone 50 mg Tablet PO (20:32)
[2025-02-17 20:49] VITALS: BP 107/71; PULSE 82; RESP 16; TEMP 37; O2SAT 95
[2025-02-18 06:00] VITALS: BP 107/62; PULSE 81; RESP 16; TEMP 37.1; O2SAT 95
[2025-02-18] MEDS: ARIPiprazole 10 mg Tablet PO (08:45)
[2025-02-18] MEDS: fluoxetine 20 mg Capsule PO (08:45)
[2025-02-18] MEDS: hyDROXYzine 25 mg Capsule 50 MG PO ×2 (08:45→21:45)
[2025-02-18] MEDS: BuSPIRONE 10 mg Tablet PO ×3 (08:45→21:45)
[2025-02-18 14:00] VITALS: BP 132/99; PULSE 92; RESP 18; TEMP 36.6; O2SAT 95
--- NOTE | 2025-02-18 18:18 | P.NPUPN_ITS ---
Subjective NPU 2 Subjective: 44-year-old male with a history of polys ubstance abuse admitted with suicidal ideation. The patient reports that he felt ready to go but continued to report that he was having some unusual thoughts. The patient had remained isolative on the milieu. He had required significant prompting as he had not been able to shower. He had minimized any potential legal problems although he stated that there was an active case for drug possession. He had minimized the significance of his methamphetamine use. He had reported no side effects from his Abilify at this time. He had acknowledged that he had not been taking his Abilify or Prozac since his last medication adjustment had occurred. He had reported having unusual mouth movements secondary to the use of Invega that had led to its discontinuation. He had stated that he had been unable to receive the Ingrezza as it had not been covered on his insurance plan. The patient was positive for methamphetamine as well as THC on admission. Mental Status Exam 2 MSE Comments: This is a well-nourished, well-developed, white male in hospital scrubs with limited grooming and fleeting eye contact. He had some evidence of orobuccal movements appreciated. He was somewhat cooperative with exam in mild to moderate distress. Speech was limited but increased rate, and slightly decreased volume. Mood described as okay. His affect was irritable. Thought process, mostly organized. Thought content: patient denied any suicidal or homicidal ideation, there were no delusions reported but some paranoia appreciated. He did not appear to be attending to internal stimuli. Attention and concentration were limited, and memory was unreliable, but none were formally tested. He is alert and oriented to person and place. Insight and judgment are impaired. Impulse control is impaired.? ? Vitals/I&O/Wt Last Vital Signs Temp 97.8 F 02/18/25 14:00 Pulse 92 02/18/25 14:00 Resp 18 02/18/25 14:00 BP 132/99 02/18/25 14:00 Pulse Ox 95 02/18/25 14:00 O2 Del Method Room Air 02/18/25 06:00 Weight last 48 hrs Weight 85.842 kg Data NPU 02/15/25 15:08 02/15/25 15:08 A&P Assessment and plan (1) Suicidal ideation: (2) Methamphetamine-induced psychotic disorder: (3) Psychosis: (4) Methamphetamine use disorder, severe: Plan This is a 44-year-old white male with a long history of psychosis and active addiction including significant amphetamine use disorder severe and likely substance-induced psychosis. 1. Continue Abilify 10mg p.o. daily. Continue Prozac to 20mg daily. Add B6 100mg bid for TD. 2. Continue every 15 minute checks for safety. 3. Encourage individual, group and milieu therapies. 4. Encourage sober living treatment after discharge at the highest level of care to which he is willing to commit. 5. Obtain collateral information-patient may require substance abuse treatment. PDMP PDMP Reviewed: Not Reviewed Involuntary Hold Information 2 Hold Status: Legal Status: 96 Hour Hold Date/Time Hold Expires: 02/22/24 @ 14:45 96 Hour Hold: 96 Hour Involuntary Admission: Yes Other Hold: Hold End Date: 08/30/24 Attestations NPU 2 Medical Necessity Statement*: Inpatient hospitalization is medically necessary, and the clinically appropriate intervention at this time. We will monitor/initiate medications and make changes as indicated. His likely length of stay is 4-6 days. Coding Level of Care Code Acute Code for [facility] Fwd Diagnoses Suicidal ideation R45.851 Methamphetamine-induced psychotic disorder F15.959 Psychosis F29 Methamphetamine use disorder, severe F15.20
[2025-02-18 20:02] VITALS: BP 105/67; PULSE 78; RESP 16; TEMP 36.4; O2SAT 100
[2025-02-18] MEDS: OLANZapine 5 mg ODT PO (21:45)
[2025-02-18] MEDS: trazodone 50 mg Tablet PO (21:45)
[2025-02-19 06:00] VITALS: BP 110/69; PULSE 90; RESP 17; TEMP 37.1; O2SAT 95
[2025-02-19] MEDS: fluoxetine 20 mg Capsule PO (08:31)
[2025-02-19] MEDS: pyridoxine 50 mg Tablet 100 MG PO ×2 (08:31→17:42)
[2025-02-19] MEDS: BuSPIRONE 10 mg Tablet PO ×3 (08:31→21:28)
[2025-02-19] MEDS: ARIPiprazole 10 mg Tablet PO (08:31)
[2025-02-19 14:00] VITALS: BP 91/58; PULSE 88; RESP 16; TEMP 36.8; O2SAT 97
--- NOTE | 2025-02-19 15:16 | P.NPUPN_ITS ---
Subjective NPU 2 Subjective: 44-year-old male with a history of polys ubstance abuse admitted with suicidal ideation and bizarre behavior under influence of methamphetamine. The patient had continued to report that people were trying to control him. He had reported that he simply needed to go home. Patient was informed that his family had been concerned about his inappropriate behavior under the influence of amphetamine. He had minimized his amphetamine use and reported that if he was simply left alone he would do better. He had remained in his bedroom most of the day and continued to require significant prompting for completion of activities of daily living. He reported no side effects from his current medication regimen. Mental Status Exam 2 MSE Comments: This is a well-nourished, well-developed, white male in hospital scrubs with limited grooming and fleeting eye contact. He had some evidence of mild orobuccal movements appreciated. He was less cooperative with exam in mild to moderate distress. Speech was limited in productivity and decreased in rate, and slightly decreased volume. Mood described as fine. His affect was irritable. Thought process, mostly organized. Thought content: patient denied any suicidal or homicidal ideation, there were no delusions reported but some paranoia appreciated. He did appear to be responding to internal stimuli. Attention and concentration were poor. His recent and remote memory was unreliable, but none were formally tested. He is alert and oriented to person and place. Insight and judgment are impaired. Impulse control is impaired.? ? Vitals/I&O/Wt Last Vital Signs Temp 98.2 F 02/19/25 14:00 Pulse 88 02/19/25 14:00 Resp 16 02/19/25 14:00 BP 91/58 02/19/25 14:00 Pulse Ox 97 02/19/25 14:00 O2 Del Method Room Air 02/19/25 14:00 Data NPU 02/15/25 15:08 02/15/25 15:08 A&P Assessment and plan (1) Psychosis: (2) Suicidal ideation: (3) Methamphetamine-induced psychotic disorder: (4) Methamphetamine use disorder, severe: Plan This is a 44-year-old white male with a long history of psychosis and active addiction including significant amphetamine use disorder severe and likely substance-induced psychosis. 1. Increase Abilify 15mg p.o. daily. Continue Prozac to 20mg daily. Continue Buspar 10mg tid. Add B6 100mg bid for TD. 2. Continue every 15 minute checks for safety. 3. Encourage individual, group and milieu therapies. 4. Encourage sober living treatment after discharge at the highest level of care to which he is willing to commit. 5. DEL testing to be completed today. PDMP PDMP Reviewed: Not Reviewed Involuntary Hold Information 2 Hold Status: Legal Status: 96 Hour Hold Date/Time Hold Expires: 02/22/24 @ 14:45 96 Hour Hold: 96 Hour Involuntary Admission: Yes Other Hold: Hold End Date: 08/30/24 Attestations NPU 2 Medical Necessity Statement*: Inpatient hospitalization is medically necessary, and the clinically appropriate intervention at this time. We will monitor/initiate medications and make changes as indicated. His likely length of stay is 4-6 days. Coding Level of Care Code Acute Code for [facility] Fwd Diagnoses Psychosis F29 Suicidal ideation R45.851 Methamphetamine-induced psychotic disorder F15.959 Methamphetamine use disorder, severe F15.20
[2025-02-19 20:05] VITALS: BP 113/69; PULSE 73; RESP 18; TEMP 36.8; O2SAT 94
[2025-02-19] MEDS: trazodone 50 mg Tablet PO (21:28)
[2025-02-19] MEDS: hyDROXYzine 25 mg Capsule 50 MG PO (21:28)
[2025-02-19] MEDS: OLANZapine 5 mg ODT PO (21:28)
[2025-02-20 05:50] VITALS: RESP 16
[2025-02-20] MEDS: ARIPiprazole 10 mg Tablet 15 MG PO (08:35)
[2025-02-20] MEDS: fluoxetine 20 mg Capsule PO (08:36)
[2025-02-20] MEDS: pyridoxine 50 mg Tablet 100 MG PO ×2 (08:36→17:44)
[2025-02-20] MEDS: BuSPIRONE 10 mg Tablet PO ×3 (08:36→21:49)
[2025-02-20 14:00] VITALS: BP 116/75; PULSE 80; RESP 15; TEMP 36.6; O2SAT 95
--- NOTE | 2025-02-20 17:11 | P.NPUPN_ITS ---
Subjective NPU 2 Subjective: 44-year-old male with a history of polys ubstance abuse admitted with suicidal ideation and bizarre behavior under influence of methamphetamine. The patient continued to report desire to return home. He remained in bed nearly all day and remained withdrawn. He continued to report low energy and continued to be minimally engaged in any treatment. He reported no side effects from his medications. He had minimized the significance of his continued drug use. He had acknowledged having relapsed and used methamphetamine recently. Mental Status Exam 2 MSE Comments: This is a well-nourished, well-developed, white male in hospital scrubs with limited grooming and fleeting eye contact. He had mild evidence of mouth movements appreciated but less prominent. He was minimally cooperative with exam in mild distress. Speech was limited in productivity and decreased in rate, and slightly decreased volume. Mood described as allright. His affect was odd and subdued. Thought process was mostly linear but superficial. Thought content: patient denied any suicidal or homicidal ideation, there were no delusions reported but some paranoia appreciated. He did appear to be responding to internal stimuli. Attention and concentration were poor. His recent and remote memory was unreliable, but none were formally tested. He is alert and oriented to person and place but not date. Insight and judgment are impaired. Impulse control is impaired.? ? Vitals/I&O/Wt Last Vital Signs Temp 98 F 02/20/25 14:00 Pulse 80 02/20/25 14:00 Resp 15 02/20/25 14:00 BP 116/75 02/20/25 14:00 Pulse Ox 95 02/20/25 14:00 O2 Del Method Room Air 02/19/25 14:00 Data NPU 02/15/25 15:08 02/15/25 15:08 A&P Assessment and plan (1) Psychosis: (2) Suicidal ideation: (3) Methamphetamine-induced psychotic disorder: (4) Methamphetamine use disorder, severe: Plan This is a 44-year-old white male with a long history of psychosis and active addiction including significant amphetamine use disorder severe and likely substance-induced psychosis. 1. Continue Abilify 15mg p.o. daily. Continue Prozac to 20mg daily. Continue Buspar 10mg tid. Continue B6 100mg bid for TD. 2. Continue every 15 minute checks for safety. 3. Encourage individual, group and milieu therapies. 4. Encourage sober living treatment after discharge at the highest level of care to which he is willing to commit. 5. DEL testing completed and showed that patient required help in 10/13 areas of focus regarding his ability to live independently. Guardianship may be necessary at this time. Will file for 21 day hold. PDMP PDMP Reviewed: Not Reviewed Involuntary Hold Information 2 Hold Status: Legal Status: 96 Hour Hold Date/Time Hold Expires: 02/22/24 @ 14:45 96 Hour Hold: 96 Hour Involuntary Admission: Yes Other Hold: Hold End Date: 08/30/24 Attestations NPU 2 Medical Necessity Statement*: Inpatient hospitalization is medically necessary, and the clinically appropriate intervention at this time. We will monitor/initiate medications and make changes as indicated. His likely length of stay is 7-10 days. Coding Level of Care Code Acute Code for [facility] Fwd Diagnoses Psychosis F29 Suicidal ideation R45.851 Methamphetamine-induced psychotic disorder F15.959 Methamphetamine use disorder, severe F15.20
[2025-02-20 19:38] VITALS: BP 113/64; PULSE 84; RESP 16; O2SAT 94
[2025-02-20] MEDS: trazodone 50 mg Tablet PO (21:49)
[2025-02-20] MEDS: hyDROXYzine 25 mg Capsule 50 MG PO (21:49)
[2025-02-20] MEDS: OLANZapine 5 mg ODT PO (21:49)
[2025-02-21 06:00] VITALS: BP 120/60; RESP 16
[2025-02-21] MEDS: ARIPiprazole 10 mg Tablet 15 MG PO (08:20)
[2025-02-21] MEDS: fluoxetine 20 mg Capsule PO (08:20)
[2025-02-21] MEDS: pyridoxine 50 mg Tablet 100 MG PO ×2 (08:21→17:15)
[2025-02-21] MEDS: BuSPIRONE 10 mg Tablet PO ×3 (08:21→21:33)
[2025-02-21] MEDS: nicotine 21 mg Patch 1 PATCH TRANSDERMA (13:50)
[2025-02-21 14:00] VITALS: BP 102/67; PULSE 100; RESP 18; TEMP 36.6; O2SAT 94
--- NOTE | 2025-02-21 16:11 | P.NPUPN_ITS ---
Subjective NPU 2 Subjective: 44-year-old male with a history of polys ubstance abuse admitted with suicidal ideation and bizarre behavior under influence of methamphetamine. The patient continued to isolate himself on the milieu. He reported no side effects from his medication. He had continued to remain withdrawn and appeared confused. He had minimal concern for his self-care as he had not engaged in activities of daily living. He had struggled with maintaining a conversation as he repeatedly touched his head and appeared to be distracted and unable to complete his thoughts. Mental Status Exam 2 MSE Comments: This is a well-nourished, well-developed, white male in hospital scrubs with poor grooming and fleeting eye contact. He had mild evidence of mouth movements appreciated but less prominent. He was minimally cooperative with exam in mild distress. Speech was limited in productivity and decreased in rate, and slightly decreased volume. Mood described as okay. His affect was odd and subdued. Thought process was mostly linear but superficial. Thought content: patient denied any suicidal or homicidal ideation, there were no delusions reported but some paranoia appreciated. He did appear to be responding to internal stimuli. Attention and concentration were poor. His recent and remote memory was poor. Registration of 3 words was 1/3, recall of 3 words after 5 minutes was 0/3. He is alert and oriented to person and place but not date or day of the week. Insight and judgment are impaired. Impulse control is impaired.? ? Vitals/I&O/Wt Last Vital Signs Temp 98 F 02/20/25 14:00 Pulse 84 02/20/25 19:38 Resp 16 02/21/25 06:00 BP 120/60 02/21/25 06:00 Pulse Ox 94 02/20/25 19:38 O2 Del Method Room Air 02/19/25 14:00 Data NPU 02/15/25 15:08 02/15/25 15:08 A&P Assessment and plan (1) Psychosis: (2) Suicidal ideation: (3) Methamphetamine-induced psychotic disorder: (4) Methamphetamine use disorder, severe: Plan This is a 44-year-old white male with a long history of psychosis and active addiction including significant amphetamine use disorder severe and likely substance-induced psychosis. 1. Continue Abilify 15mg p.o. daily. Continue Prozac to 20mg daily. Continue Buspar 10mg tid. Continue B6 100mg bid for TD. 2. Continue every 15 minute checks for safety. 3. Encourage individual, group and milieu therapies. 4. Encourage sober living treatment after discharge at the highest level of care to which he is willing to commit. 5. DEL testing completed and showed that patient required help in 10/13 areas of focus regarding his ability to live independently. Patient may require court appointed guardianship. Patient remains unable to care for self independently. Continues to have active legal problems. 21 day hold filed. PDMP PDMP Reviewed: Not Reviewed Involuntary Hold Information 2 Hold Status: Legal Status: 96 Hour Hold Date/Time Hold Expires: 02/22/24 @ 14:45 96 Hour Hold: 96 Hour Involuntary Admission: Yes Other Hold: Hold End Date: 08/30/24 Attestations NPU 2 Medical Necessity Statement*: Inpatient hospitalization is medically necessary, and the clinically appropriate intervention at this time. We will monitor/initiate medications and make changes as indicated. His likely length of stay is 7-10 days. Coding Level of Care Code Acute Code for [facility] Fwd Diagnoses Psychosis F29 Suicidal ideation R45.851 Methamphetamine-induced psychotic disorder F15.959 Methamphetamine use disorder, severe F15.20
[2025-02-21 20:20] VITALS: BP 107/69; PULSE 95; RESP 18; TEMP 37.2; O2SAT 94
[2025-02-21] MEDS: OLANZapine 5 mg ODT PO (21:34)
[2025-02-21] MEDS: hyDROXYzine 25 mg Capsule 50 MG PO (21:34)
[2025-02-21] MEDS: trazodone 50 mg Tablet PO (21:34)
[2025-02-22 06:00] VITALS: BP 120/56; PULSE 76; RESP 17; TEMP 36.7; O2SAT 93
[2025-02-22] MEDS: pyridoxine 50 mg Tablet 100 MG PO ×2 (08:53→17:27)
[2025-02-22] MEDS: ARIPiprazole 10 mg Tablet 15 MG PO (08:53)
[2025-02-22] MEDS: fluoxetine 20 mg Capsule PO (08:53)
[2025-02-22] MEDS: BuSPIRONE 10 mg Tablet PO (08:53)
--- NOTE | 2025-02-22 10:53 | P.NPUPN_ITS ---
Subjective NPU 2 Subjective: 44-year-old male with a history of polys ubstance abuse admitted with suicidal ideation and bizarre behavior under influence of methamphetamine. The patient continued to isolate himself on the milieu. He was unable to provide any clear history. He had continued to appear overwhelmed often putting his hands to his had and appearing perplexed and frustrated when any detailed question was asked of him. He had minimized the fact that his mother had a restraining order against him and stated that he was living with her currently. He had continued to show evidence of very basic behavior with the patient simply eating meals and then returning back to bed to rest with limited goal-directed behavior. He had required prompting but continued to not engage in self-care including not brushing his teeth or bathing. Mental Status Exam 2 MSE Comments: This is a well-nourished, well-developed, white male in hospital scrubs with poor grooming and fleeting eye contact. He had no evidence of mouth movements appreciated today. He was minimally cooperative with exam in less distress. Speech was limited in productivity and decreased in rate, and slightly decreased volume. Mood described as okay. His affect was subdued. Thought process was mostly linear but superficial. Thought content: patient denied any suicidal or homicidal ideation, there were no delusions reported but some paranoia appreciated. He did appear to be responding to internal stimuli. He had continued evidence of poverty of content. Attention and concentration were poor. His recent and remote memory was poor. He is alert and oriented to person and place but not date or day of the week. Insight and judgment are impaired. Impulse control is impaired.? ? Vitals/I&O/Wt Last Vital Signs Temp 98.1 F 02/22/25 06:00 Pulse 76 02/22/25 06:00 Resp 17 02/22/25 06:00 BP 120/56 02/22/25 06:00 Pulse Ox 93 02/22/25 06:00 O2 Del Method Room Air 02/22/25 06:00 Data NPU 02/15/25 15:08 02/15/25 15:08 A&P Assessment and plan (1) Psychosis: (2) Suicidal ideation: (3) Methamphetamine-induced psychotic disorder: (4) Methamphetamine use disorder, severe: Plan This is a 44-year-old white male with a long history of psychosis and active addiction including significant amphetamine use disorder severe and likely substance-induced psychosis. 1. Increase Abilify 20mg p.o. daily. Continue Prozac to 20mg daily. Discontinue Buspar 10mg tid. Continue B6 100mg bid for TD. 2. Continue every 15 minute checks for safety. 3. Encourage individual, group and milieu therapies. 4. Encourage sober living treatment after discharge at the highest level of care to which he is willing to commit. 5. DEL testing completed and showed that patient required help in 10/13 areas of focus regarding his ability to live independently. Patient may require court appointed guardianship. Will begin process after 21 day hold. Patient remains unable to care for self independently. Continues to have active legal problems. 21 day hold filed. PDMP PDMP Reviewed: Not Reviewed Involuntary Hold Information 2 Hold Status: Legal Status: 96 Hour Hold Date/Time Hold Expires: 02/22/24 @ 14:45 96 Hour Hold: 96 Hour Involuntary Admission: Yes Other Hold: Hold End Date: 08/30/24 Attestations NPU 2 Medical Necessity Statement*: Inpatient hospitalization is medically necessary, and the clinically appropriate intervention at this time. We will monitor/initiate medications and make changes as indicated. His likely length of stay is greater than 2 weeks with guardianship planned. Coding Level of Care Code Acute Code for [facility] Fwd Diagnoses Psychosis F29 Suicidal ideation R45.851 Methamphetamine-induced psychotic disorder F15.959 Methamphetamine use disorder, severe F15.20
[2025-02-22 14:00] VITALS: BP 137/88; PULSE 79; RESP 18; TEMP 36.8; O2SAT 97
[2025-02-22] MEDS: nicotine 4 mg lozenge MUCOUS MEM (16:26)
[2025-02-22] MEDS: trazodone 50 mg Tablet PO (20:37)
[2025-02-22] MEDS: hyDROXYzine 25 mg Capsule 50 MG PO (20:37)
[2025-02-22 20:48] VITALS: BP 98/62; PULSE 84; RESP 16; TEMP 37; O2SAT 94
[2025-02-23 06:00] VITALS: BP 96/62; PULSE 87; RESP 16; TEMP 37.2; O2SAT 94
[2025-02-23] MEDS: pyridoxine 50 mg Tablet 100 MG PO (09:16)
[2025-02-23] MEDS: ARIPiprazole 10 mg Tablet 20 MG PO (09:16)
[2025-02-23] MEDS: fluoxetine 20 mg Capsule PO (09:16)
[2025-02-23] MEDS: nicotine 21 mg Patch 1 PATCH TRANSDERMA (12:09)
[2025-02-23 14:00] VITALS: BP 107/72; PULSE 84; RESP 18; TEMP 36.3; O2SAT 95
--- NOTE | 2025-02-23 15:30 | P.NPUPN_ITS ---
Subjective NPU 2 Subjective: 44-year-old male with a history of polys ubstance abuse admitted with suicidal ideation and bizarre behavior under influence of methamphetamine. The patient had stated that he did not need to be here. He stated that he wished to go home. He had continued to report some concerns about feeling that other people had brought him in here inappropriately on allegations of masturbating in public that he that he mentally denied. The patient had stated that he had talked to his mom and that his mother wishes to have him home. He had stated that he had things to do at home. He had revealed that he was inside this body and then stopped elaborating regarding this information. He had stated that he works for the [employer]. Mental Status Exam 2 MSE Comments: This is a well-nourished, well-developed, white male in hospital scrubs with poor grooming and fleeting eye contact. He had evidence of oral motor movements. He was cooperative with exam in more distress. Speech was normal in productivity and decreased in rate, and normal in volume. Mood described as allright. His affect was subdued and odd. Thought process was mostly linear but superficial. Thought content: patient denied any suicidal or homicidal ideation. He was more paranoid and hostile today indicating he was working with the [employer]. He did appear to be responding to internal stimuli reporting something under his breath. He had continued evidence of poverty of content. Attention and concentration were poor. His recent and remote memory was poor. He is alert and oriented to person and place but not date or day of the week. Insight and judgment are impaired. Impulse control is impaired.? ? Vitals/I&O/Wt Last Vital Signs Temp 97.3 F L 02/23/25 14:00 Pulse 84 02/23/25 14:00 Resp 18 02/23/25 14:00 BP 107/72 02/23/25 14:00 Pulse Ox 95 02/23/25 14:00 O2 Del Method Room Air 02/23/25 06:00 Data NPU 02/15/25 15:08 02/15/25 15:08 A&P Assessment and plan (1) Psychosis: (2) Suicidal ideation: (3) Methamphetamine-induced psychotic disorder: (4) Methamphetamine use disorder, severe: Plan This is a 44-year-old white male with a long history of psychosis and active addiction including significant amphetamine use disorder severe and likely substance-induced psychosis. 1. Continue Abilify 20mg p.o. daily. Continue Prozac to 20mg daily. Increase B6 150mg bid for TD. 2. Continue every 15 minute checks for safety. 3. Encourage individual, group and milieu therapies. 4. Encourage sober living treatment after discharge at the highest level of care to which he is willing to commit. 5. DEL testing completed and showed that patient required help in 10/13 areas of focus regarding his ability to live independently. Patient may require court appointed guardianship. Will begin process after 21 day hold. Patient remains unable to care for self independently. Continues to have active legal problems. 21 day hold filed. PDMP PDMP Reviewed: Not Reviewed Involuntary Hold Information 2 Hold Status: Legal Status: 96 Hour Hold Date/Time Hold Expires: 02/22/24 @ 14:45 96 Hour Hold: 96 Hour Involuntary Admission: Yes Other Hold: Hold End Date: 08/30/24 Attestations NPU 2 Medical Necessity Statement*: Inpatient hospitalization is medically necessary, and the clinically appropriate intervention at this time. We will monitor/initiate medications and make changes as indicated. His likely length of stay may be greater than 2 weeks with guardianship planned. Coding Level of Care Code Acute Code for [facility] Fwd Diagnoses Psychosis F29 Suicidal ideation R45.851 Methamphetamine-induced psychotic disorder F15.959 Methamphetamine use disorder, severe F15.20
[2025-02-23] MEDS: pyridoxine 50 mg Tablet 150 MG PO (17:44)
[2025-02-23] MEDS: hyDROXYzine 25 mg Capsule 50 MG PO (17:46)
[2025-02-23 19:44] VITALS: BP 98/60; PULSE 77; RESP 18; TEMP 36.8; O2SAT 97
[2025-02-23] MEDS: trazodone 50 mg Tablet PO (20:22)
[2025-02-24 06:00] VITALS: BP 100/63; PULSE 69; RESP 18; O2SAT 96; BMI 28.7
[2025-02-24] MEDS: fluoxetine 20 mg Capsule PO (09:40)
[2025-02-24] MEDS: pyridoxine 50 mg Tablet 150 MG PO ×2 (09:40→18:26)
[2025-02-24] MEDS: ARIPiprazole 10 mg Tablet 20 MG PO (09:40)
[2025-02-24] MEDS: nicotine 21 mg Patch 1 PATCH TRANSDERMA (09:42)
--- NOTE | 2025-02-24 13:05 | P.NPUPN_ITS ---
Subjective NPU 2 Subjective: 44-year-old male with a history of polys ubstance abuse admitted with suicidal ideation and bizarre behavior under influence of methamphetamine. The patient stated that he still felt restless. He had spent much of the day lying in his bedroom. He had reported that he wished to go home but remained vague about any specific details regarding what he was doing. He had stated that he was helping around the house. He had reported that he had struggled with maintaining gainful employment. He had minimized any concerns about legal issues. He reported no feelings of hopelessness or worthlessness. He denied any depressed mood at this time. Mental Status Exam 2 MSE Comments: This is a well-nourished, well-developed, white male in hospital scrubs with poor grooming and fleeting eye contact. He was lying in bed. There was evidence of apathy and amotivation. He had evidence of oral motor movements. He was cooperative with exam in more distress. Speech was normal in productivity and decreased in rate, and normal in volume. Mood described as okay. His affect was subdued and odd. Thought process was mostly linear but superficial. Thought content: patient denied any suicidal or homicidal ideation. He was more paranoid and hostile today indicating he was working with the [employer]. He did continue to show evidence of paranoia He had continued evidence of poverty of content. Attention and concentration were poor. His recent and remote memory was poor. He is alert and oriented to person and place but not date or day of the week. Insight and judgment are impaired. Impulse control is impaired.? ? Vitals/I&O/Wt Last Vital Signs Temp 98.2 F 02/23/25 19:44 Pulse 69 02/24/25 06:00 Resp 18 02/24/25 06:00 BP 100/63 02/24/25 06:00 Pulse Ox 96 02/24/25 06:00 O2 Del Method Room Air 02/24/25 06:00 Weight last 48 hrs Weight 85.729 kg Data NPU 02/15/25 15:08 02/15/25 15:08 A&P Assessment and plan (1) Psychosis: (2) Suicidal ideation: (3) Methamphetamine-induced psychotic disorder: (4) Methamphetamine use disorder, severe: Plan This is a 44-year-old white male with a long history of psychosis and active addiction including significant amphetamine use disorder severe and likely substance-induced psychosis. 1. Continue Abilify 20mg p.o. daily. Continue Prozac to 20mg daily. Continue B6 150mg bid for TD. 2. Continue every 15 minute checks for safety. 3. Encourage individual, group and milieu therapies. 4. Encourage sober living treatment after discharge at the highest level of care to which he is willing to commit. 5. DEL testing completed and showed that patient required help in 10/13 areas of focus regarding his ability to live independently. Patient may require court appointed guardianship. Will begin process after 21 day hold. Patient remains unable to care for self independently. Continues to have active legal problems. 21 day hold filed. PDMP PDMP Reviewed: Not Reviewed Involuntary Hold Information 2 Hold Status: Legal Status: 96 Hour Hold Date/Time Hold Expires: 02/22/24 @ 14:45 96 Hour Hold: 96 Hour Involuntary Admission: Yes Other Hold: Hold End Date: 08/30/24 Attestations NPU 2 Medical Necessity Statement*: Inpatient hospitalization is medically necessary, and the clinically appropriate intervention at this time. We will monitor/initiate medications and make changes as indicated. His likely length of stay may be greater than 2 weeks with guardianship being considered. Coding Level of Care Code Acute Code for g Fwd Diagnoses Psychosis F29 Suicidal ideation R45.851 Methamphetamine-induced psychotic disorder F15.959 Methamphetamine use disorder, severe F15.20
[2025-02-24 14:00] VITALS: BP 94/63; PULSE 85; RESP 18; TEMP 37; O2SAT 95
[2025-02-24] MEDS: hyDROXYzine 25 mg Capsule 50 MG PO ×3 (14:09→21:42)
[2025-02-24 19:43] VITALS: BP 102/59; PULSE 96; RESP 18; TEMP 36.6; O2SAT 96
[2025-02-24] MEDS: trazodone 50 mg Tablet PO (21:42)
[2025-02-25 06:00] VITALS: BP 96/65; PULSE 69; RESP 18; TEMP 36.9; O2SAT 96
[2025-02-25] MEDS: fluoxetine 20 mg Capsule PO (08:18)
[2025-02-25] MEDS: ARIPiprazole 10 mg Tablet 20 MG PO (08:18)
[2025-02-25] MEDS: pyridoxine 50 mg Tablet 150 MG PO ×2 (08:18→17:29)
--- NOTE | 2025-02-25 09:07 | PC.NURSE ---
Pt states that he slept ok. Anxiety and depression rated a 5/10. No reports of SI/HI or hallucinations. No pain reported. Pt was calm and cooperative during assessment.
[2025-02-25] MEDS: nicotine 21 mg Patch 1 PATCH TRANSDERMA (13:14)
[2025-02-25] MEDS: hyDROXYzine 25 mg Capsule 50 MG PO ×2 (13:58→21:00)
[2025-02-25 14:00] VITALS: BP 119/82; PULSE 83; RESP 18; TEMP 36.7; O2SAT 98
--- NOTE | 2025-02-25 17:52 | P.NPUPN_ITS ---
Subjective NPU 2 Subjective: 44-year-old male with a history of polys ubstance abuse admitted with suicidal ideation and bizarre behavior under influence of methamphetamine. The patient had been more active on the milieu. He reported that he was feeling better. He had been agreeable to continuing his stay here and did not attend court. He reported that he would be allowed to go home. He had described having significant decline in functioning for many years that appeared to be worsened by his continued methamphetamine use. He had reported desire to return home as soon as possible but was unable to elaborate as to what he would be doing at home. He had reported that he had helped his mother out at home. Mental Status Exam 2 MSE Comments: This is a well-nourished, well-developed, white male in hospital scrubs with poor grooming and fleeting eye contact. There was a positive improvement in psychomotor activity as he was walking around the unit today. There was continued struggles with apathy. He had evidence of mild oral involuntary motor movements. He was cooperative with exam in more distress. Speech was normal in productivity and decreased in rate, and normal in volume. Mood described as allright. His affect was subdued and odd. Thought process was mostly linear but superficial. Thought content: patient denied any suicidal or homicidal ideation. He was less paranoid but remained guarded. No overt delusions evinced. He did continue to show evidence of paranoia He had continued evidence of poverty of content. Attention and concentration were poor. His recent and remote memory was poor. He is alert and oriented to person and place but not date or day of the week. Insight and judgment are impaired. Impulse control is impaired.? ? Vitals/I&O/Wt Last Vital Signs Temp 98.0 F 02/25/25 14:00 Pulse 83 02/25/25 14:00 Resp 18 02/25/25 14:00 BP 119/82 02/25/25 14:00 Pulse Ox 98 02/25/25 14:00 O2 Del Method Room Air 02/25/25 14:00 Weight last 48 hrs Weight 85.729 kg Data NPU 02/15/25 15:08 02/15/25 15:08 A&P Assessment and plan (1) Psychosis: (2) Suicidal ideation: (3) Methamphetamine-induced psychotic disorder: (4) Methamphetamine use disorder, severe: Plan This is a 44-year-old white male with a long history of psychosis and active addiction including significant amphetamine use disorder severe and likely substance-induced psychosis. 1. Continue Abilify 20mg p.o. daily. Continue Prozac to 20mg daily. Continue B6 150mg bid for TD. 2. Continue every 15 minute checks for safety. 3. Encourage individual, group and milieu therapies. 4. Encourage sober living treatment after discharge at the highest level of care to which he is willing to commit. 5. DEL testing completed and showed that patient required help in 10/13 areas of focus regarding his ability to live independently. Patient may require court appointed guardianship. Patient now on 21 day hold. Patient remains unable to care for self independently. Continues to have active legal problems. 21 day hold filed. PDMP PDMP Reviewed: Not Reviewed Involuntary Hold Information 2 Hold Status: Legal Status: 96 Hour Hold Date/Time Hold Expires: 02/22/24 @ 14:45 96 Hour Hold: 96 Hour Involuntary Admission: Yes Other Hold: Hold End Date: 08/30/24 Attestations NPU 2 Medical Necessity Statement*: Inpatient hospitalization is medically necessary, and the clinically appropriate intervention at this time. We will monitor/initiate medications and make changes as indicated. His likely length of stay may be 7-10 days. Coding Level of Care Code Acute Code for [facility] Fwd Diagnoses Psychosis F29 Suicidal ideation R45.851 Methamphetamine-induced psychotic disorder F15.959 Methamphetamine use disorder, severe F15.20
[2025-02-25 20:12] VITALS: BP 118/76; PULSE 103; RESP 16; TEMP 36.7; O2SAT 96
[2025-02-25] MEDS: trazodone 50 mg Tablet PO (20:59)
[2025-02-25] MEDS: OLANZapine 5 mg ODT PO (21:00)
[2025-02-26 06:00] VITALS: BP 102/59; PULSE 80; RESP 16; TEMP 36.7; O2SAT 94
[2025-02-26] MEDS: ARIPiprazole 10 mg Tablet 20 MG PO (08:21)
[2025-02-26] MEDS: pyridoxine 50 mg Tablet 150 MG PO (08:22)
[2025-02-26] MEDS: fluoxetine 20 mg Capsule PO (08:22)
--- NOTE | 2025-02-26 09:43 | PC.NURSE ---
Pt states that he slept good last night. He rates his anxiety and depression a 5/10. No reports of SI/HI or hallucinations. No pain reported. He is calm and cooperative on assessment.
[2025-02-26] MEDS: nicotine 21 mg Patch 1 PATCH TRANSDERMA (10:19)
[2025-02-26 14:00] VITALS: BP 122/89; PULSE 82; RESP 17; TEMP 36.4; O2SAT 95
[2025-02-26] MEDS: hyDROXYzine 25 mg Capsule 50 MG PO ×2 (14:03→20:27)
--- NOTE | 2025-02-26 14:31 | W.PM.NPUPNS ---
Subjective NPU Subjective: 44-year-old male with a history of polysubstance abuse admitted with suicidal ideation and bizarre behavior under influence of methamphetamine. Patient was placed on a 21-day hold. He had had some visitors today from the outpatient clinic including his former manager case management. He had endorsed a loss of interest over the past few years. He had reported that he was feeling a little bit better. He reported improved energy today. He had been far less isolative on the milieu. He had expressed desire to return home to help his mother. He had described having some difficulties with his mother but stated that he wanted to help her at home. The patient denied any suicidal thoughts. He did report having some depression. He had endorsed some feelings of guilt but denied any suicidal thoughts. Mental Status Exam MSE Comments: This is a well-nourished, well-developed, white male in hospital scrubs with improved grooming and improved eye contact. He was more interactive and communicative today with decreased apathy appreciated. He had evidence of mild oral involuntary motor movements. He was cooperative with exam in less distress today. Speech was normal in productivity and more normal in rate, and normal in volume. Mood described as a little better. His affect was restricted but less subdued. Thought process was more linear and logical. Thought content: patient denied any suicidal or homicidal ideation. He was less paranoid today. No overt delusions evinced. Attention and concentration appeared better. His recent and remote memory was improving. He is alert and oriented to person and place but not date or day of the week. Insight and judgment are impaired. Impulse control is better. ? Vitals/I&O/Wt Last Vital Signs Temp 98.0 F 02/26/25 06:00 Pulse 80 02/26/25 06:00 Resp 16 02/26/25 06:00 BP 102/59 02/26/25 06:00 Pulse Ox 94 02/26/25 06:00 O2 Del Method Room Air 02/26/25 06:00 Data NPU 02/15/25 15:08 02/15/25 15:08 A&P Assessment and plan (1) Methamphetamine-induced psychotic disorder: (2) Psychosis: (3) Suicidal ideation: (4) Methamphetamine use disorder, severe: Plan This is a 44-year-old white male with a long history of psychosis and active addiction including significant amphetamine use disorder severe and likely substance-induced psychosis. 1. Continue Abilify 20mg p.o. daily. Continue Prozac to 20mg daily. Increae B6 200mg bid for TD. 2. Continue every 15 minute checks for safety. 3. Encourage individual, group and milieu therapies. 4. Encourage sober living treatment after discharge at the highest level of care to which he is willing to commit. 5. DEL testing completed and showed that patient required help in 10/13 areas of focus regarding his ability to live independently. Patient may require court appointed guardianship. Patient now on 21 day hold. Patient remains unable to care for self independently. Patient on 21 day hold, He appears improved today. Hopeful that inpatient substance abuse treatment could be an option. PDMP PDMP Reviewed: Not Reviewed Involuntary Hold Information Hold Status: Legal Status: 96 Hour Hold Date/Time Hold Expires: 02/22/24 @ 14:45 96 Hour Hold: 96 Hour Involuntary Admission: Yes Other Hold: Hold End Date: 08/30/24 Attestations NPU Medical Necessity Statement*: Inpatient hospitalization is medically necessary, and the clinically appropriate intervention at this time. We will monitor/initiate medications and make changes as indicated. His likely length of stay may be 7-10 days. Coding Level of Care Code Acute Code for [facility] Fwd Diagnoses Methamphetamine-induced psychotic disorder F15.959 Psychosis F29 Suicidal ideation R45.851 Methamphetamine use disorder, severe F15.20
[2025-02-26] MEDS: pyridoxine 50 mg Tablet 200 MG PO (17:16)
[2025-02-26] MEDS: acetaminophen 325 mg Tablet 650 MG PO (17:42)
[2025-02-26 20:21] VITALS: BP 100/59; PULSE 80; RESP 17; TEMP 36.8; O2SAT 95
[2025-02-26] MEDS: trazodone 50 mg Tablet PO (20:27)
[2025-02-27 06:00] VITALS: BP 103/68; PULSE 82; RESP 16; TEMP 36.8; O2SAT 94
[2025-02-27] MEDS: ARIPiprazole 10 mg Tablet 20 MG PO (08:58)
[2025-02-27] MEDS: fluoxetine 20 mg Capsule PO (08:58)
[2025-02-27] MEDS: pyridoxine 50 mg Tablet 200 MG PO ×2 (08:59→17:16)
[2025-02-27] MEDS: nicotine 21 mg Patch 1 PATCH TRANSDERMA (09:56)
[2025-02-27] MEDS: hyDROXYzine 25 mg Capsule 50 MG PO ×2 (11:49→20:44)
[2025-02-27 14:00] VITALS: BP 125/76; PULSE 89; TEMP 37.3; O2SAT 96
[2025-02-27] MEDS: acetaminophen 325 mg Tablet 650 MG PO (15:43)
--- NOTE | 2025-02-27 15:46 | P.NPUPN_ITS ---
Subjective NPU 2 Subjective: 44-year-old male with a history of polys ubstance abuse admitted with suicidal ideation and bizarre behavior under influence of methamphetamine. The patient reported that when he was ready he wished to return home. Patient had reported that his previous therapist through [facility] had visited him yesterday. Patient had informed the technical proposal writer that guardianship was being pursued by the legal system in [place] as he had been found to be incompetent to stand trial. He had continued to hesitate about the possibility of going to an inpatient substance abuse treatment despite several people feeling that it may be helpful as he had continued to show evidence of an inability to remain sober in his current living situation. He had minimized the effects that methamphetamine had on him causing him significant problems with his disorganized thinking, disorganized behavior, and hallucinations. Patient was able to attend groups. He reported no side effects from his medication regimen. He reported being less bothered by his mouth movements with the increase in vitamin B6. Mental Status Exam 2 MSE Comments: This is a well-nourished, well-developed, white male in hospital scrubs with improved grooming and improved eye contact. He was more interactive and communicative today with decreased apathy appreciated. He had minimal evidence of oral involuntary motor movements. He was cooperative with exam in less distress today. Speech was normal in productivity and more normal in rate, and normal in volume. Mood described as okay. His affect remained restricted. Thought process was more linear and logical. Thought content: patient denied any suicidal or homicidal ideation. He was less paranoid today. No overt delusions evinced. Attention and concentration appeared better. His recent and remote memory was improving. He is alert and oriented to person and place but not date or day of the week. Insight and judgment are impaired. Impulse control is better. ? Vitals/I&O/Wt Last Vital Signs Temp 99.2 F 02/27/25 14:00 Pulse 89 02/27/25 14:00 Resp 16 02/27/25 06:00 BP 125/76 02/27/25 14:00 Pulse Ox 96 02/27/25 14:00 O2 Del Method Room Air 02/27/25 14:00 Data NPU 02/15/25 15:08 02/15/25 15:08 A&P Assessment and plan (1) Methamphetamine-induced psychotic disorder: (2) Psychosis: (3) Suicidal ideation: (4) Methamphetamine use disorder, severe: Plan This is a 44-year-old white male with a long history of psychosis and active addiction including significant amphetamine use disorder severe and likely substance-induced psychosis. 1. Continue Abilify 20mg p.o. daily. Continue Prozac to 20mg daily. Continue B6 200mg bid for TD. 2. Continue every 15 minute checks for safety. 3. Encourage individual, group and milieu therapies. 4. Encourage sober living treatment after discharge at the highest level of care to which he is willing to commit. 5. DEL testing completed and showed that patient required help in 10/13 areas of focus regarding his ability to live independently. Patient may require court appointed guardianship. Patient now on 21 day hold. Patient remains unable to care for self independently. Patient on 21 day hold, He appears improved today. Hopeful that inpatient substance abuse treatment could be an option. PDMP PDMP Reviewed: Not Reviewed Involuntary Hold Information 2 Hold Status: Legal Status: 21 Day Hold Date/Time Hold Expires: 03/18/25 96 Hour Hold: 96 Hour Involuntary Admission: Yes Other Hold: Hold End Date: 08/30/24 Attestations NPU 2 Medical Necessity Statement*: Inpatient hospitalization is medically necessary, and the clinically appropriate intervention at this time. We will monitor/initiate medications and make changes as indicated. His likely length of stay may be 7-10 days. Coding Level of Care Code Acute Code for [facility] Fwd Diagnoses Methamphetamine-induced psychotic disorder F15.959 Psychosis F29 Suicidal ideation R45.851 Methamphetamine use disorder, severe F15.20
[2025-02-27 19:56] VITALS: BP 110/70; PULSE 82; RESP 16; TEMP 37; O2SAT 96
[2025-02-27] MEDS: trazodone 50 mg Tablet PO (20:44)
[2025-02-28 06:00] VITALS: BP 99/64; PULSE 80; RESP 18; TEMP 36.7; O2SAT 95
[2025-02-28] MEDS: ARIPiprazole 10 mg Tablet 20 MG PO (09:38)
[2025-02-28] MEDS: pyridoxine 50 mg Tablet 200 MG PO ×2 (09:38→18:20)
[2025-02-28] MEDS: fluoxetine 20 mg Capsule PO (09:39)
[2025-02-28] MEDS: nicotine 21 mg Patch 1 PATCH TRANSDERMA (10:53)
[2025-02-28] MEDS: hyDROXYzine 25 mg Capsule 50 MG PO ×2 (13:49→22:20)
[2025-02-28 14:00] VITALS: BP 138/89; PULSE 99; RESP 18; TEMP 36.5; O2SAT 95
--- NOTE | 2025-02-28 14:02 | P.NPUPN_ITS ---
Subjective NPU 2 Subjective: 44-year-old male with a history of polys ubstance abuse admitted with suicidal ideation and bizarre behavior under influence of methamphetamine. The patient remained hesitant about the idea of going to inpatient substance abuse treatment and stated that he had spoken with the behavioral health clinic through [facility] and stated that they would may be agreeable to having the patient be evaluated 3 times a week on an outpatient basis and lieu of inpatient substance treatment. He had reported that he was feeling better. He had been more interactive and more engaging on the unit. He had denied any hallucinations at this time. He had reported that his mood was better. He appeared to show evidence of improved self-care. He had reported that his sleep had been better. He had minimized any cravings for methamphetamine. He had acknowledged that his mother did have some difficulties with controlling his behavior but still stated that he wanted to return to live with her and to be discharged soon. Mental Status Exam 2 MSE Comments: This is a well-nourished, well-developed, white male in hospital scrubs with improved grooming and improved eye contact. He was more interactive and communicative today with decreased apathy appreciated. He had minimal evidence of any abnormal involuntary motor movements. He was cooperative with exam in mild distress only. Speech was normal in productivity and more normal in rate, and normal in volume. Mood described as good. His affect was less restricted. Thought process was more linear and logical. Thought content: patient denied any suicidal or homicidal ideation There was less overt paranoia appreciated. No overt delusions evinced. Attention and concentration appeared better. His recent and remote memory was improving. He is alert and oriented to person and place and time. Insight was poor and judgment is improving. Impulse control is better. ? Vitals/I&O/Wt Last Vital Signs Temp 98.1 F 02/28/25 06:00 Pulse 80 02/28/25 06:00 Resp 18 02/28/25 06:00 BP 99/64 02/28/25 06:00 Pulse Ox 95 02/28/25 06:00 O2 Del Method Room Air 02/28/25 06:00 Data NPU 02/15/25 15:08 02/15/25 15:08 A&P Assessment and plan (1) Methamphetamine-induced psychotic disorder: (2) Psychosis: (3) Suicidal ideation: (4) Methamphetamine use disorder, severe: Plan This is a 44-year-old white male with a long history of psychosis and active addiction including significant amphetamine use disorder severe and likely substance-induced psychosis. 1. Continue Abilify 20mg p.o. daily. Continue Prozac to 20mg daily. Continue B6 200mg bid for TD. 2. Continue every 15 minute checks for safety. 3. Encourage individual, group and milieu therapies. 4. Encourage sober living treatment after discharge at the highest level of care to which he is willing to commit. 5. DEL testing completed and showed that patient required help in 10/13 areas of focus regarding his ability to live independently. Patient may require court appointed guardianship. Patient now on 21 day hold. Patient remains unable to care for self independently. Patient on 21 day hold, He appears improved today. Hopeful that inpatient substance abuse treatment could be an option. PDMP PDMP Reviewed: Not Reviewed Involuntary Hold Information 2 Hold Status: Legal Status: 21 Day Hold Date/Time Hold Expires: 03/18/25 96 Hour Hold: 96 Hour Involuntary Admission: Yes Other Hold: Hold End Date: 08/30/24 Attestations NPU 2 Medical Necessity Statement*: Inpatient hospitalization is medically necessary, and the clinically appropriate intervention at this time. We will monitor/initiate medications and make changes as indicated. His likely length of stay may be 7-10 days. Coding Level of Care Code Acute Code for [facility] Diagnoses Methamphetamine-induced psychotic disorder F15.959 Psychosis F29 Suicidal ideation R45.851 Methamphetamine use disorder, severe F15.20
[2025-02-28 21:18] VITALS: BP 96/61; PULSE 77; RESP 16; TEMP 36.7; O2SAT 95
[2025-02-28] MEDS: trazodone 50 mg Tablet PO (22:20)
[2025-03-01 06:00] VITALS: BP 118/79; PULSE 82; RESP 16; TEMP 36.6; O2SAT 97
[2025-03-01] MEDS: fluoxetine 20 mg Capsule PO (08:36)
[2025-03-01] MEDS: ARIPiprazole 10 mg Tablet 20 MG PO (08:36)
[2025-03-01] MEDS: nicotine 21 mg Patch 1 PATCH TRANSDERMA (08:36)
--- NOTE | 2025-03-01 10:32 | P.NPUPN_ITS ---
Subjective NPU 2 Subjective: Patient presented today reporting that things are going much better. He identified that no issues remained. However as we talked about him and drug and alcohol treatment and him reportedly having court ordered rehab he denied that that was true. We discussed working with the social work team to figure out what his actual situation is and we discussed the possibility of discharge next week if there was not a court ordered circumstance. He denied any side effects to the medication. Mental Status Exam 2 MSE Comments: This is a well-nourished, well-developed, white male in hospital scrubs with improved grooming and improved eye contact. He was more interactive and communicative today with decreased apathy appreciated. He had minimal evidence of any abnormal involuntary motor movements. He was cooperative with exam in mild distress only. Speech was normal in productivity and more normal in rate, and normal in volume. Mood described as good. His affect was less restricted. Thought process was more linear and logical. Thought content: patient denied any suicidal or homicidal ideation There was less overt paranoia appreciated. No overt delusions evident. Attention and concentration appeared better. His recent and remote memory was improving. He is alert and oriented to person and place and time. Insight was poor and judgment is improving. Impulse control is better. Vitals/I&O/Wt Last Vital Signs Temp 97.8 F 03/01/25 06:00 Pulse 82 03/01/25 06:00 Resp 16 03/01/25 06:00 BP 118/79 03/01/25 06:00 Pulse Ox 97 03/01/25 06:00 O2 Del Method Room Air 03/01/25 06:00 Data NPU 02/15/25 15:08 02/15/25 15:08 A&P Assessment and plan (1) Methamphetamine-induced psychotic disorder: (2) Psychosis: (3) Suicidal ideation: (4) Methamphetamine use disorder, severe: Plan This is a 44-year-old white male with a long history of psychosis and active addiction including significant amphetamine use disorder severe and likely substance-induced psychosis. 1. Continue Abilify 20mg p.o. daily. Continue Prozac to 20mg daily. Continue B6 200mg bid for TD. 2. Continue every 15 minute checks for safety. 3. Encourage individual, group and milieu therapies. 4. Encourage sober living treatment after discharge at the highest level of care to which he is willing to commit. 5. DEL testing completed and showed that patient required help in 10/13 areas of focus regarding his ability to live independently. Patient may require court appointed guardianship. Patient now on 21 day hold. Patient remains unable to care for self independently. Patient on 21 day hold, He appears improved today. Hopeful that inpatient substance abuse treatment could be an option. PDMP PDMP Reviewed: Not Reviewed Involuntary Hold Information 2 Hold Status: Legal Status: Hold Date/Time Hold Expires: 03/18/25 96 Hour Hold: 96 Hour Involuntary Admission: Yes Other Hold: Hold End Date: 08/30/24 Attestations NPU 2 Medical Necessity Statement*: Inpatient hospitalization is medically necessary, and the clinically appropriate intervention at this time. We will monitor/initiate medications and make changes as indicated. His likely length of stay may be 6-9 days. Coding Level of Care Code Acute Code for Chg Fwd Diagnoses Methamphetamine-induced psychotic disorder F15.959 Psychosis F29 Suicidal ideation R45.851 Methamphetamine use disorder, severe F15.20
[2025-03-01] MEDS: pyridoxine 50 mg Tablet 200 MG PO ×2 (10:57→17:28)
[2025-03-01] MEDS: hyDROXYzine 25 mg Capsule 50 MG PO ×2 (13:40→19:50)
[2025-03-01 14:00] VITALS: BP 121/86; PULSE 73; RESP 18; TEMP 36.6; O2SAT 96
[2025-03-01] MEDS: trazodone 50 mg Tablet PO (19:50)
[2025-03-01 20:43] VITALS: BP 109/66; PULSE 72; RESP 18; TEMP 37.2; O2SAT 95
[2025-03-02 06:00] VITALS: BP 106/59; PULSE 75; RESP 17; TEMP 36.5; O2SAT 99
--- NOTE | 2025-03-02 07:57 | P.NPUPN_ITS ---
Subjective NPU 2 Subjective: Patient presented today reporting that things are unchanged. He is very focused on discharging him reporting that he will engage in outpatient services. He continues to deny that there is a specific need for inpatient services or that there is an order from the court for him to do so. We continue to report working on clarity on that on Tuesday. He denies any side effects to this medication. Mental Status Exam 2 MSE Comments: This is a well-nourished, well-developed, white male in hospital scrubs with improved grooming and improved eye contact. He was more interactive and communicative today with decreased apathy appreciated. He had minimal evidence of any abnormal involuntary motor movements. He was cooperative with exam in mild distress only. Speech was normal in productivity and more normal in rate, and normal in volume. Mood described as good. His affect was less restricted. Thought process was more linear and logical. Thought content: patient denied any suicidal or homicidal ideation There was less overt paranoia appreciated. No overt delusions evident. Attention and concentration appeared better. His recent and remote memory was improving. He is alert and oriented to person and place and time. Insight was poor and judgment is improving. Impulse control is better. Vitals/I&O/Wt Last Vital Signs Temp 97.7 F 03/02/25 06:00 Pulse 75 03/02/25 06:00 Resp 17 03/02/25 06:00 BP 106/59 03/02/25 06:00 Pulse Ox 99 03/02/25 06:00 O2 Del Method Room Air 03/02/25 06:00 Data NPU 02/15/25 15:08 02/15/25 15:08 A&P Assessment and plan (1) Methamphetamine-induced psychotic disorder: (2) Psychosis: (3) Suicidal ideation: (4) Methamphetamine use disorder, severe: Plan This is a 44-year-old white male with a long history of psychosis and active addiction including significant amphetamine use disorder severe and likely substance-induced psychosis. 1. Continue Abilify 20mg p.o. daily. Continue Prozac to 20mg daily. Continue B6 200mg bid for TD. 2. Continue every 15 minute checks for safety. 3. Encourage individual, group and milieu therapies. 4. Encourage sober living treatment after discharge at the highest level of care to which he is willing to commit. 5. DEL testing completed and showed that patient required help in 10/13 areas of focus regarding his ability to live independently. Patient may require court appointed guardianship. Patient now on 21 day hold. Patient remains unable to care for self independently. Patient on 21 day hold, He appears improved today. Hopeful that inpatient substance abuse treatment could be an option. PDMP PDMP Reviewed: Not Reviewed Involuntary Hold Information 2 Hold Status: Legal Status: 21 Day Hold Date/Time Hold Expires: 03/18/25 96 Hour Hold: 96 Hour Involuntary Admission: Yes Other Hold: Hold End Date: 08/30/24 Attestations NPU 2 Medical Necessity Statement*: Inpatient hospitalization is medically necessary, and the clinically appropriate intervention at this time. We will monitor/initiate medications and make changes as indicated. His likely length of stay may be 5-8 days. Coding Level of Care Code Acute Code for [facility]sig Fwd Diagnoses Methamphetamine-induced psychotic disorder F15.959 Psychosis F29 Suicidal ideation R45.851 Methamphetamine use disorder, severe F15.20
[2025-03-02] MEDS: ARIPiprazole 10 mg Tablet 20 MG PO (08:39)
[2025-03-02] MEDS: hyDROXYzine 25 mg Capsule 50 MG PO ×2 (08:39→15:57)
[2025-03-02] MEDS: fluoxetine 20 mg Capsule PO (08:39)
[2025-03-02] MEDS: nicotine 21 mg Patch 1 PATCH TRANSDERMA (10:45)
[2025-03-02] MEDS: pyridoxine 50 mg Tablet 200 MG PO ×2 (10:46→18:29)
[2025-03-02 14:00] VITALS: BP 93/60; PULSE 72; RESP 17; TEMP 36.6; O2SAT 95
[2025-03-02 19:35] VITALS: BMI 28.3
[2025-03-02] MEDS: trazodone 50 mg Tablet PO (20:03)
[2025-03-02 20:15] VITALS: BP 97/63; PULSE 79; RESP 16; TEMP 36.8; O2SAT 94
[2025-03-03 06:00] VITALS: BP 98/62; PULSE 75; RESP 16; TEMP 37.1; O2SAT 94
--- NOTE | 2025-03-03 08:58 | P.NPUPN_ITS ---
Subjective NPU 2 Subjective: Patient presented today reporting that things are going okay. We agreed we would work with the social work team tomorrow to determine what the situation actually is with him and a court order. He is adamant that there is no court order for him to do anything and that he is willing to do outpatient services but not inpatient services. We agreed to make decisions on his discharge after we have that information. He denies side effects of medication. Mental Status Exam 2 MSE Comments: This is a well-nourished, well-developed, white male in hospital scrubs with improved grooming and improved eye contact. He was more interactive and communicative today with decreased apathy appreciated. He had minimal evidence of any abnormal involuntary motor movements. He was cooperative with exam in mild distress only. Speech was normal in productivity and more normal in rate, and normal in volume. Mood described as good. His affect was less restricted. Thought process was more linear and logical. Thought content: patient denied any suicidal or homicidal ideation There was less overt paranoia appreciated. No overt delusions evident. Attention and concentration appeared better. His recent and remote memory was improving. He is alert and oriented to person and place and time. Insight was poor and judgment is improving. Impulse control is better. Vitals/I&O/Wt Last Vital Signs Temp 98.8 F 03/03/25 06:00 Pulse 75 03/03/25 06:00 Resp 16 03/03/25 06:00 BP 98/62 03/03/25 06:00 Pulse Ox 94 03/03/25 06:00 O2 Del Method Room Air 03/03/25 06:00 Weight last 48 hrs Weight 84.595 kg Data NPU 02/15/25 15:08 02/15/25 15:08 A&P Assessment and plan (1) Methamphetamine-induced psychotic disorder: (2) Psychosis: (3) Suicidal ideation: (4) Methamphetamine use disorder, severe: Plan This is a 44-year-old white male with a long history of psychosis and active addiction including significant amphetamine use disorder severe and likely substance-induced psychosis. 1. Continue Abilify 20mg p.o. daily. Continue Prozac to 20mg daily. Continue B6 200mg bid for TD. 2. Continue every 15 minute checks for safety. 3. Encourage individual, group and milieu therapies. 4. Encourage sober living treatment after discharge at the highest level of care to which he is willing to commit. 5. DEL testing completed and showed that patient required help in 10/13 areas of focus regarding his ability to live independently. Patient may require court appointed guardianship. Patient now on 21 day hold. Patient remains unable to care for self independently. Patient on 21 day hold, He appears improved today. Hopeful that inpatient substance abuse treatment could be an option. PDMP PDMP Reviewed: Not Reviewed Involuntary Hold Information 2 Hold Status: Legal Status: 21 Day Hold Date/Time Hold Expires: 03/18/25 96 Hour Hold: 96 Hour Involuntary Admission: Yes Other Hold: Hold End Date: 08/30/24 Attestations NPU 2 Medical Necessity Statement*: Inpatient hospitalization is medically necessary, and the clinically appropriate intervention at this time. We will monitor/initiate medications and make changes as indicated. His likely length of stay may be 5-8 days. Coding Level of Care Code Acute Code for g Fwd Diagnoses Methamphetamine-induced psychotic disorder F15.959 Psychosis F29 Suicidal ideation R45.851 Methamphetamine use disorder, severe F15.20
[2025-03-03] MEDS: nicotine 21 mg Patch 1 PATCH TRANSDERMA (09:38)
[2025-03-03] MEDS: hyDROXYzine 25 mg Capsule 50 MG PO (09:38)
[2025-03-03] MEDS: pyridoxine 50 mg Tablet 200 MG PO ×2 (09:38→17:35)
[2025-03-03] MEDS: fluoxetine 20 mg Capsule PO (09:38)
[2025-03-03] MEDS: ARIPiprazole 10 mg Tablet 20 MG PO (09:38)
[2025-03-03 14:00] VITALS: BP 120/82; PULSE 90; RESP 18; TEMP 36.5; O2SAT 93
[2025-03-03 20:37] VITALS: BP 95/62; PULSE 75; RESP 17; TEMP 37.2; O2SAT 99
[2025-03-03] MEDS: OLANZapine 5 mg ODT PO (20:49)
[2025-03-03] MEDS: trazodone 50 mg Tablet PO (20:49)
[2025-03-04 06:00] VITALS: BP 108/68; PULSE 79; RESP 16; TEMP 37.1; O2SAT 94
[2025-03-04] MEDS: ARIPiprazole 10 mg Tablet 20 MG PO (09:00)
[2025-03-04] MEDS: fluoxetine 20 mg Capsule PO (09:00)
[2025-03-04] MEDS: pyridoxine 50 mg Tablet 200 MG PO ×2 (09:00→18:54)
[2025-03-04] MEDS: nicotine 21 mg Patch 1 PATCH TRANSDERMA (10:43)
[2025-03-04 14:00] VITALS: BP 118/87; PULSE 84; RESP 16; TEMP 37.1; O2SAT 95
--- NOTE | 2025-03-04 14:35 | P.NPUPN_ITS ---
Subjective NPU 2 Subjective: Patient presented today reporting things are going fine. He continues to show improvement per staff reports and direct observation. We continue to discuss having some sober living treatment to which he is reporting and openness to outpatient services but we discussed the waiting the report from the court as far as if he is mandated to do inpatient services. He denied any side effects of his medication. Mental Status Exam 2 MSE Comments: This is a well-nourished, well-developed, white male in hospital scrubs with improved grooming and improved eye contact. He was more interactive and communicative today with decreased apathy appreciated. He had minimal evidence of any abnormal involuntary motor movements. He was cooperative with exam in mild distress only. Speech was normal in productivity and more normal in rate, and normal in volume. Mood described as good. His affect was less restricted. Thought process was more linear and logical. Thought content: patient denied any suicidal or homicidal ideation There was less overt paranoia appreciated. No overt delusions evident. Attention and concentration appeared better. His recent and remote memory was improving. He is alert and oriented to person and place and time. Insight was poor and judgment is improving. Impulse control is better. Vitals/I&O/Wt Last Vital Signs Temp 98.7 F 03/04/25 14:00 Pulse 84 03/04/25 14:00 Resp 16 03/04/25 14:00 BP 118/87 03/04/25 14:00 Pulse Ox 95 03/04/25 14:00 O2 Del Method Room Air 03/04/25 14:00 Weight last 48 hrs Weight 84.595 kg Data NPU 02/15/25 15:08 02/15/25 15:08 A&P Assessment and plan (1) Methamphetamine-induced psychotic disorder: (2) Psychosis: (3) Suicidal ideation: (4) Methamphetamine use disorder, severe: Plan This is a 44-year-old white male with a long history of psychosis and active addiction including significant amphetamine use disorder severe and likely substance-induced psychosis. 1. Continue Abilify 20mg p.o. daily. Continue Prozac to 20mg daily. Continue B6 200mg bid for TD. 2. Continue every 15 minute checks for safety. 3. Encourage individual, group and milieu therapies. 4. Encourage sober living treatment after discharge at the highest level of care to which he is willing to commit. 5. DEL testing completed and showed that patient required help in 10/13 areas of focus regarding his ability to live independently. Patient may require court appointed guardianship. Patient now on 21 day hold. Patient remains unable to care for self independently. Patient on 21 day hold, He appears improved today. Hopeful that inpatient substance abuse treatment could be an option. PDMP PDMP Reviewed: Not Reviewed Involuntary Hold Information 2 Hold Status: Legal Status: 21 Day Hold Date/Time Hold Expires: 03/18/25 96 Hour Hold: 96 Hour Involuntary Admission: Yes Other Hold: Hold End Date: 08/30/24 Attestations NPU 2 Medical Necessity Statement*: Inpatient hospitalization is medically necessary, and the clinically appropriate intervention at this time. We will monitor/initiate medications and make changes as indicated. His likely length of stay may be 4-7 days. Coding Level of Care Code Acute Code for Chg Fwd Diagnoses Methamphetamine-induced psychotic disorder F15.959 Psychosis F29 Suicidal ideation R45.851 Methamphetamine use disorder, severe F15.20
[2025-03-04] MEDS: OLANZapine 5 mg ODT PO (15:06)
[2025-03-04 20:08] VITALS: RESP 16
[2025-03-04] MEDS: trazodone 50 mg Tablet PO (20:32)
[2025-03-04] MEDS: hyDROXYzine 25 mg Capsule 50 MG PO (20:32)
[2025-03-05 06:00] VITALS: BP 95/61; PULSE 72; RESP 16; O2SAT 95
[2025-03-05] MEDS: fluoxetine 20 mg Capsule PO (08:34)
[2025-03-05] MEDS: ARIPiprazole 10 mg Tablet 20 MG PO (08:34)
[2025-03-05] MEDS: pyridoxine 50 mg Tablet 200 MG PO ×2 (08:34→17:34)
[2025-03-05] MEDS: nicotine 21 mg Patch 1 PATCH TRANSDERMA (08:34)
[2025-03-05 13:36] VITALS: BP 107/69; PULSE 79; RESP 16; TEMP 36.8
[2025-03-05] MEDS: hyDROXYzine 25 mg Capsule 50 MG PO ×2 (14:30→19:22)
[2025-03-05] MEDS: acetaminophen 325 mg Tablet 650 MG PO (16:48)
[2025-03-05 19:17] VITALS: BP 122/86; PULSE 95; RESP 18; TEMP 37.1; O2SAT 95
[2025-03-05] MEDS: ibuprofen 600 mg Tablet PO (19:21)
[2025-03-05] MEDS: trazodone 50 mg Tablet PO (19:22)
--- NOTE | 2025-03-05 20:03 | P.NPUPN_ITS ---
Subjective NPU 2 Subjective: Patient presented today reporting that things are going fine. We discussed the possibility of discharge tomorrow if he has a better score on DEL and he has no word from court that he has mandatory treatment. He reports the medication is working and we discussed what it was going to take for him to make a significant change in regards to his addiction pattern. He denied any side effects of the medication. Mental Status Exam 2 MSE Comments: This is a well-nourished, well-developed, white male in hospital scrubs with improved grooming and improved eye contact. He was more interactive and communicative today with decreased apathy appreciated. He had minimal evidence of any abnormal involuntary motor movements. He was cooperative with exam in mild distress only. Speech was normal in productivity and more normal in rate, and normal in volume. Mood described as good. His affect was less restricted. Thought process was more linear and logical. Thought content: patient denied any suicidal or homicidal ideation There was less overt paranoia appreciated. No overt delusions evident. Attention and concentration appeared better. His recent and remote memory was improving. He is alert and oriented to person and place and time. Insight was poor and judgment is improving. Impulse control is better. Vitals/I&O/Wt Last Vital Signs Temp 98.8 F 03/05/25 19:17 Pulse 95 03/05/25 19:17 Resp 18 03/05/25 19:17 BP 122/86 03/05/25 19:17 Pulse Ox 95 03/05/25 19:17 O2 Del Method Room Air 03/05/25 13:36 Data NPU 02/15/25 15:08 02/15/25 15:08 A&P Assessment and plan (1) Methamphetamine-induced psychotic disorder: (2) Psychosis: (3) Suicidal ideation: (4) Methamphetamine use disorder, severe: Plan This is a 44-year-old white male with a long history of psychosis and active addiction including significant amphetamine use disorder severe and likely substance-induced psychosis. 1. Continue Abilify 20mg p.o. daily. Continue Prozac to 20mg daily. Continue B6 200mg bid for TD. 2. Continue every 15 minute checks for safety. 3. Encourage individual, group and milieu therapies. 4. Encourage sober living treatment after discharge at the highest level of care to which he is willing to commit. 5. DEL testing completed and showed that patient required help in 10/13 areas of focus regarding his ability to live independently. Patient may require court appointed guardianship. Patient now on 21 day hold. Patient remains unable to care for self independently. Patient on 21 day hold, He appears improved today. Hopeful that inpatient substance abuse treatment could be an option. Repeat DEL and consider discharge tomorrow if score is fine and there is no word from court about mandatory treatment. PDMP PDMP Reviewed: Not Reviewed Involuntary Hold Information 2 Hold Status: Legal Status: 21 Day Hold Date/Time Hold Expires: 03/18/25 96 Hour Hold: 96 Hour Involuntary Admission: Yes Other Hold: Hold End Date: 08/30/24 Attestations NPU 2 Medical Necessity Statement*: Inpatient hospitalization is medically necessary, and the clinically appropriate intervention at this time. We will monitor/initiate medications and make changes as indicated. His likely length of stay may be 1-2 days. Coding Level of Care Code Acute Code for [facility] Fwd Diagnoses Methamphetamine-induced psychotic disorder F15.959 Psychosis F29 Suicidal ideation R45.851 Methamphetamine use disorder, severe F15.20
[2025-03-06 06:00] VITALS: BP 104/69; PULSE 63; RESP 16; O2SAT 96
[2025-03-06] MEDS: ARIPiprazole 10 mg Tablet 20 MG PO (08:26)
[2025-03-06] MEDS: nicotine 21 mg Patch 1 PATCH TRANSDERMA (08:26)
[2025-03-06] MEDS: fluoxetine 20 mg Capsule PO (08:26)
[2025-03-06] MEDS: pyridoxine 50 mg Tablet 200 MG PO (08:26)
--- NOTE | 2025-03-06 12:52 | P.NPUDS_ITS ---
Diagnoses at Discharge Discharge Diagnosis (1) Methamphetamine-induced psychotic disorder: Status: Resolved (2) Psychosis: Status: Resolved Permanent problem details: Psychosis w severe cognitive distortion and deficit in reality testing. (3) Suicidal ideation: Status: Resolved (4) Methamphetamine use disorder, severe: Status: Inactive Reason for Visit Reason for Visit: 96 Involuntary Hold Information Hold Status: Legal Status: 21 Day Hold Date/Time Hold Expires: 03/18/25 96 Hour Hold: 96 Hour Involuntary Admission: Yes Other Hold: Hold End Date: 08/30/24 Discharge Data Studies Completed and Pending: Laboratory Results WBC 7.57 10^3/uL (3.2 9-11.43) 02/15/25 15:08 RBC 4.51 10^6/uL (3.8 5-5.65) 02/15/25 15:08 Hgb 14.00 g/dL (11.27 -16.99) 02/15/25 15:08 Hct 42.1 % (37-53) 02/15/25 15:08 MCV 93.3 fl (82-101) 02/15/25 15:08 MCH 31.0 pg (27-33) 02/15/25 15:08 MCHC 33.3 g/dL (30-55) 02/15/25 15:08 RDW 12.9 % (12.1-15.1 ) 02/15/25 15:08 Plt Count 268 10^3/cmm (157 -399) 02/15/25 15:08 MPV 10.4 fL (7.4-10.4 ) 02/15/25 15:08 Neut % (Auto) 63.2 % 02/15/25 15:08 Lymph % (Auto) 26.8 % 02/15/25 15:08 [place] % (Auto) 7.0 % 02/15/25 15:08 Eos % (Auto) 1.7 % 02/15/25 15:08 Baso % (Auto) 1.2 % 02/15/25 15:08 Neut # (Auto) 4.78 10^3/uL (1.8 -7.7) 02/15/25 15:08 Lymph # (Auto) 2.0 10^3/uL (0.8- 4.8) 02/15/25 15:08 [place] # (Auto) 0.5 10^3/uL (0.2- 0.9) 02/15/25 15:08 Eos # (Auto) 0.1 10^3/uL (0.0- 0.8) 02/15/25 15:08 Baso # (Auto) 0.1 10^3/uL (0.0- 0.1) 02/15/25 15:08 Nucleated RBC % (a uto) 0 % 02/15/25 15:08 Nucleated RBCs # 0.0 /100WBC 02/15/25 15:08 Sodium 139 mmol/L (136-1 45) 02/15/25 15:08 Potassium 3.0 mmol/L (3.5-5 .1) L 02/15/25 15:08 Chloride 101 mmol/L (98-10 7) 02/15/25 15:08 Carbon Dioxide 23 mmol/L (22-29) 02/15/25 15:08 Anion Gap 18.0 (5-19) 02/15/25 15:08 BUN 14 mg/dL (6-20) 02/15/25 15:08 Creatinine 1.1 mg/dL (0.7-1. 2) 02/15/25 15:08 GFR Calculation 72.4 mL/min (90-1 30) L 02/15/25 15:08 Glucose 113 mg/dL (65-115 ) 02/15/25 15:08 Calculated Osmolal ity 289 mOsm/kg (285- 295) 02/15/25 15:08 Calcium 9.0 mg/dL (8.5-10 .5) 02/15/25 15:08 Total Bilirubin 0.5 mg/dL (0.15-1 .2) 02/15/25 15:08 AST 19 U/L (0-40) 02/15/25 15:08 ALT 21 U/L (0-41) 02/15/25 15:08 Alkaline Phosphata se 104 U/L (40-130) 02/15/25 15:08 Total Protein 7.4 g/dL (6.6-8.7 ) 02/15/25 15:08 Albumin 4.1 g/dL (3.5-5.2 ) 02/15/25 15:08 Globulin 3.3 g/dL (1.3-4.6 ) 02/15/25 15:08 Salicylates < 0.3 mg/dL (3-10 ) L 02/15/25 15:08 Urine Opiates Scre en Negative ng/mL (N egative) 02/16/25 12:40 Acetaminophen < 5.0 ug/mL (10-3 0) L 02/15/25 15:08 Ur Barbiturates Sc reen Negative ng/mL (N egative) 02/16/25 12:40 Ur Phencyclidine S crn Negative ng/mL (N egative) 02/16/25 12:40 Ur Amphetamines Sc reen Positive ng/mL (N egative) H 02/16/25 12:40 U Benzodiazepines Scrn Positive ng/mL (N egative) H 02/16/25 12:40 Urine Cocaine Scre en Negative ng/mL (N egative) 02/16/25 12:40 U Marijuana (THC) Screen Positive ng/mL (N egative) H 02/16/25 12:40 Ethyl Alcohol < 10 mg/dL (0-10) 02/15/25 15:08 Vitals: Last Vital Signs Temp 98.8 F 03/05/25 19:17 Pulse 63 03/06/25 06:00 Resp 16 03/06/25 06:00 BP 104/69 03/06/25 06:00 Pulse Ox 96 03/06/25 06:00 O2 Del Method Room Air 03/05/25 13:36 Discharge Plan Discharge Patient Disposition: Home Condition: Stable Prescriptions: New trazodone 50 mg Tablet 50 mg PO BEDTIME PRN (Reason: Sleep) 30 Days Qty: 30 1RF pyridoxine (vitamin B6) 50 mg Tablet 200 mg PO BID Qty: 30 0RF fluoxetine 20 mg Capsule 20 mg PO DAILY 30 Days Qty: 30 1RF aripiprazole 10 mg Tablet 20 mg PO DAILY 30 Days Qty: 60 1RF Rx Instructions: can give 20 mg tab instead Continued hydroxyzine pamoate 50 mg capsule 50 mg PO TID PRN (Reason: anxiety) Qty: 90 2RF [place] 6 mg tablet 6 mg PO .morning Qty: 30 1RF Discontinued buspirone 10 mg tablet 10 mg PO TID Qty: 90 3RF aripiprazole [Abilify] 10 mg tablet 10 mg PO .morning Qty: 30 3RF fluoxetine 10 mg capsule 10 mg PO .morning Qty: 30 3RF Discharge Orders: Discharge Order (Routine); Ordered 03/06/25 Ordered By: Oracio Senior Referrals: [facility] [Outside] - 03/11/25 8:00 am Referral Note: [facility] assessment with Erin Holm after hospital discharge Susana Reynolds, PMHNP [Staff Physician, Psychiatry] Referral Note: Ariel Bui, DO [Primary Care Provider, Family Practice] Discharge Diet: Regular Discharge Activity: Resume usual activity Patient Instructions: Opioid Safety Discharge Attestations NPU Status at Discharge: Cognitive status at discharge: cognitively intact , Behavioral status at discharge: can be uncooperative , Coding Level of Care Code Acute Code for g Fwd Diagnoses Methamphetamine-induced psychotic disorder F15.959 Psychosis F29 Suicidal ideation R45.851 Methamphetamine use disorder, severe F15.20
[2025-03-06] MEDS: ibuprofen 600 mg Tablet PO (13:29)
[2025-03-06 13:31] VITALS: BP 104/69; PULSE 63; RESP 16; O2SAT 96
== END 2025-03-06 13:45 | disposition home or self-care (01) | DRG 897 ==
LOC: ER 15:39 → NP 15:40
PROVIDERS: Admitting Provider Psychiatry & Neurology Psychiatry; Emergency Provider Emergency Medicine; PCP Family Medicine; Visit Provider Psychiatry & Neurology Psychiatry
DX: F15.259 Other stimulant dependence with stimulant-induced psychotic disorder, unspecified (principal); R45.851 Suicidal ideations; G24.01 Drug induced subacute dyskinesia; F32.9 Major depressive disorder, single episode, unspecified; F41.1 Generalized anxiety disorder; Z87.820 Personal history of traumatic brain injury
CPT/HCPCS: 36415; 80053; 80306; 80307; 85025; 96372; 97150; 97165; 97167; 99285; J2060; J9999

== ENCOUNTER 2025-07-15 21:48 | Inpatient (IN) | payer BC, MEDICAID, SELFPAY ==
[2025-03-11 10:15] VITALS: BP 134/94; BMI 26.8
[2025-07-15 21:50] VITALS: BP 155/120; PULSE 127; RESP 18; TEMP 37.2; O2SAT 95; BMI 28.8
--- NOTE | 2025-07-15 21:55 | W.ED.PSYCHS ---
HPI - Psych General: Stated Complaint: 96 hour hold Time Seen by Provider: 07/15/25 21:53 Related Data Previous Rx's ?Medication ?Instructions ?Recorded deutetrabenazine 9 mg tablet 9 mg PO BID #60 tabs 05/02/25 (Austedo) fluoxetine 40 mg capsule 40 mg PO QAM #30 caps 05/02/25 propranolol 10 mg tablet 10 mg PO TID #90 tabs 05/02/25 trazodone 50 mg tablet 50 mg PO BEDTIME PRN 05/02/25 Sleep/insomnia 30 days #60 tabs mirtazapine 15 mg tablet 15 mg PO BEDTIME #30 tabs 05/13/25 Allergies Allergy/AdvReac Type Severity Reaction Status Date / Time No Known Allergies Allergy Verified 05/30/25 10:10 [facility] ED PFS: Medical History (Updated 05/30/25 @ 10:44 by JAH Joel) Drug induced akathisia Tardive dyskinesia Managed with medication Austedo IR 9 mg BID Major depressive disorder, recurrent episode, moderate with anxious distress 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 Cannabis use disorder, moderate, dependence Generalized anxiety disorder Personal history of traumatic brain injury Nicotine dependence, cigarettes, uncomplicated Psychiatric care Surgical History No significant past surgical history Social History (Updated 05/30/25 @ 10:43 by JAH Joel) Smoking and tobacco/nicotine status: current every day tobacco/nicotine user cigarettes Packs smoked per day: 1 Alcohol intake: unknown Substance/Drug Use: current Substance/Drug use frequency: daily Other substance/drug use details: Episodic methamphetamine use, last use 04/29/25 Additional social history: Lives with his mother Household members: other Details: Mother Housing: House Discharge Plan Discharge Condition: Stable Prescriptions: No Action fluoxetine 40 mg capsule 40 mg PO QAM Qty: 30 3RF Rx Instructions: Take one capsule every morning Austedo 9 mg tablet 9 mg PO BID Qty: 60 3RF Rx Instructions: Take one tablet twice per day propranolol 10 mg tablet 10 mg PO TID Qty: 90 3RF Rx Instructions: Take one tablet three times per day trazodone 50 mg tablet 50 mg PO BEDTIME PRN (Reason: Sleep/insomnia) 30 Days Qty: 60 3RF Rx Instructions: May take two tablets at bedtime as needed for sleep mirtazapine 15 mg tablet 15 mg PO BEDTIME Qty: 30 3RF Rx Instructions: Take one tablet at bedtime Referrals: Ariel Bui DO [Primary Care Provider, Family Practice] Print Language: Urdu Coding Level of Care Code ED Time Checker for Jessika Adrian
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
--- NOTE | 2025-07-15 22:13 | ECG_ITS ---
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 Measurements Intervals Clarence Rate: 107 P: 24 IN: 151 QRS: 37 QRSD: 93 T: -1 QT: 342 QTc: 457 Interpretive Statements SINUS TACHYCARDIA ABNORMAL RHYTHM ECG Compared to ECG 08/23/2024 17:23:57 T-wave abnormality no longer present Electronically Signed On 07-18-2025 08:46:52 CDT by Linus Perez M.D. [email or web address]
[2025-07-15 22:26] LABS: Hematocrit 44.2 % (37-53); Hemoglobin 15.00 g/dL (11.27-16.99); Mean Corpuscular HGB Conc 33.9 g/dL (30-55); Mean Corpuscular Hemoglobin 30.5 pg (27-33); Mean Corpuscular Volume 90.0 fl (82-101); Nucleated Red Blood Cells % 0 %; Platelet Count 268 10^3/cmm (157-399); Red Blood Count 4.91 10^6/uL (3.85-5.65); White Blood Count 10.25 10^3/uL (3.29-11.43)
[2025-07-15 22:40] LABS: Troponin(5th) Baseline < 6 ng/L (0-15)
[2025-07-15 22:49] LABS: Anion Gap 21.6 (5-19); Blood Urea Nitrogen 10 mg/dL (6-20); Calcium 9.1 mg/dL (8.5-10.5); Carbon Dioxide 22 mmol/L (22-29); Chloride 102 mmol/L (98-107); Creatinine Clr Calc Pharmacy 110.7061; Glucose 165 mg/dL (65-115); Lipase 15 U/L (13-60); Osmolality Calculated 297 mOsm/kg (285-295); Potassium 3.6 mmol/L (3.5-5.1); Sodium 142 mmol/L (136-145); Thyroid Stimulating Hormone 1.80 uIU/mL (0.27-4.20)
[2025-07-15 22:51] LABS: Acetaminophen < 5.0 ug/mL (10-30); Salicylate < 0.3 mg/dL (3-10)
--- NOTE | 2025-07-15 23:26 | PC.NURSE ---
96 [facility] Pt served with copy of 96 HH by this RN and security. Pt alert and oriented to place and situation. Pt much calmer who wrote the affidavit? This nurse told pt that copywriter is unsure of what took place outside of hospital. Pt responded My mother is a fucking bitch! My sister is too!
[2025-07-15 23:42] VITALS: BP 114/74; PULSE 102; RESP 16; O2SAT 96
[2025-07-15 23:52] LABS: CRP High Sensitivity Cardiac 0.460 mg/dL (0.0-0.3)
--- NOTE | 2025-07-16 00:10 | W.ED.PSYCHS ---
HPI - Psych General: Chief Complaint: Psychiatric Symptoms Stated Complaint: 96 hour hold Time Seen by Provider: 07/15/25 21:53 History of Present Illness: Patient is a 44-year-old male with past medical history of acute psychosis, substance use who presents to the ED with manic symptoms and by police under a 96-hour hold. Apparently he has not slept in 3 days, speaking very medically, not answering questions and unreliable history secondary to mental status on arrival. Related Data Previous Rx's ?Medication ?Instructions ?Recorded deutetrabenazine 9 mg tablet 9 mg PO BID #60 tabs 05/02/25 (Austedo) fluoxetine 40 mg capsule 40 mg PO QAM #30 caps 05/02/25 propranolol 10 mg tablet 10 mg PO TID #90 tabs 05/02/25 trazodone 50 mg tablet 50 mg PO BEDTIME PRN 05/02/25 Sleep/insomnia 30 days #60 tabs mirtazapine 15 mg tablet 15 mg PO BEDTIME #30 tabs 05/13/25 Allergies Allergy/AdvReac Type Severity Reaction Status Date / Time No Known Allergies Allergy Verified 05/30/25 10:10 Review of Systems General: Reports: ROS unobtainable due to mental status PFSH ED PFSH: Medical History (Updated 07/16/25 @ 05:37 by Laurent Hernandez DO) Drug induced akathisia Tardive dyskinesia Managed with medication Austedo IR 9 mg BID Major depressive disorder, recurrent episode, moderate with anxious distress 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 Cannabis use disorder, moderate, dependence Generalized anxiety disorder Personal history of traumatic brain injury Nicotine dependence, cigarettes, uncomplicated Psychiatric care Surgical History No significant past surgical history Social History (Updated 05/30/25 @ 10:43 by JAH Joel) Smoking and tobacco/nicotine status: current every day tobacco/nicotine user cigarettes Packs smoked per day: 1 Alcohol intake: unknown Substance/Drug Use: current Substance/Drug use frequency: daily Other substance/drug use details: Episodic methamphetamine use, last use 04/29/25 Additional social history: Lives with his mother Household members: other Details: Mother Housing: House Physical Exam Narrative: EXAM NARRATIVE: Patient arrives under police custody and appears agitated, tachycardic, repetitive pressured speech. Does not follow commands but speaking full sentences, symmetrically and spontaneously moving all 4 extremities. Pupils 4 mm and equal, reactive bilaterally. No diaphoresis. Sinus tachycardia, no murmurs, no lower extremity edema. Breathing comfortably on room air, saturating well, no adventitious lung sounds. Abdomen soft, nontender, nondistended. No signs of trauma to her extremities or trunk. GCS 14, speaking in pressured tangential speech and circular pattern. Course Reevaluation(s): Reevaluation #1: Patient sleepy but still awake after Geodon, not agitated, heart rate appropriately decreased, initial laboratory studies reassuring Vital Signs: Vital signs: Vital Signs Temperature 98.5 F 07/16/25 03:38 Pulse Rate 103 H 07/16/25 03:38 Respiratory Rate 17 07/16/25 03:38 Blood Pressure 133/86 07/16/25 03:38 Pulse Oximetry 91 07/16/25 03:38 Oxygen Delivery Me thod Room Air 07/16/25 03:38 MDM - Psych Medical Decision Making -ddx: Acute psychosis, drug ingestion, intoxication, withdrawal, schizophrenia, personality disorder, dehydration, electrolyte abnormality - Patient arrives agitated, fighting with staff, very tachycardic, with pressured and tangential speech, has had multiple visits of substance-induced psychosis, for the threat to himself and staff, IM Geodon ordered but no other immediate intervention needed. Will initiate ingestion workup and plan to consult psychiatry, frequent reevaluations of overall behavior and neurostatus especially with his tachycardia. - Patient remained with an improved mentation after his Geodon and no further repeat medications or restraints were needed. Relatively reassuring ED evaluation and so he was deemed medically cleared and admitted to the Neuropsych Unit for their further evaluation of his mental health, still pending his urinalysis and UDS, admitted in stable condition. Lab Data 07/15/25 22:10 07/15/25 22:10 Laboratory Results WBC 10.25 10^3/uL (3.29-11.43) 07/15/25 22:10 RBC 4.91 10^6/uL (3.85-5.65) 07/15/25 22:10 Hgb 15.00 g/dL (11.27-16.99) 07/15/25 22:10 Hct 44.2 % (37-53) 07/15/25 22:10 MCV 90.0 fl (82-101) 07/15/25 22:10 MCH 30.5 pg (27-33) 07/15/25 22:10 MCHC 33.9 g/dL (30-55) 07/15/25 22:10 RDW 13.9 % (12.1-15.1) 07/15/25 22:10 Plt Count 268 10^3/cmm (157-399) 07/15/25 22:10 MPV 10.4 fL (7.4-10.4) 07/15/25 22:10 Neut % (Auto) 73.4 % 07/15/25 22:10 Lymph % (Auto) 19.1 % 07/15/25 22:10 [place] % (Auto) 5.9 % 07/15/25 22:10 Eos % (Auto) 0.8 % 07/15/25 22:10 Baso % (Auto) 0.4 % 07/15/25 22:10 Neut # (Auto) 7.53 10^3/uL (1.8-7.7) 07/15/25 22:10 Lymph # (Auto) 2.0 10^3/uL (0.8-4.8) 07/15/25 22:10 [place] # (Auto) 0.6 10^3/uL (0.2-0.9) 07/15/25 22:10 Eos # (Auto) 0.1 10^3/uL (0.0-0.8) 07/15/25 22:10 Baso # (Auto) 0.0 10^3/uL (0.0-0.1) 07/15/25 22:10 Nucleated RBC % (auto) 0 % 07/15/25 22:10 Nucleated RBCs # 0.0 /100WBC 07/15/25 22:10 Sodium 142 mmol/L (136-145) 07/15/25 22:10 Potassium 3.6 mmol/L (3.5-5.1) 07/15/25 22:10 Chloride 102 mmol/L (98-107) 07/15/25 22:10 Carbon Dioxide 22 mmol/L (22-29) 07/15/25 22:10 Anion Gap 21.6 (5-19) H 07/15/25 22:10 BUN 10 mg/dL (6-20) 07/15/25 22:10 Creatinine 0.9 mg/dL (0.7-1.2) 07/15/25 22:10 GFR Calculation 91.3 mL/min (90-130) 07/15/25 22:10 Glucose 165 mg/dL (65-115) H 07/15/25 22:10 Calculated Osmolality 297 mOsm/kg (285-295) H 07/15/25 22:10 Calcium 9.1 mg/dL (8.5-10.5) 07/15/25 22:10 Ammonia Cancelled 07/15/25 22:10 Creatine Kinase 123 U/L (39-308) 07/15/25 22:10 Troponin T Baseline < 6 ng/L (0-15) 07/15/25 22:10 C-React Prot High Sens 0.460 mg/dL (0.0-0.3) H 07/15/25 22:10 Lipase 15 U/L (13-60) 07/15/25 22:10 TSH 1.80 uIU/mL (0.27-4.20) 07/15/25 22:10 Salicylates < 0.3 mg/dL (3-10) L 07/15/25 22:10 Acetaminophen < 5.0 ug/mL (10-30) L 07/15/25 22:10 No radiology studies performed this visit EKG Data EKG 1: I personally reviewed and interpreted this EKG as follows: EKG interpretation date: 07/15/25 Interpretation: Sinus tachycardia at 107 bpm, first-degree AV block, no bundle branch block, mildly prolonged QTc, no ST elevation or depression Computer generated interpretation: Sinus tachycardia 107 bpm, no ME, QRS, QTc prolongation, no ST elevation or depression Discharge Plan Discharge Patient Disposition: Admitted As Inpatient Admit Provider: Oracio Senior Clinical Impression: Acute psychosis, Other stimulant dependence with stimulant-induced mood disorder Condition: Stable Coding Level of Care Code ED Shearing Machine Operator for Jessika Adrian
[2025-07-16 03:32] VITALS: BP 118/76; PULSE 106; O2SAT 97
[2025-07-16 03:38] VITALS: BP 133/86; PULSE 103; RESP 17; TEMP 36.9; O2SAT 91
--- NOTE | 2025-07-16 04:22 | PC.ADMIT ---
[address] Admission Note: The patient,Jay Kramer,44 y/o, was given written information regarding hospital policies, unit procedures and contact persons. Patient's smoking status: current every day smoker. Vital Signs - 8 hr 07/15/25 21:50 07/15/25 23:42 07/16/25 03:32 Temperature 99.0 F Pulse Rate 127 H 102 H 106 H Respiratory Rate 18 16 Blood Pressure 155/120 114/74 118/76 Pulse Oximetry 95 96 97 Oxygen Delivery Method Room Air Room Air 07/16/25 03:38 Temperature 98.5 F Pulse Rate 103 H Respiratory Rate 17 Blood Pressure 133/86 Pulse Oximetry 91 Oxygen Delivery Method Room Air Pt had small read bumps on his back. No further skin conditions were noted.
[2025-07-16 06:00] VITALS: BP 118/65; PULSE 109; RESP 18; TEMP 37; O2SAT 94
--- NOTE | 2025-07-16 07:59 | PC.NURSE ---
Medications reconciled.
--- NOTE | 2025-07-16 08:53 | PC.NURSE ---
Urine collected this am and taken to lab
[2025-07-16 09:12] LABS: Glucose Urine UA Negative (Normal); Nitrate Urine Negative (Negative); Specific Gravity, Urine 1.018 (1.005-1.030)
[2025-07-16 09:18] LABS: Add Urine Microscopic? YES
[2025-07-16 09:33] LABS: PCP Screen Urine Negative (Negative)
[2025-07-16 13:55] VITALS: BP 142/98; PULSE 107; RESP 19; TEMP 37.3; O2SAT 96
--- NOTE | 2025-07-16 15:32 | W.PM.NPUH&PS ---
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 methamphetamine and possibly needs to be off of marijuana as well as this may be kindling episodes of macario or psychosis. 1. The patient will not be started back up on her his outpatient medications that he has been noncompliant with currently. His previous dose of Geodon was completely and wholly ineffective at treatment for any mood disorder or any psychosis. D/C Prozac, D/C Geodon, D/c mirtazapine for now. Will consider restarting Abilify, patient may require monthly Abilify IM shot or Invega IM. Consider Depakote for TBI/bipolar symptoms. 2. Continue every 15 minute checks for safety. 3. Encourage individual, group and milieu therapies. 4. Encourage sober living treatment after discharge at the highest level of care to which he is willing to commit. 5. DEL testing completed and showed that patient required help in 10/13 areas of focus regarding his ability to live independently. We may pursue guardianship now. PDMP PDMP Reviewed: Not Reviewed Involuntary Hold Information Hold Status: Legal Status: 96 Hour Hold Date/Time Hold Expires: 07/19/25 21:54 96 Hour Hold: 96 Hour Involuntary Admission: Yes Other Hold: Hold End Date: 08/30/24 Attestations NPU Medical Necessity Statement*: Inpatient hospitalization is medically necessary, and the clinically appropriate intervention at this time. We will monitor/initiate medications and make changes as indicated. He will be in the hospital for over two midnights. The patient's likely length of stay 10-14 days. 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
[2025-07-16 20:05] VITALS: BP 166/89; PULSE 88; RESP 16; TEMP 37.3; O2SAT 97
[2025-07-17 06:00] VITALS: BP 145/100; PULSE 92; RESP 18; TEMP 36.4; O2SAT 95
[2025-07-17 13:57] VITALS: BP 139/96; PULSE 131; RESP 17; TEMP 36.3; O2SAT 96
--- NOTE | 2025-07-17 16:11 | P.NPUPN_ITS ---
Subjective NPU 2 Subjective: 44-year-old male with a history of traum atic brain injury, methamphetamine abuse, and psychosis admitted with manic symptoms with a history of recent relapse on methamphetamine over the past week. He has continued to minimize having any current problems stating that he felt ready to go home. He continued to appear to struggle with managing his moods. He had minimized any need for inpatient substance abuse treatment. He had reported no feelings of hopelessness or worthlessness. He had reported that his sister had lied about the reason that he needed to be here as he had minimized any inappropriate behavior. Previous callus testing was reviewed and the patient had shown significant evidence of requiring constant supervision. He had reported that he needed to take care of his mother but minimized that he also needed to be taken care of given his problems with cognition and discontinued use of illicit substances particularly methamphetamine. Mental Status Exam 2 MSE Comments: This is a well-nourished, well-developed, white male in hospital scrubs with limited grooming and intermittent eye contact. His movements were hyperkinetic. He was cooperative with exam in moderate distress. Speech was increased in productivity and in rate, and normal in volume. Mood described as fine. His affect was irritable. Thought process was more perseverative regarding his need to leave the hospital. Thought content: patient denied any suicidal or homicidal ideation. There was paranoia appreciated. No overt delusions evinced. Attention and concentration appeared impaired. His recent and remote memory was selective. He is alert and oriented to person and place and time. Insight was poor and judgment is poor. Impulse control is poor. ? Vitals/I&O/Wt Last Vital Signs Temp 97.4 F L 07/17/25 13:57 Pulse 131 H 07/17/25 13:57 Resp 17 07/17/25 13:57 BP 139/96 07/17/25 13:57 Pulse Ox 96 07/17/25 13:57 O2 Del Method Room Air 07/17/25 06:00 Weight last 48 hrs Weight 86.183 kg Data NPU 07/15/25 22:10 07/15/25 22:10 A&P Assessment and plan 1. Methamphetamine-induced psychotic disorder: 2. Psychosis: 3. Suicidal ideation: 4. Methamphetamine use disorder, severe: 5. Bipolar affective, manic, unspec: 6. Other stimulant dependence with stimulant-induced mood disorder: Plan: This is a 44-year-old white male with a long history of psychosis and use of THC and Methamphetamine now presenting with macario. This junior copywriter believes that the patient needs to have a simplification of his medication regimen and it does become necessary for the patient to remain on antipsychotic. His problems with tar dive dyskinesia are likely worsened by the presence of the use of a stimulant such as methamphetamine. He needs to remain sober off of methamphetamine and possibly needs to be off of marijuana as well as this may be kindling episodes of macario or psychosis. 1. Initiate Depakote ER 1000mg in am for mood instability. Add low dose of latuda 20mg daily while monitoring for mood fluctuations. 2. Continue every 15 minute checks for safety. 3. Encourage individual, group and milieu therapies. 4. Encourage sober living treatment after discharge at the highest level of care to which he is willing to commit. 5. DEL testing completed and showed that patient required help in 10/13 areas of focus regarding his ability to live independently. We may pursue guardianship now. PDMP PDMP Reviewed: Not Reviewed Involuntary Hold Information 2 Hold Status: Legal Status: 96 Hour Hold Date/Time Hold Expires: 07/19/25 21:54 96 Hour Hold: 96 Hour Involuntary Admission: Yes Other Hold: Hold End Date: 08/30/24 Attestations NPU 2 Medical Necessity Statement*: Inpatient hospitalization is medically necessary, and the clinically appropriate intervention at this time. We will monitor/initiate medications and make changes as indicated. The patient's likely length of stay 10-14 days. 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
[2025-07-17 20:09] VITALS: BP 101/66; PULSE 92; RESP 18; TEMP 36.4; O2SAT 95
[2025-07-18 06:00] VITALS: BP 114/75; PULSE 83; RESP 18; TEMP 36.5; O2SAT 95
[2025-07-18] MEDS: divalproex ER 500 mg Tablet (24H) 1000 MG PO (08:18)
--- NOTE | 2025-07-18 13:47 | P.NPUPN_ITS ---
Subjective NPU 2 Subjective: 44-year-old male with a history of traum atic brain injury, methamphetamine abuse, and psychosis admitted with manic symptoms with a history of recent relapse on methamphetamine over the past week. Patient was volatile today he had expressed that he did not need any medications and that he had a place to go home. He had perseverated about having been sober until using methamphetamine again approximately 1 week ago. He had reported that his sister and mother continued to plot against him to have him hospitalized and expressed concern that they were trying to take away the property that he lived on. He had reported that he continued to feel frustrated. He had reported adequate sleep and stated that he did not need anything. He had refused any medications this morning. Mental Status Exam 2 MSE Comments: This is a well-nourished, well-developed, white male in hospital scrubs with limited grooming and intermittent eye contact. His movements were hyperkinetic. He was cooperative with exam in significant distress. Speech was increased in productivity and in rate, and variable in volume. Mood described as fine. His affect was agitated. Thought process was more perseverative regarding his need to leave the hospital. Thought content: patient denied any suicidal or homicidal ideation. There was paranoia appreciated. No overt delusions evinced. Attention and concentration appeared impaired. His recent and remote memory was selective. He is alert and oriented to person and place and time. Insight was poor and judgment is poor. Impulse control is poor. ? Vitals/I&O/Wt Last Vital Signs Temp 97.7 F 07/18/25 06:00 Pulse 83 07/18/25 06:00 Resp 18 07/18/25 06:00 BP 114/75 07/18/25 06:00 Pulse Ox 95 07/18/25 06:00 O2 Del Method Room Air 07/18/25 06:00 Data NPU 07/15/25 22:10 07/15/25 22:10 A&P Assessment and plan 1. Methamphetamine-induced psychotic disorder: 2. Psychosis: 3. Suicidal ideation: 4. Methamphetamine use disorder, severe: 5. Bipolar affective, manic, unspec: 6. Other stimulant dependence with stimulant-induced mood disorder: Plan: This is a 44-year-old white male with a long history of psychosis and use of THC and Methamphetamine now presenting with macario. This magazine writer believes that the patient needs to have a simplification of his medication regimen and it does become necessary for the patient to remain on antipsychotic. His problems with tar dive dyskinesia are likely worsened by the presence of the use of a stimulant such as methamphetamine. He needs to remain sober off of methamphetamine and possibly needs to be off of marijuana as well as this may be kindling episodes of macario or psychosis. 1. Encourage patient to take Depakote ER 1000mg in am for mood instability. Continue latuda 20mg daily while monitoring for mood fluctuations. Patient may require forced medications. 2. Continue every 15 minute checks for safety. 3. Encourage individual, group and milieu therapies. 4. Encourage sober living treatment after discharge at the highest level of care to which he is willing to commit. 5. DEL testing completed and showed that patient required help in 10/13 areas of focus regarding his ability to live independently. PDMP PDMP Reviewed: Not Reviewed Involuntary Hold Information 2 Hold Status: Legal Status: 96 Hour Hold Date/Time Hold Expires: 07/19/25 21:54 96 Hour Hold: 96 Hour Involuntary Admission: Yes Other Hold: Hold End Date: 08/30/24 Attestations NPU 2 Medical Necessity Statement*: Inpatient hospitalization is medically necessary, and the clinically appropriate intervention at this time. We will monitor/initiate medications and make changes as indicated. The patient's likely length of stay 10-14 days. 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
[2025-07-18 14:00] VITALS: BP 133/100; PULSE 108; RESP 17; O2SAT 92
[2025-07-18 20:12] VITALS: BP 101/62; PULSE 84; RESP 18; TEMP 37; O2SAT 95
[2025-07-19 06:00] VITALS: BP 105/71; PULSE 67; RESP 18; TEMP 36.9; O2SAT 96
[2025-07-19] MEDS: divalproex ER 500 mg Tablet (24H) 1000 MG PO (09:40)
[2025-07-19 14:00] VITALS: BP 153/96; PULSE 96; RESP 18; TEMP 36.9; O2SAT 98
--- NOTE | 2025-07-19 14:17 | P.NPUPN_ITS ---
Subjective NPU 2 Subjective: Patient presented today reporting that things are going all right. He reported that he does not need any assistance because after he was discharged the last time he was sober all the time except for that day that he used that led to the hospitalization. Reporting that 3+ months he maintained his sobriety and had no problems has a had 1 day of problems and now there is talk of him needing to be in the hospital which he reports is not accurate and he for discharge. We discussed concerns about his functioning given the DEL examination. He denied any side effects to his medication. Mental Status Exam 2 MSE Comments: This is a well-nourished, well-developed, white male in hospital scrubs with limited grooming and intermittent eye contact. His movements were hyperkinetic. He was cooperative with exam in significant distress. Speech was increased in productivity and in rate, and variable in volume. Mood described as fine. His affect was agitated. Thought process was more perseverative regarding his need to leave the hospital. Thought content: patient denied any suicidal or homicidal ideation. There was paranoia appreciated. No overt delusions evinced. Attention and concentration appeared impaired. His recent and remote memory was selective. He is alert and oriented to person and place and time. Insight was poor and judgment is poor. Impulse control is poor. ? Vitals/I&O/Wt Last Vital Signs Temp 98.4 F 07/19/25 06:00 Pulse 67 07/19/25 06:00 Resp 18 07/19/25 06:00 BP 105/71 07/19/25 06:00 Pulse Ox 96 07/19/25 06:00 O2 Del Method Room Air 07/19/25 06:00 Data NPU 07/15/25 22:10 07/15/25 22:10 A&P Assessment and plan 1. Methamphetamine-induced psychotic disorder: 2. Psychosis: 3. Suicidal ideation: 4. Methamphetamine use disorder, severe: 5. Bipolar affective, manic, unspec: 6. Other stimulant dependence with stimulant-induced mood disorder: Plan: This is a 44-year-old white male with a long history of psychosis and use of THC and Methamphetamine now presenting with macario. This telegraphic typewriter operator believes that the patient needs to have a simplification of his medication regimen and it does become necessary for the patient to remain on antipsychotic. His problems with tar dive dyskinesia are likely worsened by the presence of the use of a stimulant such as methamphetamine. He needs to remain sober off of methamphetamine and possibly needs to be off of marijuana as well as this may be kindling episodes of macario or psychosis. 1. Encourage patient to take Depakote ER 1000mg in am for mood instability. Continue latuda 20mg daily while monitoring for mood fluctuations. Patient may require forced medications. 2. Continue every 15 minute checks for safety. 3. Encourage individual, group and milieu therapies. 4. Encourage sober living treatment after discharge at the highest level of care to which he is willing to commit. 5. DEL testing completed and showed that patient required help in 10/ areas of focus regarding his ability to live independently. PDMP PDMP Reviewed: Not Reviewed Involuntary Hold Information 2 Hold Status: Legal Status: 96 Hour Hold Date/Time Hold Expires: 07/19/25 21:54 96 Hour Hold: 96 Hour Involuntary Admission: Yes Other Hold: Hold End Date: 08/30/24 Attestations NPU 2 Medical Necessity Statement*: Inpatient hospitalization is medically necessary, and the clinically appropriate intervention at this time. We will monitor/initiate medications and make changes as indicated. The patient's likely length of stay 10-14 days. 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
[2025-07-19 21:36] VITALS: BP 101/63; PULSE 88; RESP 17; TEMP 36.8; O2SAT 97
[2025-07-20 06:00] VITALS: BP 102/68; PULSE 77; RESP 17; O2SAT 94
[2025-07-20] MEDS: divalproex ER 500 mg Tablet (24H) 1000 MG PO (08:26)
--- NOTE | 2025-07-20 08:34 | PC.NURSE ---
Patient is isolating to his room. He is resistive to care this morning.He does not answer any of my assessment questions.He took his AM medication then rolled over and went back to sleep.
[2025-07-20 14:00] VITALS: BP 115/70; PULSE 74; RESP 16; TEMP 36.9; O2SAT 98
--- NOTE | 2025-07-20 15:40 | P.NPUPN_ITS ---
Subjective NPU 2 Subjective: Patient presented today reporting that he is doing fine and wants to go home. We discussed his evaluation thus far including his DEL examination which he does not recall that occurring. We discussed that that is although more reason that he needs to be here and is figure out what it will take to have improvement and safe discharge. He was quite upset and Engaging in conversation and hopes that the outcome would be discharge sooner rather than later. We discussed that his DEL suggested that he should not exist independently and he took great offense to that. He denied any side effects to medication but reports that the medication makes him feel worse. Mental Status Exam 2 MSE Comments: This is a well-nourished, well-developed, white male in hospital scrubs with limited grooming and intermittent eye contact. His movements were hyperkinetic. He was cooperative with exam in significant distress. Speech was increased in productivity and in rate, and variable in volume. Mood described as I want to go home, I do not understand why you guys think I need to be here. His affect was agitated. Thought process was more perseverative regarding his need to leave the hospital. Thought content: patient denied any suicidal or homicidal ideation. There was paranoia appreciated. No overt delusions evinced. Attention and concentration appeared impaired. His recent and remote memory was selective. He is alert and oriented to person and place and time. Insight was poor and judgment is poor. Impulse control is poor. ? Vitals/I&O/Wt Last Vital Signs Temp 98.4 F 07/20/25 14:00 Pulse 74 07/20/25 14:00 Resp 16 07/20/25 14:00 BP 115/70 07/20/25 14:00 Pulse Ox 98 07/20/25 14:00 O2 Del Method Room Air 07/20/25 14:00 Data NPU 07/15/25 22:10 07/15/25 22:10 A&P Assessment and plan 1. Methamphetamine-induced psychotic disorder: 2. Psychosis: 3. Suicidal ideation: 4. Methamphetamine use disorder, severe: 5. Bipolar affective, manic, unspec: 6. Other stimulant dependence with stimulant-induced mood disorder: Plan: This is a 44-year-old white male with a long history of psychosis and use of THC and Methamphetamine now presenting with macario. This information writer believes that the patient needs to have a simplification of his medication regimen and it does become necessary for the patient to remain on antipsychotic. His problems with tar dive dyskinesia are likely worsened by the presence of the use of a stimulant such as methamphetamine. He needs to remain sober off of methamphetamine and possibly needs to be off of marijuana as well as this may be kindling episodes of macario or psychosis. 1. Encourage patient to take Depakote ER 1000mg in am for mood instability. Continue latuda 20mg daily while monitoring for mood fluctuations. Patient may require forced medications. 2. Continue every 15 minute checks for safety. 3. Encourage individual, group and milieu therapies. 4. Encourage sober living treatment after discharge at the highest level of care to which he is willing to commit. 5. DEL testing completed and showed that patient required help in 10/13 areas of focus regarding his ability to live independently. PDMP PDMP Reviewed: Not Reviewed Involuntary Hold Information 2 Hold Status: Legal Status: 96 Hour Hold Date/Time Hold Expires: 07/19/25 21:54 96 Hour Hold: 96 Hour Involuntary Admission: Yes Other Hold: Hold End Date: 08/30/24 Attestations NPU 2 Medical Necessity Statement*: Inpatient hospitalization is medically necessary, and the clinically appropriate intervention at this time. We will monitor/initiate medications and make changes as indicated. The patient's likely length of stay 10-14 days. 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
[2025-07-20 21:47] VITALS: BP 148/94; PULSE 106; RESP 17; TEMP 37.1; O2SAT 99
--- NOTE | 2025-07-21 01:06 | PC.NURSE ---
15 minute rounding appears duplicate due to daylight savings from [id number]
[2025-07-21 06:00] VITALS: BP 108/74; PULSE 76; RESP 16; O2SAT 95; BMI 30.1
[2025-07-21] MEDS: divalproex ER 500 mg Tablet (24H) 1000 MG PO (08:49)
[2025-07-21 14:00] VITALS: BP 140/95; PULSE 102; RESP 18; TEMP 36.4; O2SAT 96
--- NOTE | 2025-07-21 17:24 | W.PM.NPUPNS ---
Subjective NPU Subjective: Patient presented today reporting that he is continuing to be upset about being here. He acknowledges that he had not done a DEL examination but records suggest that he did not do it this hospitalization but did it back in February. We discussed the risks, benefits and alternatives of him repeating that test and he understood and agreed to proceed as documented in this note. We discussed continued concerns about his ability for independent functioning. He continues to be quite upset about being in the hospital and feeling it was a punishment. He argued that he was not doing well because of being in the hospital not the other way around. He denied any side effects to his medication. Mental Status Exam MSE Comments: This is an overweight versus obese, white male in hospital scrubs with improved grooming and intense eye contact. He continued to have more intense and irritable interactions as he expressed frustration about being in the hospital and not believing he needed to be here. He had continued psychomotor agitation. He was somewhat cooperative with exam in moderate distress. Speech was normal in productivity and more normal in rate, and normal in volume but still with some increased rate but not pressured. Mood described as upset about being here. His affect was irritable. Thought process was more linear. Thought content: patient denied any suicidal or homicidal ideation There was less overt paranoia appreciated, but he continues to express feeling that people are essentially out to get him including this typewriter aligner. Attention and concentration appeared better. His recent and remote memory was improving. He is alert and oriented to person and place and time. Insight was poor and judgment is poor. Impulse control is limited. Vitals/I&O/Wt Last Vital Signs Temp 97.9 F 07/21/25 20:51 Pulse 83 07/21/25 20:51 Resp 18 07/21/25 20:51 BP 118/89 07/21/25 20:51 Pulse Ox 97 07/21/25 20:51 O2 Del Method Room Air 07/21/25 20:51 Weight last 48 hrs Weight 89.925 kg Data NPU 07/15/25 22:10 07/15/25 22:10 A&P Assessment and plan 1. Methamphetamine-induced psychotic disorder: 2. Psychosis: 3. Suicidal ideation: 4. Methamphetamine use disorder, severe: 5. Bipolar affective, manic, unspec: 6. Other stimulant dependence with stimulant-induced mood disorder: Plan: This is a 44-year-old white male with a long history of psychosis and use of THC and Methamphetamine now presenting with macario. This typewriter aligner believes that the patient needs to have a simplification of his medication regimen and it does become necessary for the patient to remain on antipsychotic. His problems with tar dive dyskinesia are likely worsened by the presence of the use of a stimulant such as methamphetamine. He needs to remain sober off of methamphetamine and possibly needs to be off of marijuana as well as this may be kindling episodes of macario or psychosis. 1. Encourage patient to take Depakote ER 1000mg in am for mood instability. Continue latuda 20mg daily while monitoring for mood fluctuations. Patient may require forced medications. 2. Continue every 15 minute checks for safety. 3. Encourage individual, group and milieu therapies. 4. Encourage sober living treatment after discharge at the highest level of care to which he is willing to commit. 5. DEL testing completed and showed that patient required help in 10/13 areas of focus regarding his ability to live independently. This happened during his February hospitalization will repeat this week. PDMP PDMP Reviewed: Not Reviewed Involuntary Hold Information Hold Status: Legal Status: 96 Hour Hold and 21 Day Hold Date/Time Hold Expires: 07/19/25 21:54 96 Hour Hold: 96 Hour Involuntary Admission: Yes Other Hold: Hold End Date: 08/30/24 Attestations NPU Medical Necessity Statement*: Inpatient hospitalization is medically necessary, and the clinically appropriate intervention at this time. We will monitor/initiate medications and make changes as indicated. The patient's likely length of stay 9-13 days. 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
[2025-07-21 20:51] VITALS: BP 118/89; PULSE 83; RESP 18; TEMP 36.6; O2SAT 97
[2025-07-22 06:00] VITALS: BP 120/73; PULSE 63; RESP 17; TEMP 36.6; O2SAT 97
[2025-07-22] MEDS: divalproex ER 500 mg Tablet (24H) 1000 MG PO (08:24)
--- NOTE | 2025-07-22 12:09 | PC.NURSE ---
verbal order from Dr. Senior to order Dee evaluation on pt.
--- NOTE | 2025-07-22 12:26 | P.NPUPN_ITS ---
Subjective NPU 2 Subjective: Patient presented today reporting that things were going fine. He identified and excepted the fact that he had taken the DEL examination and his last hospitalization and we discussed that the decisions that Dr. Randall were making are based on that study which has validity over long periods of time and usually is not something that is repeated but we discussed the risks, benefits and alternatives of repeating the examination given his reported decreased and active drug use which could explain a clarity of thought or kind of lifting of the fog that might have been present during that time given his use back then. We discussed using the information from the repeat DEL to consider his need for hospitalization and/or need for the 21-day hold for guardianship. He denied any side effects of medication. Mental Status Exam 2 MSE Comments: This is an overweight versus obese, white male in hospital scrubs with improved grooming and intense eye contact. He continued the intense and slightly less irritable interactions as he expressed frustration about being in the hospital and not believing he needed to be here. He had continued now mild psychomotor agitation. He was more cooperative with exam in mild to moderate distress. Speech was normal in productivity and more normal in rate, and normal in volume but still with some increased rate but not pressured. Mood described as upset about being here. His affect was irritable. Thought process was more linear. Thought content: patient denied any suicidal or homicidal ideation There was less overt paranoia appreciated, but he continues to express feeling that people are essentially out to get him including this typewriter ribbon winder. Attention and concentration appeared better. His recent and remote memory was improving. He is alert and oriented to person and place and time. Insight was limited but improving and judgment is limited. Impulse control is limited, but improving. Vitals/I&O/Wt Last Vital Signs Temp 97.9 F 07/22/25 06:00 Pulse 63 07/22/25 06:00 Resp 17 07/22/25 06:00 BP 120/73 07/22/25 06:00 Pulse Ox 97 07/22/25 06:00 O2 Del Method Room Air 07/22/25 06:00 Weight last 48 hrs Weight 89.925 kg Data NPU 07/15/25 22:10 07/15/25 22:10 A&P Assessment and plan 1. Methamphetamine-induced psychotic disorder: 2. Psychosis: 3. Suicidal ideation: 4. Methamphetamine use disorder, severe: 5. Bipolar affective, manic, unspec: 6. Other stimulant dependence with stimulant-induced mood disorder: Plan: This is a 44-year-old white male with a long history of psychosis and use of THC and Methamphetamine now presenting with macario. This typewriter ribbon winder believes that the patient needs to have a simplification of his medication regimen and it does become necessary for the patient to remain on antipsychotic. His problems with tar dive dyskinesia are likely worsened by the presence of the use of a stimulant such as methamphetamine. He needs to remain sober off of methamphetamine and possibly needs to be off of marijuana as well as this may be kindling episodes of macario or psychosis. 1. Encourage patient to take Depakote ER 1000mg in am for mood instability. Continue latuda 20mg daily while monitoring for mood fluctuations. Patient may require forced medications. 2. Continue every 15 minute checks for safety. 3. Encourage individual, group and milieu therapies. 4. Encourage sober living treatment after discharge at the highest level of care to which he is willing to commit. 5. DEL testing completed and showed that patient required help in 10/13 areas of focus regarding his ability to live independently. This happened during his February hospitalization will repeat this hopefully before his hearing tomorrow for a 21-day hold. PDMP PDMP Reviewed: Not Reviewed Involuntary Hold Information 2 Hold Status: Legal Status: 96 Hour Hold and 21 Day Hold Date/Time Hold Expires: 07/19/25 21:54 96 Hour Hold: 96 Hour Involuntary Admission: Yes Other Hold: Hold End Date: 08/30/24 Attestations NPU 2 Medical Necessity Statement*: Inpatient hospitalization is medically necessary, and the clinically appropriate intervention at this time. We will monitor/initiate medications and make changes as indicated. The patient's likely length of stay 8-10 days. Coding Level of Care Code Acute Code for [facility] Fwd Diagnoses Methamphetamine-induced psychotic disorder F15.959 Psychosis F29 Suicidal ideation R45.851 Methamphetamine use disorder, severe F15.20 Bipolar affective, manic, unspec F31.10 Other stimulant dependence with stimulant-induced mood disorder F15.24
[2025-07-22 14:00] VITALS: BP 131/92; PULSE 85; RESP 20; TEMP 36.4; O2SAT 96
[2025-07-22 19:38] VITALS: BP 104/66; PULSE 87; RESP 18; TEMP 36.9; O2SAT 95
[2025-07-23 06:00] VITALS: BP 102/63; PULSE 67; RESP 18; TEMP 36.6; O2SAT 95
[2025-07-23] MEDS: divalproex ER 500 mg Tablet (24H) 1000 MG PO (08:26)
--- NOTE | 2025-07-23 11:21 | P.NPUDS_ITS ---
Diagnoses at Discharge Discharge Diagnosis 1. Methamphetamine-induced psychotic disorder: 2. Psychosis: 3. Suicidal ideation: 4. Methamphetamine use disorder, severe: 5. Bipolar affective, manic, unspec: 6. Other stimulant dependence with stimulant-induced mood disorder: Reason for Visit Reason for Visit: 96 hour hold Involuntary Hold Information Hold Status: Legal Status: 96 Hour Hold and 21 Day Hold Date/Time Hold Expires: 07/19/25 21:54 96 Hour Hold: 96 Hour Involuntary Admission: Yes Other Hold: Hold End Date: 08/30/24 Mental Status Exam MSE Comments: This is an overweight versus obese, white male in hospital scrubs with improved grooming and intense eye contact. He continued the intense and slightly less irritable interactions as he expressed frustration about being in the hospital and not believing he needed to be here. He had continued now mild psychomotor agitation. He was more cooperative with exam in mild to moderate distress. Speech was normal in productivity and more normal in rate, and normal in volume but still with some increased rate but not pressured. Mood described as upset about being here. His affect was irritable. Thought process was more linear. Thought content: patient denied any suicidal or homicidal ideation There was less overt paranoia appreciated, but he continues to express feeling that people are essentially out to get him including this mortgage underwriter. Attention and concentration appeared better. His recent and remote memory was improving. He is alert and oriented to person and place and time. Insight was limited but improving and judgment is limited. Impulse control is limited, but improving. Discharge Data Studies Completed and Pending: Laboratory Results WBC 10.25 10^3/uL (3. 29-11.43) 07/15/25 22:10 RBC 4.91 10^6/uL (3.8 5-5.65) 07/15/25 22:10 Hgb 15.00 g/dL (11.27 -16.99) 07/15/25 22:10 Hct 44.2 % (37-53) 07/15/25 22:10 MCV 90.0 fl (82-101) 07/15/25 22:10 MCH 30.5 pg (27-33) 07/15/25 22:10 MCHC 33.9 g/dL (30-55) 07/15/25 22:10 RDW 13.9 % (12.1-15.1 ) 07/15/25 22:10 Plt Count 268 10^3/cmm (157 -399) 07/15/25 22:10 MPV 10.4 fL (7.4-10.4 ) 07/15/25 22:10 Neut % (Auto) 73.4 % 07/15/25 22:10 Lymph % (Auto) 19.1 % 07/15/25 22:10 Dent % (Auto) 5.9 % 07/15/25 22:10 Eos % (Auto) 0.8 % 07/15/25 22:10 Baso % (Auto) 0.4 % 07/15/25 22:10 Neut # (Auto) 7.53 10^3/uL (1.8 -7.7) 07/15/25 22:10 Lymph # (Auto) 2.0 10^3/uL (0.8- 4.8) 07/15/25 22:10 Dent # (Auto) 0.6 10^3/uL (0.2- 0.9) 07/15/25 22:10 Eos # (Auto) 0.1 10^3/uL (0.0- 0.8) 07/15/25 22:10 Baso # (Auto) 0.0 10^3/uL (0.0- 0.1) 07/15/25 22:10 Nucleated RBC % (a uto) 0 % 07/15/25 22:10 Nucleated RBCs # 0.0 /100WBC 07/15/25 22:10 Sodium 142 mmol/L (136-1 45) 07/15/25 22:10 Potassium 3.6 mmol/L (3.5-5 .1) 07/15/25 22:10 Chloride 102 mmol/L (98-10 7) 07/15/25 22:10 Carbon Dioxide 22 mmol/L (22-29) 07/15/25 22:10 Anion Gap 21.6 (5-19) H 07/15/25 22:10 BUN 10 mg/dL (6-20) 07/15/25 22:10 Creatinine 0.9 mg/dL (0.7-1. 2) 07/15/25 22:10 GFR Calculation 91.3 mL/min (90-1 30) 07/15/25 22:10 Glucose 165 mg/dL (65-115 ) H 07/15/25 22:10 Calculated Osmolal ity 297 mOsm/kg (285- 295) H 07/15/25 22:10 Calcium 9.1 mg/dL (8.5-10 .5) 07/15/25 22:10 Ammonia Cancelled 07/15/25 22:10 Creatine Kinase 123 U/L (39-308) 07/15/25 22:10 Troponin T Baselin e < 6 ng/L (0-15) 07/15/25 22:10 C-React Prot High Sens 0.460 mg/dL (0.0- 0.3) H 07/15/25 22:10 Lipase 15 U/L (13-60) 07/15/25 22:10 TSH 1.80 uIU/mL (0.27 -4.20) 07/15/25 22:10 Urine Color Yellow (Yellow) 07/16/25 08:50 Urine Appearance Clear (CLEAR) 07/16/25 08:50 Urine pH 8.0 (5-7) A 07/16/25 08:50 Ur Specific Gravit y 1.018 (1.005-1.0 30) 07/16/25 08:50 Urine Protein Negative (Negati ve) 07/16/25 08:50 Urine Glucose (UA) Negative (Normal ) 07/16/25 08:50 Urine Ketones Negative (Negati ve) 07/16/25 08:50 Urine Blood Negative (Negati ve) 07/16/25 08:50 Urine Nitrate Negative (Negati ve) 07/16/25 08:50 Urine Bilirubin Negative (Negati ve) 07/16/25 08:50 Urine Urobilinogen 1.0 mg/dL (Negati ve) 07/16/25 08:50 Ur Leukocyte Beverly ase Negative (Negati ve) 07/16/25 08:50 Urine RBC 0-2 /hpf (0-2) 07/16/25 08:50 Urine WBC 0-5 /hpf (0-5) 07/16/25 08:50 Ur Squamous Epith Cells 0-5 /hpf (0-5) 07/16/25 08:50 Amorphous Sediment Not Reportable 07/16/25 08:50 Urine Bacteria None seen /hpf (N ONE) 07/16/25 08:50 Hyaline Casts 0-4 /lpf H 07/16/25 08:50 Salicylates < 0.3 mg/dL (3-10 ) L 07/15/25 22:10 Urine Opiates Scre en Negative ng/mL (N egative) 07/16/25 08:50 Acetaminophen < 5.0 ug/mL (10-3 0) L 07/15/25 22:10 Ur Barbiturates Sc reen Negative ng/mL (N egative) 07/16/25 08:50 Ur Phencyclidine S crn Negative ng/mL (N egative) 07/16/25 08:50 Ur Amphetamines Sc reen Positive ng/mL (N egative) H 07/16/25 08:50 U Benzodiazepines Scrn Negative ng/mL (N egative) 07/16/25 08:50 Urine Cocaine Scre en Negative ng/mL (N egative) 07/16/25 08:50 U Marijuana (THC) Screen Positive ng/mL (N egative) H 07/16/25 08:50 Vitals: Last Vital Signs Temp 97.8 F 07/23/25 06:00 Pulse 67 07/23/25 06:00 Resp 18 07/23/25 06:00 BP 102/63 07/23/25 06:00 Pulse Ox 95 07/23/25 06:00 O2 Del Method Room Air 07/23/25 06:00 Discharge Plan Discharge Patient Disposition: Home Condition: Stable Prescriptions: New divalproex 500 mg Tablet Extended Release 24 Hr 1,000 mg PO DAILY 30 Days Qty: 60 1RF olanzapine 5 mg Tablet,Disintegrating 5 mg PO DAILY PRN (Reason: Agitation/Psychosis) 30 Days Qty: 30 1RF hydroxyzine pamoate 25 mg Capsule 50 mg PO Q6H PRN (Reason: Anxiety) 30 Days Qty: 120 1RF lurasidone [Latuda] 20 mg Tablet 20 mg PO 1800 30 Days Qty: 30 1RF Continued trazodone 50 mg tablet 50 mg PO BEDTIME PRN (Reason: Sleep/insomnia) 30 Days Qty: 60 1RF Rx Instructions: May take two tablets at bedtime as needed for sleep propranolol 10 mg tablet 10 mg PO TID Qty: 90 1RF Rx Instructions: Take one tablet three times per day Discontinued fluoxetine 40 mg capsule 40 mg PO QAM Qty: 30 3RF Rx Instructions: Take one capsule every morning Austedo 9 mg tablet 9 mg PO BID Qty: 60 3RF mirtazapine 15 mg tablet 15 mg PO BEDTIME Qty: 30 3RF Rx Instructions: Take one tablet at bedtime ziprasidone HCl 40 mg capsule 40 mg PO 1XD Discharge Order = DC NOW: Discharge Order (Routine); Ordered 07/23/25 Ordered By: Oracio Senior Referrals: Ariel Bui, [Primary Care Provider, Family Practice] Discharge Diet: Regular Discharge Activity: Resume usual activity Patient Instructions: Opioid Safety, Patient Portal & Jessica Instructions Discharge Attestations NPU Status at Discharge: Cognitive status at discharge: cognitively intact , Behavioral status at discharge: can be uncooperative , Coding Level of Care Code Acute Code for [facility] Fwd Diagnoses Methamphetamine-induced psychotic disorder F15.959 Psychosis F29 Suicidal ideation R45.851 Methamphetamine use disorder, severe F15.20 Bipolar affective, manic, unspec F31.10 Other stimulant dependence with stimulant-induced mood disorder F15.24
[2025-07-23 12:39] VITALS: BP 129/82; PULSE 99; RESP 16; TEMP 36.5; O2SAT 95
[2025-07-23 14:16] VITALS: BP 129/82; PULSE 99; RESP 16; TEMP 36.5; O2SAT 95
== END 2025-07-23 16:24 | disposition home or self-care (01) | DRG 776 ==
LOC: ER 07-16 00:29 → NP 07-16 03:04
PROVIDERS: Admitting Provider Psychiatry & Neurology Psychiatry; Emergency Provider Student in an Organized Health Care Education/Training Program; PCP Family Medicine; Visit Provider Psychiatry & Neurology Psychiatry
DX: F15.259 Other stimulant dependence with stimulant-induced psychotic disorder, unspecified (principal); R45.851 Suicidal ideations; F31.10 Bipolar disorder, current episode manic without psychotic features, unspecified; G24.01 Drug induced subacute dyskinesia; F17.210 Nicotine dependence, cigarettes, uncomplicated
CPT/HCPCS: 80048; 80306; 80307; 81001; 82550; 83690; 84443; 84484; 85025; 86141; 93005; 96360; 96372; 97150; 97165; 97167; 99285; J3486; J7120; J9999

== ENCOUNTER 2025-07-28 15:12 | Inpatient (IN) | payer BC, SELFPAY ==
[2025-03-11 10:15] VITALS: BP 134/94; BMI 26.8
[2025-07-28 15:13] VITALS: BMI 24.3
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
--- NOTE | 2025-07-28 15:21 | W.ED.PSYCHS ---
HPI - Psych General: Chief Complaint: Psychiatric Symptoms Stated Complaint: mhe Time Seen by Provider: 07/28/25 15:18 History of Present Illness: 44-year-old male presents emergency room [facility] department with acute psychosis. He is in a 96-hour hold he has a judges order that family had initiated. And route to the hospital with the [facility] department he made several suicidal thoughts was having auditory and visual hallucinations. He is clearly acutely psychotic on arrival here. He is verbally aggressive but has not made any physical aggression towards staff. He is very loud. He has a history of bipolar disease. He was released from an inpatient stay in the [facility] at our facility on 07/23/2025. He was on a 96-hour hold which had been extended to a 21-day hold. He states he has not been taking any of his medications. At time of discharge he was discharged home on valproic acid olanzapine hydroxyzine and Latuda. Related Data Previous Rx's ?Medication ?Instructions ?Recorded divalproex 500 mg tablet,extended 1,000 mg (2 x 500 mg) PO DAILY 30 07/23/25 release 24 hr days #60 tabs hydroxyzine pamoate 25 mg capsule 50 mg (2 x 25 mg) PO Q6H PRN 07/23/25 Anxiety 30 days #120 caps lurasidone 20 mg tablet (Latuda) 20 mg PO 1800 30 days #30 tabs 07/23/25 olanzapine 5 mg disintegrating 5 mg PO DAILY PRN 07/23/25 tablet Agitation/Psychosis 30 days #30 tabs propranolol 10 mg tablet 10 mg PO TID #90 tabs 07/23/25 trazodone 50 mg tablet 50 mg PO BEDTIME PRN 07/23/25 Sleep/insomnia 30 days #60 tabs Allergies Allergy/AdvReac Type Severity Reaction Status Date / Time No Known Allergies Allergy Verified 05/30/25 10:10 [facility] ED PFSH: Medical History (Updated 07/28/25 @ 17:19 by Ayad Salguero DO) Drug induced akathisia Tardive dyskinesia Managed with medication Austedo IR 9 mg BID Major depressive disorder, recurrent episode, moderate with anxious distress 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 Cannabis use disorder, moderate, dependence Generalized anxiety disorder Personal history of traumatic brain injury Nicotine dependence, cigarettes, uncomplicated Psychiatric care Surgical History (Updated 07/24/25 @ 00:00 by CHANDRA Cali) No significant past surgical history Social History (Updated 05/30/25 @ 10:43 by Susana Reynolds [facility]) Smoking and tobacco/nicotine status: current every day tobacco/nicotine user cigarettes Packs smoked per day: 1 Alcohol intake: unknown Substance/Drug Use: current Substance/Drug use frequency: daily Other substance/drug use details: Episodic methamphetamine use, last use 04/29/25 Additional social history: Lives with his mother Household members: other Details: Mother Housing: House Physical Exam Const: COMMON NORMALS: no acute distress GENERAL APPEARANCE: cooperative and comfortable ORIENTATION/CONSCIOUSNESS: Yes awake, Yes oriented to person, Yes oriented to place and Yes oriented to time HENMT: COMMON NORMALS: normocephalic, atraumatic and hearing grossly normal bilaterally HEAD & SCALP: normocephalic and atraumatic Resp: COMMON NORMALS: normal respiratory effort, No retractions, No use of accessory muscles and clear to auscultation bilaterally AUSCULTATION: clear to auscultation bilaterally Cardio: COMMON NORMALS: regular rate, regular rhythm and No murmurs present (Cardio) RATE: regular rate RHYTHM: regular rhythm GI: COMMON NORMALS: Soft to palpation and No hepatosplenomegaly present AUSCULTATION: Yes normoactive bowel sounds PALPATION: Yes Soft to palpation, No Tenderness to palpation present (GI), No Guarding due to palpation present (GI) and Yes No hepatosplenomegaly present Extremity: COMMON NORMALS: normal to inspection, capillary refill normal, no clubbing, cyanosis or edema, no calf tenderness and no pedal edema Neuro: SENSORIUM/ORIENTATION: Yes oriented to person, Yes oriented to place and Yes oriented to time Skin: COMMON NORMALS: no rashes or lesions noted GENERAL SKIN EXAM: no rashes or lesions noted Course Vital Signs: Vital signs: Vital Signs Temperature 98 F 07/28/25 15:49 Pulse Rate 104 H 07/28/25 16:34 Respiratory Rate 16 07/28/25 16:34 Blood Pressure 122/71 07/28/25 16:34 Pulse Oximetry 93 07/28/25 16:34 Oxygen Delivery Me thod Nasal Cannula 07/28/25 16:34 Oxygen Flow Rate 2 07/28/25 16:34 MDM - Psych Medical Decision Making Patient acutely psychotic additionally made suicidal ideation claims to law enforcement. Will work on placement. He is hypokalemic which we have ordered supplementation for. Magnesium was normal. Patient was very agitated when he first arrived to help with anxiety he was given Geodon Ativan and Benadryl. This was very effective. We are working on placement for the patient. Medical Records I reviewed the patient's medical records. Lab Data I reviewed the patient's lab results. 07/28/25 15:49 07/28/25 15:49 Laboratory Results WBC 8.54 10^3/uL (3.29-11.43) 07/28/25 15:49 RBC 4.46 10^6/uL (3.85-5.65) 07/28/25 15:49 Hgb 13.70 g/dL (11.27-16.99) 07/28/25 15:49 Hct 39.9 % (37-53) 07/28/25 15:49 MCV 89.5 fl (82-101) 07/28/25 15:49 MCH 30.7 pg (27-33) 07/28/25 15:49 MCHC 34.3 g/dL (30-55) 07/28/25 15:49 RDW 13.0 % (12.1-15.1) 07/28/25 15:49 Plt Count 216 10^3/cmm (157-399) 07/28/25 15:49 MPV 10.7 fL (7.4-10.4) H 07/28/25 15:49 Neut % (Auto) 69.2 % 07/28/25 15:49 Lymph % (Auto) 21.7 % 07/28/25 15:49 [place] % (Auto) 7.8 % 07/28/25 15:49 Eos % (Auto) 0.4 % 07/28/25 15:49 Baso % (Auto) 0.7 % 07/28/25 15:49 Neut # (Auto) 5.91 10^3/uL (1.8-7.7) 07/28/25 15:49 Lymph # (Auto) 1.9 10^3/uL (0.8-4.8) 07/28/25 15:49 [place] # (Auto) 0.7 10^3/uL (0.2-0.9) 07/28/25 15:49 Eos # (Auto) 0.0 10^3/uL (0.0-0.8) 07/28/25 15:49 Baso # (Auto) 0.1 10^3/uL (0.0-0.1) 07/28/25 15:49 Nucleated RBC % (auto) 0 % 07/28/25 15:49 Nucleated RBCs # 0.0 /100WBC 07/28/25 15:49 Sodium 140 mmol/L (136-145) 07/28/25 15:49 Potassium 2.6 mmol/L (3.5-5.1) L* 07/28/25 15:49 Chloride 100 mmol/L (98-107) 07/28/25 15:49 Carbon Dioxide 22 mmol/L (22-29) 07/28/25 15:49 Anion Gap 20.6 (5-19) H 07/28/25 15:49 BUN 14 mg/dL (6-20) 07/28/25 15:49 Creatinine 1.2 mg/dL (0.7-1.2) 07/28/25 15:49 GFR Calculation 65.5 mL/min (90-130) L 07/28/25 15:49 Glucose 120 mg/dL (65-115) H 07/28/25 15:49 Calculated Osmolality 292 mOsm/kg (285-295) 07/28/25 15:49 Calcium 9.0 mg/dL (8.5-10.5) 07/28/25 15:49 Magnesium 2.2 mg/dL (1.7-2.3) 07/28/25 15:49 Total Bilirubin 0.8 mg/dL (0.15-1.2) 07/28/25 15:49 AST 33 U/L (0-40) 07/28/25 15:49 ALT 30 U/L (0-41) 07/28/25 15:49 Alkaline Phosphatase 88 U/L (40-130) 07/28/25 15:49 Total Protein 6.9 g/dL (6.6-8.7) 07/28/25 15:49 Albumin 4.3 g/dL (3.5-5.2) 07/28/25 15:49 Globulin 2.6 g/dL (1.3-4.6) 07/28/25 15:49 Salicylates < 0.3 mg/dL (3-10) L 07/28/25 15:49 Acetaminophen < 5.0 ug/mL (10-30) L 07/28/25 15:49 Ethyl Alcohol < 10 mg/dL (0-10) 07/28/25 15:49 Influenza A (PCR) Negative (Negative) 07/28/25 15:59 Influenza Type B (PCR) Negative (Negative) 07/28/25 15:59 RSV (PCR) Negative (Negative) 07/28/25 15:59 SARS-CoV-2 (PCR) Negative (Negative) 07/28/25 15:59 No radiology studies performed this visit Discharge Plan Discharge Patient Disposition: Xfer Psychiatric Hosp Clinical Impression: Acute psychosis, Suicidal ideation, Bipolar disorder, Personal history of traumatic brain injury Condition: Stable Referrals: Ariel Bui DO [Primary Care Provider, [facility]] Print Language: Estonian Coding Level of Care Code ED Reinsurance Clerk for Jessika Adrian
[2025-07-28] MEDS: LORazepam 2 mg/mL INJ 1 mL IM (15:23)
[2025-07-28] MEDS: diphenhydrAMINE 50 mg/mL SDV 1mL IM (15:31)
--- NOTE | 2025-07-28 15:31 | PC.NURSE ---
UNABLE TO OBTAIN VITALS AT TIME OF TRIAGE DUE TO PATIENT AGITATION.
[2025-07-28 15:49] VITALS: BP 114/80; PULSE 114; RESP 16; TEMP 36.6; O2SAT 94
--- NOTE | 2025-07-28 15:49 | PC.NURSE ---
PATIENT PLACED ON VITALS MACHINE DUE TO SEDATION MEDICATION.
[2025-07-28 15:57] LABS: Hematocrit 39.9 % (37-53); Hemoglobin 13.70 g/dL (11.27-16.99); Mean Corpuscular HGB Conc 34.3 g/dL (30-55); Mean Corpuscular Hemoglobin 30.7 pg (27-33); Mean Corpuscular Volume 89.5 fl (82-101); Nucleated Red Blood Cells % 0 %; Platelet Count 216 10^3/cmm (157-399); Red Blood Count 4.46 10^6/uL (3.85-5.65); White Blood Count 8.54 10^3/uL (3.29-11.43)
[2025-07-28 15:59] VITALS: PULSE 108; O2SAT 88
--- NOTE | 2025-07-28 15:59 | PC.NURSE ---
PATIENT PLACED ON 2 L NC DUE TO RESTRAINT MEDICATIONS.
[2025-07-28 16:18] LABS: Alanine Aminotransferase 30 U/L (0-41); Albumin Level 4.3 g/dL (3.5-5.2); Alkaline Phosphatase 88 U/L (40-130); Anion Gap 20.6 (5-19); Aspartate Amino Transferase 33 U/L (0-40); Blood Urea Nitrogen 14 mg/dL (6-20); Calcium 9.0 mg/dL (8.5-10.5); Carbon Dioxide 22 mmol/L (22-29); Chloride 100 mmol/L (98-107); Globulin 2.6 g/dL (1.3-4.6); Glucose 120 mg/dL (65-115); Osmolality Calculated 292 mOsm/kg (285-295); Sodium 140 mmol/L (136-145); Total Protein 6.9 g/dL (6.6-8.7)
[2025-07-28 16:19] LABS: Acetaminophen < 5.0 ug/mL (10-30); Alcohol Level < 10 mg/dL (0-10); Salicylate < 0.3 mg/dL (3-10)
[2025-07-28 16:20] LABS: Potassium 2.6 mmol/L (3.5-5.1)
[2025-07-28 16:34] VITALS: BP 122/71; PULSE 104; RESP 16; O2SAT 93
[2025-07-28 16:42] LABS: Respiratory Syncytial Virus Ce NEGATIVE (Negative); SARS-CoV-2 PCR NEGATIVE (Negative)
[2025-07-28 16:43] LABS: Magnesium 2.2 mg/dL (1.7-2.3)
--- NOTE | 2025-07-28 17:24 | PC.NURSE ---
96 hr rights reviewed with pt @[id number] with assistance of [facility] veterans service officer Bayron Shay All education attempted to be reviewed with pt at this time. Pt escalated in behavior screaming and cussing at nursing staff. PRN meds given. Pt verbalized he knew what 96 hr hold parameters entailed. Pt copy of rights was left with pt belongings.
[2025-07-28 17:27] VITALS: BP 118/72; PULSE 93; RESP 16; O2SAT 95
[2025-07-28 18:14] VITALS: PULSE 92; RESP 16; O2SAT 94
--- NOTE | 2025-07-28 18:14 | PC.NURSE ---
PATIENT POTASSIUM AND URINE COLLECTION DELAYED DUE TO PATIENT DROWSINESS.
[2025-07-28 18:48] VITALS: BP 118/70; PULSE 88; RESP 16; O2SAT 95
[2025-07-28] MEDS: potassium chloride oral liq 20 mEq/15 mL UDC 40 MEQ PO (20:01)
[2025-07-28 21:12] LABS: Glucose Urine UA Negative (Normal); Nitrate Urine Negative (Negative); Specific Gravity, Urine 1.023 (1.005-1.030)
[2025-07-28 21:17] LABS: Add Urine Microscopic? YES; Universal Test for UA Present (0)
[2025-07-28 21:19] LABS: PCP Screen Urine Negative (Negative)
[2025-07-29 06:05] VITALS: BP 101/65; PULSE 75; RESP 16; O2SAT 98
[2025-07-29 07:30] LABS: Anion Gap 16.3 (5-19); Blood Urea Nitrogen 16 mg/dL (6-20); Calcium 8.8 mg/dL (8.5-10.5); Carbon Dioxide 25 mmol/L (22-29); Chloride 101 mmol/L (98-107); Glucose 96 mg/dL (65-115); Osmolality Calculated 289 mOsm/kg (285-295); Potassium 3.3 mmol/L (3.5-5.1); Sodium 139 mmol/L (136-145)
[2025-07-29] MEDS: potassium chloride oral liq 20 mEq/15 mL UDC PO (08:48)
--- NOTE | 2025-07-29 08:55 | PC.NURSE ---
PT DRESSED OUT BY [employer]IST ZINA Nixon PT COMPLIANT AND COOPERATIVE.
[2025-07-29 10:31] VITALS: BP 146/79; PULSE 115; RESP 20; TEMP 36.2; O2SAT 93
[2025-07-29] MEDS: LORazepam 2 mg/mL INJ 1 mL IM (12:46)
[2025-07-29] MEDS: haloperidol inj 5 mg/mL INJ 1 mL IM (12:46)
[2025-07-29] MEDS: diphenhydrAMINE 50 mg/mL SDV 1mL IM (12:47)
--- NOTE | 2025-07-29 12:47 | PC.NURSE ---
Pt arrived to the unit, pt very antsy, refusing to sit still & not giving much information to staff. Pt increasing in agitation about being brought down to the unit stating I have a psychiatrist and I dont need these shit doctors but I cant get to her because I am here in this place again . Pt was given an IM B52. Pt took shots w/out issue w/ charge / staff / security present. Pt is now in the dayroom standing & moving around- unable to stand still, talking to himself, & responding to internal stimuli. Pt monitoring cont.
[2025-07-29 14:00] VITALS: RESP 16
--- NOTE | 2025-07-29 15:34 | PC.NURSE ---
pt refused vitals
[2025-07-29 20:08] VITALS: BP 132/82; PULSE 87; RESP 18; TEMP 37.1; O2SAT 97
[2025-07-30 06:00] VITALS: BP 112/73; PULSE 81; RESP 16; TEMP 36.7; O2SAT 95
--- NOTE | 2025-07-30 09:42 | PC.OT ---
OT EVALUATION ATTEMPTED IN A.M. PATIENT SNORING AND SLEEPING SOUNDLY.
--- NOTE | 2025-07-30 09:53 | W.PM.NPUH&PS ---
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 disorder, recurrent episode, moderate with anxious distress 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 Cannabis use disorder, moderate, dependence Generalized anxiety disorder Personal history of traumatic brain injury Nicotine dependence, cigarettes, uncomplicated Psychiatric care Surgical History (Updated 07/24/25 @ 00:00 by CHANDRA Cali) No significant past surgical history Social History (Updated 05/30/25 @ 10:43 by Susana Reynolds, [facility]) Smoking and tobacco/nicotine status: current every day tobacco/nicotine user cigarettes Packs smoked per day: 1 Alcohol intake: unknown Substance/Drug Use: current Substance/Drug use frequency: daily Other substance/drug use details: Episodic methamphetamine use, last use 04/29/25 Additional social history: Lives with his mother Household members: other Details: Mother Housing: House Mental Status Exam MSE Comments: This is a well-nourished, well-developed, white male in hospital scrubs with poor grooming and fair eye contact. No abnormal involuntary motor movements except for mild to moderate psychomotor agitation. He was cooperative and appeared in moderate distress. Speech was increased in productivity in rate and normal in volume and prosody. Mood described as okay but I do not need to be here, affect was hyperkinetic. Thought process was circumstantial. Thought content: patient denied any suicidal or homicidal ideation, there was no evidence of any flight of ideas. There was some clear evidence of grandiosity. There was some evidence of overvalued ideas. There was no clear evidence of delusional thinking. He did not appear to be responding to internal stimuli. His attention span appeared poor. He was easily distracted. He is alert and oriented to person and place, but not date or day of week. Insight and judgment are impaired. Impulse control is impaired.? ?Recent and remote memory was poor. Vitals/I&O/Wt Last Vital Signs Temp 98.1 F 07/30/25 06:00 Pulse 81 07/30/25 06:00 Resp 16 07/30/25 06:00 BP 112/73 07/30/25 06:00 Pulse Ox 95 07/30/25 06:00 O2 Del Method Room Air 07/30/25 06:00 O2 Flow Rate 2 07/28/25 17:27 Weight last 48 hrs Weight 72.575 kg Data NPU 07/28/25 15:49 07/29/25 07:05 A&P Assessment and plan 1. Methamphetamine-induced psychotic disorder: 2. Psychosis: 3. Suicidal ideation: 4. Methamphetamine use disorder, severe: 5. Bipolar affective, manic, unspec: 6. Other stimulant dependence with stimulant-induced mood disorder: Plan: This is a 44-year-old white male with a long history of psychosis and use of THC and Methamphetamine who commonly presents with active addiction and psychosis and this presentation is no different with him presenting that way but as he often does stating that there is no reason to be here and is not sure why somebody put him on a hold except that his mom is probably mad and doing this just to spite him. 1. Continue current medications 2. Continue every 15 minute checks for safety. 3. Encourage individual, group and milieu therapies. 4. Encourage sober living treatment after discharge at the highest level of care to which he is willing to commit. 5. Obtain collateral information. 6. Observe against the backdrop of the 96-hour hold. PDMP PDMP Reviewed: Not Reviewed Involuntary Hold Information Hold Status: Legal Status: 96 Hour Hold Date/Time Hold Expires: 08/05/25 @ 0001 96 Hour Hold: 96 Hour Involuntary Admission: Yes Other Hold: Hold End Date: 08/30/24 Attestations NPU Medical Necessity Statement*: Inpatient hospitalization is medically necessary, and the clinically appropriate intervention at this time. We will monitor/initiate medications and make changes as indicated. He will be in the hospital for over two midnights. The patient's likely length of stay 3-5days. Coding Level of Care Code Acute Code for g Fwd Diagnoses Methamphetamine-induced psychotic disorder F15.959 Psychosis F29 Suicidal ideation R45.851 Methamphetamine use disorder, severe F15.20 Bipolar affective, manic, unspec F31.10 Other stimulant dependence with stimulant-induced mood disorder F15.24
[2025-07-30 14:00] VITALS: BP 130/88; PULSE 116; RESP 16; TEMP 36.7; O2SAT 97
[2025-07-30 19:42] VITALS: BP 115/76; PULSE 88; RESP 18; O2SAT 97
[2025-07-31 06:00] VITALS: BP 114/62; PULSE 73; RESP 16; O2SAT 94
--- NOTE | 2025-07-31 08:11 | P.NPUPN_ITS ---
Subjective NPU 2 Subjective: Patient presented today reporting that things were going fine. He continues to focus on his mother as a cause of him being here and not really focusing on his active addiction behavior. He reports that he does not need long-term treatment just needs to continue to avoid certain situations. He denied any side effects of medication. Mental Status Exam 2 MSE Comments: This is a well-nourished, well-developed, white male in hospital scrubs with poor grooming and fair eye contact. No abnormal involuntary motor movements except for mild to moderate psychomotor agitation. He was cooperative and appeared in moderate distress. Speech was increased in productivity in rate and normal in volume and prosody. Mood described as okay but I do not need to be here, affect was hyperkinetic. Thought process was circumstantial. Thought content: patient denied any suicidal or homicidal ideation, there was no evidence of any flight of ideas. There was some clear evidence of grandiosity. There was some evidence of overvalued ideas. There was no clear evidence of delusional thinking. He did not appear to be responding to internal stimuli. His attention span appeared poor. He was easily distracted. He is alert and oriented to person and place, but not date or day of week. Insight and judgment are impaired. Impulse control is impaired.? ?Recent and remote memory was poor. Vitals/I&O/Wt Last Vital Signs Temp 98.0 F 07/30/25 14:00 Pulse 73 07/31/25 06:00 Resp 16 07/31/25 06:00 BP 114/62 07/31/25 06:00 Pulse Ox 94 07/31/25 06:00 O2 Del Method Room Air 07/31/25 06:00 O2 Flow Rate 2 07/28/25 17:27 Data NPU 07/28/25 15:49 07/29/25 07:05 A&P Assessment and plan 1. Methamphetamine-induced psychotic disorder: 2. Psychosis: 3. Suicidal ideation: 4. Methamphetamine use disorder, severe: 5. Bipolar affective, manic, unspec: 6. Other stimulant dependence with stimulant-induced mood disorder: Plan: This is a 44-year-old white male with a long history of psychosis and use of THC and Methamphetamine who commonly presents with active addiction and psychosis and this presentation is no different with him presenting that way but as he often does stating that there is no reason to be here and is not sure why somebody put him on a hold except that his mom is probably mad and doing this just to spite him. 1. Continue current medications 2. Continue every 15 minute checks for safety. 3. Encourage individual, group and milieu therapies. 4. Encourage sober living treatment after discharge at the highest level of care to which he is willing to commit. 5. Obtain collateral information. 6. Observe against the backdrop of the 96-hour hold. PDMP PDMP Reviewed: Not Reviewed Involuntary Hold Information 2 Hold Status: Legal Status: 96 Hour Hold Date/Time Hold Expires: 08/05/25 @ 0001 96 Hour Hold: 96 Hour Involuntary Admission: Yes Other Hold: Hold End Date: 08/30/24 Attestations NPU 2 Medical Necessity Statement*: Inpatient hospitalization is medically necessary, and the clinically appropriate intervention at this time. We will monitor/initiate medications and make changes as indicated. The patient's likely length of stay 2-4 days. Coding Level of Care Code Acute Code for [facility] Fwd Diagnoses Methamphetamine-induced psychotic disorder F15.959 Psychosis F29 Suicidal ideation R45.851 Methamphetamine use disorder, severe F15.20 Bipolar affective, manic, unspec F31.10 Other stimulant dependence with stimulant-induced mood disorder F15.24
--- NOTE | 2025-07-31 13:21 | XR_ITS ---
WS: [id number] Exam: XR hand RT min 3V* [id number] Date/Time of Exam: 07/31/2025 1:28 PM Reason For Exam: hand and middle finger swollen, pt denies punching wall DLP: No acute fracture. The joints are preserved. Mild soft tissue swelling of the third finger. No soft tissue foreign bodies. IMPRESSION1. No fracture. 2. Mild soft tissue swelling of the third finger.
[2025-07-31 13:42] VITALS: BP 127/89; PULSE 91; RESP 16; TEMP 36.8; O2SAT 96
[2025-07-31 19:53] VITALS: BP 141/98; PULSE 87; RESP 17; TEMP 36.6; O2SAT 96
[2025-08-01 06:00] VITALS: BP 116/75; PULSE 82; RESP 16; O2SAT 95
--- NOTE | 2025-08-01 11:51 | P.NPUDS_ITS ---
Diagnoses at Discharge Discharge Diagnosis 1. Methamphetamine-induced psychotic disorder: 2. Psychosis: 3. Suicidal ideation: 4. Methamphetamine use disorder, severe: 5. Bipolar affective, manic, unspec: 6. Other stimulant dependence with stimulant-induced mood disorder: Reason for Visit Reason for Visit: mhe Involuntary Hold Information Hold Status: Legal Status: 96 Hour Hold Date/Time Hold Expires: 08/05/25 @ 0001 96 Hour Hold: 96 Hour Involuntary Admission: Yes Other Hold: Hold End Date: 08/30/24 Discharge Data Studies Completed and Pending: Completed Studies During Hospitalization Category Date Time Status XR hand RT min 3V * [id number] Routine Exams 07/31/25 13:21 Completed Laboratory Results WBC 8.54 10^3/uL (3.2 9-11.43) 07/28/25 15:49 RBC 4.46 10^6/uL (3.8 5-5.65) 07/28/25 15:49 Hgb 13.70 g/dL (11.27 -16.99) 07/28/25 15:49 Hct 39.9 % (37-53) 07/28/25 15:49 MCV 89.5 fl (82-101) 07/28/25 15:49 MCH 30.7 pg (27-33) 07/28/25 15:49 MCHC 34.3 g/dL (30-55) 07/28/25 15:49 RDW 13.0 % (12.1-15.1 ) 07/28/25 15:49 Plt Count 216 10^3/cmm (157 -399) 07/28/25 15:49 MPV 10.7 fL (7.4-10.4 ) H 07/28/25 15:49 Neut % (Auto) 69.2 % 07/28/25 15:49 Lymph % (Auto) 21.7 % 07/28/25 15:49 [place] % (Auto) 7.8 % 07/28/25 15:49 Eos % (Auto) 0.4 % 07/28/25 15:49 Baso % (Auto) 0.7 % 07/28/25 15:49 Neut # (Auto) 5.91 10^3/uL (1.8 -7.7) 07/28/25 15:49 Lymph # (Auto) 1.9 10^3/uL (0.8- 4.8) 07/28/25 15:49 [place] # (Auto) 0.7 10^3/uL (0.2- 0.9) 07/28/25 15:49 Eos # (Auto) 0.0 10^3/uL (0.0- 0.8) 07/28/25 15:49 Baso # (Auto) 0.1 10^3/uL (0.0- 0.1) 07/28/25 15:49 Nucleated RBC % (a uto) 0 % 07/28/25 15:49 Nucleated RBCs # 0.0 /100WBC 07/28/25 15:49 Sodium 139 mmol/L (136-1 45) 07/29/25 07:05 Potassium 3.3 mmol/L (3.5-5 .1) L 07/29/25 07:05 Chloride 101 mmol/L (98-10 7) 07/29/25 07:05 Carbon Dioxide 25 mmol/L (22-29) 07/29/25 07:05 Anion Gap 16.3 (5-19) 07/29/25 07:05 BUN 16 mg/dL (6-20) 07/29/25 07:05 Creatinine 1.2 mg/dL (0.7-1. 2) 07/29/25 07:05 GFR Calculation 65.5 mL/min (90-1 30) L 07/29/25 07:05 Glucose 96 mg/dL (65-115) 07/29/25 07:05 POC Glucose 109 mg/dL (70-110 ) 07/29/25 11:24 Calculated Osmolal ity 289 mOsm/kg (285- 295) 07/29/25 07:05 Calcium 8.8 mg/dL (8.5-10 .5) 07/29/25 07:05 Magnesium 2.2 mg/dL (1.7-2. 3) 07/28/25 15:49 Total Bilirubin 0.8 mg/dL (0.15-1 .2) 07/28/25 15:49 AST 33 U/L (0-40) 07/28/25 15:49 ALT 30 U/L (0-41) 07/28/25 15:49 Alkaline Phosphata se 88 U/L (40-130) 07/28/25 15:49 Total Protein 6.9 g/dL (6.6-8.7 ) 07/28/25 15:49 Albumin 4.3 g/dL (3.5-5.2 ) 07/28/25 15:49 Globulin 2.6 g/dL (1.3-4.6 ) 07/28/25 15:49 Urine Color [place] (Yellow) A 07/28/25 20:53 Urine Appearance Cloudy (CLEAR) A 07/28/25 20:53 Urine pH 5.5 (5-7) 07/28/25 20:53 Ur Specific Gravit y 1.023 (1.005-1.0 30) 07/28/25 20:53 Urine Protein Trace (Negative) A 07/28/25 20:53 Urine Glucose (UA) Negative (Normal ) 07/28/25 20: Urine Ketones Trace (Negative) 07/28/25 20:53 Urine Blood Negative (Negati ve) 07/28/25 20:53 Urine Nitrate Negative (Negati ve) 07/28/25 20:53 Urine Bilirubin 1+ (Negative) H 07/28/25 20:53 Urine Urobilinogen 1.0 mg/dL (Negati ve) 07/28/25 20:53 Ur Leukocyte [place] ase Negative (Negati ve) 07/28/25 20:53 Urine RBC 0-2 /hpf (0-2) 07/28/25 20:53 Urine WBC 6-10 /hpf (0-5) 07/28/25 20:53 Ur Squamous Epith Cells 0-5 /hpf (0-5) 07/28/25 20:53 Amorphous Sediment Not Reportable 07/28/25 20:53 Urine Bacteria None seen /hpf (N ONE) 07/28/25 20:53 Hyaline Casts 9.51 /lpf 07/28/25 20:53 Urine Mucus 2+ /hpf 07/28/25 20:53 Salicylates < 0.3 mg/dL (3-10 ) L 07/28/25 15:49 Urine Opiates Scre en Negative ng/mL (N egative) 07/28/25 20:53 Acetaminophen < 5.0 ug/mL (10-3 0) L 07/28/25 15:49 Ur Barbiturates Sc reen Negative ng/mL (N egative) 07/28/25 20:53 Ur Phencyclidine S crn Negative ng/mL (N egative) 07/28/25 20:53 Ur Amphetamines Sc reen Positive ng/mL (N egative) H 07/28/25 20:53 U Benzodiazepines Scrn Positive ng/mL (N egative) H 07/28/25 20:53 Urine Cocaine Scre en Negative ng/mL (N egative) 07/28/25 20:53 U Marijuana (THC) Screen Positive ng/mL (N egative) H 07/28/25 20:53 Ethyl Alcohol < 10 mg/dL (0-10) 07/28/25 15:49 Influenza A (PCR) Negative (Negati ve) 07/28/25 15:59 Influenza Type B ( PCR) Negative (Negati ve) 07/28/25 15:59 RSV (PCR) Negative (Negati ve) 07/28/25 15:59 SARS-CoV-2 (PCR) Negative (Negati ve) 07/28/25 15:59 Vitals: Last Vital Signs Temp 97.9 F 07/31/25 19:53 Pulse 82 08/01/25 06:00 Resp 16 08/01/25 06:00 BP 116/75 08/01/25 06:00 Pulse Ox 95 08/01/25 06:00 O2 Del Method Room Air 08/01/25 06:00 O2 Flow Rate 2 07/28/25 17:27 Discharge Plan Discharge Patient Disposition: Home Condition: Stable Prescriptions: Continued divalproex 500 mg Tablet Extended Release 24 Hr 1,000 mg PO DAILY 30 Days Qty: 60 1RF olanzapine 5 mg Tablet,Disintegrating 5 mg PO DAILY PRN (Reason: Agitation/Psychosis) 30 Days Qty: 30 1RF hydroxyzine pamoate 25 mg Capsule 50 mg PO Q6H PRN (Reason: Anxiety) 30 Days Qty: 120 1RF lurasidone [Latuda] 20 mg Tablet 20 mg PO 1800 30 Days Qty: 30 1RF trazodone 50 mg tablet 50 mg PO BEDTIME PRN (Reason: Sleep/insomnia) 30 Days Qty: 60 1RF Rx Instructions: May take two tablets at bedtime as needed for sleep propranolol 10 mg tablet 10 mg PO TID Qty: 90 1RF Rx Instructions: Take one tablet three times per day Discharge Order = DC NOW: Discharge Order (Routine); Ordered 08/01/25 Ordered By: Oracio Senior Referrals: Ariel Bui DO [Primary Care Provider, [facility]] Discharge Diet: Regular Discharge Activity: Resume usual activity Patient Instructions: Opioid Safety, Patient Portal & Jessica Instructions Discharge Attestations NPU Status at Discharge: Cognitive status at discharge: cognitively intact , Behavioral status at discharge: can be uncooperative , Coding Level of Care Code Acute Code for [facility] Fwd Diagnoses Methamphetamine-induced psychotic disorder F15.959 Psychosis F29 Suicidal ideation R45.851 Methamphetamine use disorder, severe F15.20 Bipolar affective, manic, unspec F31.10 Other stimulant dependence with stimulant-induced mood disorder F15.24
[2025-08-01 13:46] VITALS: BP 132/94; PULSE 90; RESP 16; TEMP 36.6; O2SAT 97
[2025-08-01 14:01] VITALS: BP 132/94; PULSE 90; RESP 16; TEMP 36.6; O2SAT 97
== END 2025-08-01 15:36 | disposition home or self-care (01) | DRG 753 ==
LOC: ER 17:19 → ER IP 07-29 05:39 → NP 07-29 11:58
PROVIDERS: Admitting Provider Psychiatry & Neurology Psychiatry; Emergency Provider Family Medicine; PCP Family Medicine; Visit Provider Psychiatry & Neurology Psychiatry
DX: F31.10 Bipolar disorder, current episode manic without psychotic features, unspecified (principal); F15.259 Other stimulant dependence with stimulant-induced psychotic disorder, unspecified; R45.851 Suicidal ideations; Z91.148 Patient's other noncompliance with medication regimen for other reason
CPT/HCPCS: 36415; 36416; 73130; 80048; 80053; 80306; 80307; 81001; 82962; 83735; 85025; 87637; 96372; 97150; 97165; 99285; J1200; J1630; J2060; J3486; J9999

== ENCOUNTER 2025-08-27 09:14 | Emergency (ER) | payer BC, MEDICAID, SELFPAY ==
[2025-08-02 09:40] VITALS: BP 134/94; BMI 26.8
[2025-08-27 09:15] VITALS: BP 145/98; PULSE 115; RESP 18; TEMP 36.9; O2SAT 94
--- NOTE | 2025-08-27 09:19 | ED.C_ITS ---
HPI - Psych 2 General: Chief Complaint: Psychiatric Symptoms Stated Complaint: HI Time Seen by Provider: 08/27/25 09:15 Source: patient and police Mode of arrival: ambulatory Limitations: no limitations History of Present Illness: 45-year-old male is here with police has a history of bipolar along with drug abuse. Patient states that he has been hearing voices over the last 2 weeks states they are telling him to harm other people's. Patient appears very paranoid here. Associated symptoms: Reports auditory hallucinations Related Data Home Medications ?Medication ?Instructions ?Recorded ?Confirmed divalproex 500 mg tablet,extended 1,000 mg PO DAILY 08/27/25 release 24 hr hydroxyzine pamoate 25 mg capsule 50 mg PO Q6H PRN Anx iety 08/27/25 08/27/25 lurasidone 20 mg tablet 20 mg PO .Q6PM 08/27/25 12/0 06/13 olanzapine 5 mg disintegrating 5 mg PO DAILY PRN agita tion and 08/27/25 08/27/25 tablet psychosis propranolol 10 mg tablet 10 mg PO TID 08/27/25 trazodone 50 mg tablet 100 mg PO BEDTIME PRN 08/27/25 Sleep/insomnia Allergies Allergy/AdvReac Type Severity Reaction Status Date / Time No Known Allergies Allergy Verified 08/26/25 13:17 Review of Systems 2 Psych: Reports: auditory hallucinations [facility] ED 2 PFSH: Medical History (Updated 08/27/25 @ 12:50 by Praveena Cadena MD) Bipolar disorder Drug induced akathisia Tardive dyskinesia Managed with medication Austedo IR 9 mg BID Major depressive disorder, recurrent episode, moderate with anxious distress 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 A long time. ] Quit status (tobacco/nicotine): not considering quitting Second hand smoke exposure: Yes Alcohol intake: former Former alcohol use details: Does not remember the last time he drank alcohol Substance/Drug Use: current Substance/Drug use frequency: daily Other substance/drug use details: Episodic methamphetamine use, last use 04/29/25 Adopted: No Caregiver/support person: Yes (Mother ) Lives independently: No Household members: other Details: Mother Housing: House Marital status: Single Number of children: 0 Number of grandchildren: 0 Highest education level completed: High School Graduate service: No Current occupational status: unemployed Current occupation: Started disabilty and was not able to finish it Current occupational exposures/hazards: No Pets and animals: Yes Pets & animals: dog(s) Pets & animal details: Inside Leisure activites: music and other Leisure activities details: Hangout with his mom, watch tv Sexually active: No Do you think of yourself as: Straight/Heterosexual Current gender identity: Male Lanette/Spiritism: Yazdanism Special lanette needs: No Agree to transfusion: Yes Physical Exam 2 Const: COMMON NORMALS: no acute distress, patient oriented x3 and healthy appearing HENMT: COMMON NORMALS: normocephalic and atraumatic HEAD & SCALP: n ormocephalic and atraumatic Neck/C-Spine: COMMON NORMALS: full ROM and supple Chest: COMMONS NORMALS: normal inspection of the chest Resp: COMMON NORMALS: normal respiratory effort Cardio: COMMON NORMALS: regular rate, regular rhythm and No murmurs present (Cardio) RATE: regular rate RHYTHM: regular rhythm GI: COMMON NORMALS: Normal to inspection, nondistended, normoactive bowel sounds present, Soft to palpation, non-tender and no masses PALPATION: Yes Soft to palpation Extremity: COMMON NORMALS: normal to inspection and full ROM Neuro: COMMON NORMALS: patient oriented x3, moves all extremities and no focal motor deficits Psych: COMMON NORMALS: Normal thought process present and cooperative A CTIVITY/MOTOR BEHAVIOR: Yes psychomotor agitation THOUGHT PROCESS: Normal thought process present THOUGHT CONTENT: Yes Hallucination(s) present Skin: COMMON NORMALS: no rashes or lesions noted and no wounds GENERAL SKIN EXAM: no rashes or lesions noted Course 2 Vital Signs: Vital signs: Vital Signs Temperature 98.5 F 08/27/25 09:15 Pulse Rate 115 H 08/27/25 09:15 Respiratory Rate 18 08/27/25 09:15 Blood Pressure 145/98 08/27/25 09:15 Pulse Oximetry 94 08/27/25 09:15 Oxygen Delivery Me thod Room Air 08/27/25 09:15 [facility] - Psych Medical Decision Making 45-year-old male presents here with police with acute psychosis with hallucinations and homicidal ideation. Patient was placed on a 96-hour hold patient's lab work showed no significant abnormalities and he is medically cleared will transfer to [facility] facility as we have no adult psych beds available here. EKG interpreted by me at 1039 normal sinus rhythm heart rate [address] elevation QRS 89 QTc 395 Medical Records I reviewed the patient's medical records. Lab Data I reviewed the patient's lab results. 08/27/25 09:28 08/27/25 09:28 Laboratory Results WBC 8.58 10^3/uL (3.29-11.43) 08/27/25 09:28 RBC 5.18 10^6/uL (3.85-5.65) 08/27/25 09:28 Hgb 16.00 g/dL (11.27-16.99) 08/27/25 09: Hct 46.8 % (37-53) 08/27/25 09:28 MCV 90.3 fl (82-101) 08/27/25 09:28 MCH 30.9 pg (27-33) 08/27/25 09: MCHC 34.2 g/dL (30-55) 08/27/25 09: RDW 13.8 % (12.1-15.1) 08/27/25 09:28 Plt Count 308 10^3/cmm (157-399) 08/27/25 09: MPV 10.1 fL (7.4-10.4) 08/27/25 09: Neut % (Auto) 70.0 % 08/27/25 09:28 Lymph % (Auto) 20.9 % 08/27/25 09:28 [place] % (Auto) 5.5 % 08/27/25 09: Eos % (Auto) 2.7 % 08/27/25 09:28 Baso % (Auto) 0.7 % 08/27/25: Neut # (Auto) 6.01 10^3/uL (1.8-7.7) 08/27/25: Lymph # (Auto) 1.8 10^3/uL (0.8-4.8) 08/27/25: [place] # (Auto) 0.5 10^3/uL (0.2-0.9) 08/27/25: Eos # (Auto) 0.2 10^3/uL (0.0-0.8) 08/27/25: Baso # (Auto) 0.1 10^3/uL (0.0-0.1) 08/27/25: Nucleated RBC % (auto) 0 % 08/27/25 Nucleated RBCs # 0.0 /100WBC 08/27/25: Sodium 140 mmol/L (136-145) 08/27/25: Potassium 3.4 mmol/L (3.5-5.1) L 08/27/25: Chloride 104 mmol/L (98-107) 08/27/25: Carbon Dioxide 23 mmol/L (22-29) 08/27/25: Anion Gap 16.4 (5-19) 08/27/25: BUN 9 mg/dL (6-20) 08/27/25: Creatinine 0.9 mg/dL (0.7-1.2) 08/27/25 GFR Calculation 90.8 mL/min (90-130) 08/27/25: Glucose 122 mg/dL (65-115) H 08/27/25: Calculated Osmolality 290 mOsm/kg (285-295) 08/27/25: Calcium 8.9 mg/dL (8.5-10.5) 08/27/25: Total Bilirubin 0.6 mg/dL (0.15-1.2) 08/27/25 09: AST 12 U/L (0-40) 08/27/25: ALT 34 U/L (0-41) 08/27/25: Alkaline Phosphatase 95 U/L (40-130) 12/09/25 09:28 Total Protein 7.7 g/dL (6.6-8.7) 08/27/25 09:28 Albumin 4.6 g/dL (3.5-5.2) 08/27/25 09:28 Globulin 3.1 g/dL (1.3-4.6) 08/27/25 09:28 TSH 0.73 uIU/mL (0.27-4.20) 08/27/25 09:28 Salicylates < 0.3 mg/dL (3-10) L 08/27/25 09:28 Urine Opiates Screen Negative ng/mL (Negative) 08/27/25 09:27 Acetaminophen < 5.0 ug/mL (10-30) L 08/27/25 09:28 Ur Barbiturates Screen Negative ng/mL (Negative) 08/27/25 09:27 Ur Phencyclidine Scrn Negative ng/mL (Negative) 08/27/25 09:27 Ur Amphetamines Screen Negative ng/mL (Negative) 08/27/25 09:27 U Benzodiazepines Scrn Negative ng/mL (Negative) 08/27/25 09:27 Urine Cocaine Screen Negative ng/mL (Negative) 08/27/25 09:27 U Marijuana (THC) Screen Positive ng/mL (Negative) H 08/27/25 09:27 Ethyl Alcohol < 10 mg/dL (0-10) 08/27/25 09:28 Influenza A (PCR) Negative (Negative) 08/27/25 10:31 Influenza Type B (PCR) Negative (Negative) 08/27/25 10:31 RSV (PCR) Negative (Negative) 08/27/25 10:31 SARS-CoV-2 (PCR) Negative (Negative) 08/27/25 10:31 No radiology studies performed this visit Discharge Plan Discharge Patient Disposition: Xfer Psychiatric Hosp Clinical Impression: Acute psychosis Condition: Stable Referrals: Samuel Corey MD [Primary Care Provider, [facility]] Print Language: Pashto Coding Level of Care Code ED Fur Clipper for Jessika Adrian
[2025-08-27] MEDS: LORazepam 2 mg/mL INJ 1 mL IM (09:27)
[2025-08-27 09:35] LABS: Hematocrit 46.8 % (37-53); Hemoglobin 16.00 g/dL (11.27-16.99); Mean Corpuscular HGB Conc 34.2 g/dL (30-55); Mean Corpuscular Hemoglobin 30.9 pg (27-33); Mean Corpuscular Volume 90.3 fl (82-101); Nucleated Red Blood Cells % 0 %; Platelet Count 308 10^3/cmm (157-399); Red Blood Count 5.18 10^6/uL (3.85-5.65); White Blood Count 8.58 10^3/uL (3.29-11.43)
[2025-08-27 09:46] LABS: PCP Screen Urine Negative (Negative)
[2025-08-27 09:55] LABS: Alanine Aminotransferase 34 U/L (0-41); Albumin Level 4.6 g/dL (3.5-5.2); Alkaline Phosphatase 95 U/L (40-130); Anion Gap 16.4 (5-19); Aspartate Amino Transferase 12 U/L (0-40); Blood Urea Nitrogen 9 mg/dL (6-20); Calcium 8.9 mg/dL (8.5-10.5); Carbon Dioxide 23 mmol/L (22-29); Chloride 104 mmol/L (98-107); Globulin 3.1 g/dL (1.3-4.6); Glucose 122 mg/dL (65-115); Osmolality Calculated 290 mOsm/kg (285-295); Potassium 3.4 mmol/L (3.5-5.1); Sodium 140 mmol/L (136-145); Total Protein 7.7 g/dL (6.6-8.7)
[2025-08-27 09:56] LABS: Acetaminophen < 5.0 ug/mL (10-30); Alcohol Level < 10 mg/dL (0-10); Salicylate < 0.3 mg/dL (3-10)
--- NOTE | 2025-08-27 10:29 | PC.NURSE ---
96 hr rights reviewed with pt @[id number] with assistance of [facility] cash management officer Bayron. All education reviewed with pt at this time. Pt verbalized understanding to hold parameters. Copy of rights was placed with pt belongings. No further needs.
--- NOTE | 2025-08-27 10:39 | ECG_ITS ---
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 Measurements Intervals [place] Rate: 93 P: 38 CA: 165 QRS: 35 QRSD: 89 T: 29 QT: 344 QTc: 430 Interpretive Statements SINUS RHYTHM Compared to ECG 07/15/2025 23:18:17 Sinus tachycardia no longer present Electronically Signed On 08-29-2025 17:33:16 SIDE SAWYER by Fitz Muller M.D. [email or web address]
[2025-08-27 11:07] LABS: Thyroid Stimulating Hormone 0.73 uIU/mL (0.27-4.20)
[2025-08-27 11:13] LABS: Respiratory Syncytial Virus Ce NEGATIVE (Negative); SARS-CoV-2 PCR NEGATIVE (Negative)
--- NOTE | 2025-08-27 11:48 | PC.PHAR ---
Did not speak to pt. Called our pharmacy to verify fill date and day supply. Pt did pick them up.
== END 2025-08-27 15:59 ==
PROVIDERS: Emergency Provider Emergency Medicine; PCP Family Medicine
DX: F23 Brief psychotic disorder (principal); F12.10 Cannabis abuse, uncomplicated; F17.210 Nicotine dependence, cigarettes, uncomplicated
CPT/HCPCS: 36415; 80053; 80306; 80307; 84443; 85025; 87637; 93005; 96372; 99285; J2060